=== PATIENT | male | born 1975 | race Caucasian/White ===

== ENCOUNTER 2016-04-21 18:33 | Inpatient (IN) | payer MEDICAID ==
[2016-03-23 15:30] VITALS: Ht 167.6 cm; Wt 83.9 kg
[~2016-04-21] VITALS: Ht 167.6 cm; Wt 83.9 kg
[~2016-04-21 18:33] MED LIST: AMIT10TA6 PO; AMLO5TAB4 PO; BACL10TA PO; CAT.1 PO; CIPR-211 PO; FLOR.1 PO; FLUD0.1T PO; GABA-529 PO; HYDR-3109 PO; IBUP-1480 PO; LEVO500T20 PO; LISI10TA5 PO; LOSA100T11 PO; LOSA25TA3 PO; OXYC-133 PO; SULF1TAB48 PO; TAMS-11 PO; TRAM50TA92 PO; VITD2000 PO
[2016-04-21 18:45] VITALS: BP 74/53; PULSE 69; RESP 15; TEMP 96.9; O2SAT 98
--- NOTE | 2016-04-21 18:57 | NUR ---
Placed in room 01. Placed on brush clearing laborer, blood pressure machine and pulse oximeter. To gown for exam. Side rails up.
--- NOTE | 2016-04-21 19:00 | NUR ---
Pt brought by partner,A&Ox4, pt c/o dizziness, lighheaded,pale , 5/10 lower back pain, pt recently discharge from [place],VSS, pt c/o memory problems, cap refill <3, denies chest pain, no respiratory distress.
--- NOTE | 2016-04-21 19:00 | NUR ---
Dr La at bedside examining patient
[2016-04-21] MEDS ORDERED: NS 1000 ML BAG IV ONE (19:15)
[2016-04-21] MEDS ORDERED: LEVE500T13 PO (19:21)
[2016-04-21 19:58] LABS: BASOPHILS % (AUTO) 0.3 % (0.0-2.0); EOSINOPHILS # (AUTO) 0.1 K/uL (0.0-0.4); EOSINOPHILS % (AUTO) 1.8 % (0.0-4.0); HEMATOCRIT 31.8 % (36-54); HEMOGLOBIN 10.7 g/dL (14.0-18.0); LYMPHOCYTES # (AUTO) 1.6 K/uL (1.0-5.5); LYMPHOCYTES % (AUTO) 22.7 % (20.5-51.5); MEAN CORPUSCULAR HEMOGLOBIN 27 pg (27-31); MEAN CORPUSCULAR HGB CONC 34 % (32-36); MEAN CORPUSCULAR VOLUME 79 fL (79.0-98.0); MONOCYTES # (AUTO) 0.5 K/uL (0.0-1.0); MONOCYTES % (AUTO) 7.6 % (1.7-9.3); NEUTROPHILS # (AUTO) 4.6 K/uL (1.8-7.7); NEUTROPHILS % (AUTO) 67.6 % (40.0-70.0); PLATELET COUNT (AUTO) 629 K/uL (130-430); RED BLOOD CELL COUNT(AUTO) 4.02 MIL/uL (4.2-6.2); RED CELL DISTRIBUTION WIDTH 15.3 % (9.0-15.0); WHITE BLOOD COUNT (AUTO) 6.8 K/uL (4.8-10.8)
[2016-04-21 20:05] LABS: CALCIUM 9.1 mg/dL (8.4-11.0); CREATININE 0.82 mg/dL (0.55-1.30); POTASSIUM 3.7 mmol/L (3.5-5.1)
[2016-04-21 20:10] LABS: ALBUMIN 3.6 g/dL (3.4-4.8); TOTAL BILIRUBIN 0.3 mg/dL (0.0-1.0); TOTAL PROTEIN, SERUM 8.3 g/dL (6.4-8.3)
[2016-04-21 20:12] LABS: PROTHROMBIN TIME 10.4 SECS (9.5-12.5)
--- NOTE | 2016-04-21 20:19 | NUR ---
Pt sleeping at this time, hard to arouse, skin pink and warm, respirations even and unlabored, radial pulses equal and strong.
--- NOTE | 2016-04-21 20:22 | NUR ---
Dr Ness at bedside examining patient
--- NOTE | 2016-04-21 20:30 | NUR ---
Dr Ness notified about pt's BP 152/96, only 1 liter of NS was administered IV.
--- NOTE | 2016-04-21 20:44 | NUR ---
Deepika moreau in ED - 04/21/16 at 2236 by SDEDAFJ Pt awake at this time, VSS, ski pink and warm, cap refill <3.
--- NOTE | 2016-04-21 20:44 | NUR ---
Pt awake at this time, VSS, skin pink and warm, cap refill <3.
[2016-04-21] MEDS ORDERED: CIPR500S3 PO (20:56)
[2016-04-21] MEDS ORDERED: AMLO5TAB4 PO (20:56)
[2016-04-21 21:20] LABS: SALICYLATE 1 mg/dL (3-30)
[2016-04-21 21:39] LABS: ACETAMINOPHEN < 1 ug/mL (1-30); ALCOHOL, BLOOD < 3 mg/dL (<10)
[2016-04-21 21:47] LABS: BILIRUBIN,URINE NEGATIVE (NEGATIVE); BLOOD, URINE NEGATIVE (NEGATIVE); CLARITY/URINE HAZY (CLEAR); COLOR,URINE YELLOW (YELLOW); GLUCOSE,URINE NEGATIVE (NEGATIVE); KETONES,URINE NEGATIVE (NEGATIVE); LEUKOCYTE ESTERASE ,URINE 2+ (NEGATIVE); NITRITE, URINE NEGATIVE (NEGATIVE); PROTEIN URINE NEGATIVE (NEGATIVE); UROBILINOGEN,URINE 0.2 (0.2-1.0)
[2016-04-21] MEDS ORDERED: levETIRAcetam 500 MG TABLET PO ONE (22:15)
[2016-04-21] MEDS ORDERED: HYDROCORTISONE 1%, 28.35 GM TOPICAL CREAM TP PRN (22:15)
[2016-04-21 22:28] LABS: BACTERIA,URINE MODERATE /HPF (None Seen); RBC,URINE NONE SEEN /HPF (0-3); WBC,URINE 20-50 /HPF (0-3)
[2016-04-21 22:29] LABS: MUCUS,URINE 1+ /LPF (None Seen)
[2016-04-21 22:31] LABS: URINE AMORPHOUS URATE 2+ /HPF (None Seen)
--- NOTE | 2016-04-21 22:35 | NUR ---
Pt awake at this time, pt took kepra 500 mg PO, well tolerated
[2016-04-21 22:37] LABS: BARBITURATE, URINE NEGATIVE (NEG <=200); URINE AMPHETAMINE NEGATIVE (NEG <=500)
[2016-04-21 22:38] LABS: BENZODIAZEPINE, URINE NEGATIVE (NEG <=150); CANNABINOID, URINE NEGATIVE (NEG <=50); COCAINE, URINE NEGATIVE (NEG <=150); METHAMPHETAMINES SCREEN,URINE NEGATIVE (NEG <=500); OPIATE, URINE NEGATIVE (NEG <=100); PHENCYCLIDINE SCREEN,URINE NEGATIVE (NEG <=25); UR TRICYCLIC ANTIDEPRESSANTS NEGATIVE (NEG <=300); URINE METHADONE NEGATIVE (NEG <=200); URINE OXYCODONE SCREEN NEGATIVE (NEG <=100); URINE PROPOXYPHENE SCREEN NEGATIVE (NEG <=300)
[2016-04-21] MEDS ORDERED: KETOROLAC TROMETHAMINE 30 MG VIAL IVP ONE (23:15)
--- NOTE | 2016-04-21 23:22 | NUR ---
Report given to Td DEJESUS
[2016-04-22] VITALS (8 sets, daily range): BP systolic 92–157; BP diastolic 59–100; PULSE 59–64; RESP 15–18; TEMP 97.2–98.4; O2SAT 97–100
--- NOTE | 2016-04-22 00:48 | NUR ---
ADMISSION NOTE Received patient from ER via gurney. Patient admitted with diagnosis of Syncope. Patient is awake, alert, oriented X 4. Patient oriented to hospital room, call light, toileting, pain management and safety-teach back done. Patient informed that Pam and yessica will be his nursed and that their room number is 114A. Personal belongings checked and Belongings List documented. Call light within reach.
--- NOTE | 2016-04-22 01:00 | NUR ---
Patient will be admitted to care of DR FAM. Admitted to TELEMETRY unit. Will go to room 114-A. Belongings list completed. Summary report printed. Report given to REGINA .
--- NOTE | 2016-04-22 01:15 | NUR ---
CONSULT: DR TATE (DR AYON O/C) Consult was called, RE syncope sw Jailene
--- NOTE | 2016-04-22 01:16 | NUR ---
CONSULT: DR Perla GRULLON Consult was called, RE syncope sw Jailene
--- NOTE | 2016-04-22 02:45 | NUR ---
Rounds Patient has refused PRN tylenol that MD ordered. Is awake, and oriented X4, currently in supine position, no signs of acute distress noted, call light in reach, bed in low position, padded rails used as seizure precaution. Zavala catheter is draining well to gravity, continue to monitor
--- NOTE | 2016-04-22 02:45 | NUR ---
paged for Dr Kidd, dialed . s/w Ludy.
--- NOTE | 2016-04-22 03:36 | NUR ---
DR. FAM/PAIN MEDICATION ORDER AWARE PT IS COMPLAINING OF LOWER BACK PAIN 12/25, ORDERED TYLENOL 650MG PO FOR SEVERE PAIN. REPEATED ORDER TO AND CONFIRMED SHE WANTED THIS PAIN MED FOR SEVERE PAIN. ORDER IN PLACE. Addendum: 04/22/16 at 0343 by Vaishali Truong RN NOTE PUT IN BY WRONG PROVIDER.
[2016-04-22] MEDS ORDERED: ACETAMINOPHEN 325 MG TABLET PO PRN ×2 (03:45)
--- NOTE | 2016-04-22 04:12 | NUR ---
paged for Dr Kidd, dialed . s/w Ana.
--- NOTE | 2016-04-22 04:58 | NUR ---
second page for Dr Kidd, dialed . s/w Lara.
--- NOTE | 2016-04-22 05:15 | NUR ---
New med order for Benadryl Patient has requested Benadryl because "he is afraid to fall asleep he might have another seizure". MD order for 50 mg benadryl one time PO has been noted, pharmacy notified, med to be given as soon as pharmacy acknowledges new order
--- NOTE | 2016-04-22 05:58 | NUR ---
2D ECHO: NOTIFIED VIA PAGE G[facility]
[2016-04-22] MEDS ORDERED: DIPHENHYDRAMINE HCL 50 MG CAPSULE PO ONE (06:00)
--- NOTE | 2016-04-22 06:54 | NUR ---
refused accucheck Patient claims that he is not diabetic and does not want an accucheck at this time. The family also confirms that he is not diabetic. Order to be endorsed to be clarified by day shift with
--- NOTE | 2016-04-22 07:19 | NUR ---
Zavala Catheter was indwelling in patient from home Patient states that the indwelling catheter he has was in use at home. He says that the urine collection bag was changed in the ER but that the actual catheter was in use at his home.
--- NOTE | 2016-04-22 07:20 | NUR ---
Closing note report given to oncoming day nurse, bed is in low position, patient shows no signs of acute distress, call light is in reach, bed is in low position, indwelling catheter is flowing well to gravity. Care endorsed
--- NOTE | 2016-04-22 07:33 | NUR ---
DIET ORDER/CALLED DIETARY WAITING FOR BREAKFAST TRAY TO BE DELIVERED.
--- NOTE | 2016-04-22 08:30 | NUR ---
Pt in room in bed resting @ this time pt c/o pain 12/25 @ this time RN notified V/S stable Bp 97/66 P62 temp 97.4 RR 18 02 97% nurse continue to monitor pt
[2016-04-22] MEDS ORDERED: levETIRAcetam 500 MG TABLET PO SCH (09:00)
--- NOTE | 2016-04-22 09:21 | NUR ---
CALLED CARDIOLOGY CONSULT TO DR TATE, DR AYON INSTRUCTIONAL COORDINATOR, RE: SYNCOPE. SPOKE TO EMERITA
--- NOTE | 2016-04-22 09:24 | NUR ---
CALLED NEURO CONSULT TO Barbara ANDINO RE: SEIZURE. SPOKE TO EMERITA
--- NOTE | 2016-04-22 09:25 | NUR ---
CALLED ENDOCRINE CONSULT TO DR PATEL, RE: R/O ADRENAL INSUFFICIENCY. SPOKE TO VICENTA
--- NOTE | 2016-04-22 10:04 | NUR ---
Pt in room in bed awake @ this time pt c/o pain 12/25 pt requesting pain medication WORD PROCESSING SUPERVISOR notified
[2016-04-22] MEDS ORDERED: IOHEXOL 100 ML IV ONE (11:38)
[2016-04-22 11:49] LABS: THYROID STIMULATING HORMONE 0.54 uIu/mL (0.34-4.82)
--- NOTE | 2016-04-22 12:10 | NUR ---
Pt off the unit @ this time for CT of the head
--- NOTE | 2016-04-22 14:15 | NUR ---
Pt in room in bed interacting with visitor @ this time pt continue to c/o pain Pt seen by Doctor awaiting for orders for pt pain @ this time
--- NOTE | 2016-04-22 16:09 | NUR ---
Pt continue to c/o pain 12/25 pt seen by Doctor no new orders @ this time
--- NOTE | 2016-04-22 16:39 | NUR ---
At about 1639 pt pushed call light stating he fell out of bed & got back in bed pt stated he hit his head on the floor when nurse got to pt room pt was sitting on bed with call light at his side pt V/S was taken Bp 98/67 p 72 temp 98.0 02 98% Charge Nurse notified Doctor called as well no skin break no injuries notice @ the time pt moved closer to nurse station for safety
--- NOTE | 2016-04-22 18:07 | NUR ---
Pt in room in bed resting @ this time with family @ his bedside call light in reach bed in low position wheels locked bed alarm on @ this time pt encourage to use call light for help nurse continue to monitor pt for safety
--- NOTE | 2016-04-22 18:26 | NUR ---
PAGED DR FAM, MAY ANDINO.
[2016-04-22] MEDS ORDERED: traMADol HCL HCL 50 MG TABLET (ULTRAM) PO PRN (19:15)
--- NOTE | 2016-04-22 19:30 | NUR ---
RECEIVED THE PT FROM THE DAY NURSE PT A/A/OX4 VS TAKEN PT STATES HE FELL AND WAS MOVED TO ROOM 105,C/O SEVERE BACK PAIN .ICE PACKS GIVEN REQUESTED.PAIN MEDICATION GIVEN BY THE DAY NURSE ,PT STATES ULTRAM DOES NOT WORK.IV INTACT TO RT FOREARM..CALL LIGHT WITHIN REACH .SEIZURE PADS IN PLACE.CONTINUE TO MONITOR.
--- NOTE | 2016-04-22 20:12 | NUR ---
NOTES PT C/O SEVERE BACK PAIN CHARGE NURSE AND MYSELF AT THE BEDSIDE AND FELT THE PTS FOREHEAD ,PER REQUEST OF THE PT.NO REDNESS OR SWELLING NOTED.PT STATES DR BOOTHE WAS GOING TO ORDER PAIN MEDICATION THEN WALKED OUT.CALL PLACED TO DR FAM.
--- NOTE | 2016-04-22 20:13 | NUR ---
Paged Dr Kidd, ana paula Crowe.
--- NOTE | 2016-04-22 20:15 | NUR ---
Patient stated he has a bump on his forehead: When doing rounds charge nurse and Kendrick ECKERT entered the room at the same time; Patient stated he has a bump on his left forehead (where he is pointing at) next to his hairline related to his fall from the previous shift. Assessment done by the Charge Nurse Ragini and Primary Nurse Kendrick but no noted bump or redness over the left forehead. When we said that there is no bump noted he got upset, and said we don't believe on him with very loud voice. Also upset about no pain medication was ordered but Ultram.
--- NOTE | 2016-04-22 20:16 | NUR ---
NOTES PT REFUSING LAB DRAW AND STATES HE MIGHT SIGN OUT AMA.WAITING FOR DR FAM TO CALL.
--- NOTE | 2016-04-22 20:18 | NUR ---
NOTES SPOKE WITH DR FAM WHO GAVE A ONE TIME ORDER FOR PAIN MEDICATION.PT WAS TOLD OF THE NEW ORDER.AND STATED THAT IS NOT ENOUGH.WIFEAND OTHER FAMILY MEMBERS ARE NIW HERE TREATING THE CHARGE NURSE AND MYSELF.SECURITY NOW HERE.ALONG WITH NURSING SENIOR TEST ENGINEER. Addendum: 04/22/16 at 2112 by Kendrick Tan LVN NOT TREATING BUT THREATENING
--- NOTE | 2016-04-22 20:55 | NUR ---
Family at bedside: Family at bedside and talking and yelling at the same time; not happy because they said patient is not getting appropriate pain medication that he is suppose to have. Tried to explained the reason why MD doesn't want to give strong pain medication but doesn't want to listen; keeps on talking, yelling at the same time, security present and steffen house supervisor. Stated wants to leave the hospital, offer to sign AMA form but refused to sign.
--- NOTE | 2016-04-22 21:02 | NUR ---
NOTES PT REFUSED TO SIGN OUT AMA ,ALSO REFUSED TO GIVE ME HIS ARM BAND.MONITOR AND SALINE LOCK WERE REMOVED.PT TAKEN TO THE CAR BY FAMILY MEMBERS.
--- NOTE | 2016-04-22 21:05 | NUR ---
Paged Dr Kidd, ana paula Dyson.
--- NOTE | 2016-04-22 21:12 | NUR ---
CALL PLACED TO DR FAM AND DR AYON .DR FAM CALLED BACK AND WAS INFORMED OF THE AMA.
[2016-04-22] MEDS ORDERED: HYDROmorphone 1 MG INJ. 1 MG/ML AMPUL IVP ONE (21:15)
== END 2016-04-22 21:02 | disposition left against medical advice (07) | DRG 204 ==
LOC: SED 18:33 → STU 04-22 00:25
DX: R55 Syncope and collapse (principal); N39.0 Urinary tract infection, site not specified; I10 Essential (primary) hypertension; Z53.21 Procedure and treatment not carried out due to patient leaving prior to being seen by health care provider; G89.4 Chronic pain syndrome; H54.0 Blindness, both eyes; Z95.0 Presence of cardiac pacemaker; N40.1 Benign prostatic hyperplasia with lower urinary tract symptoms; W19.XXXA Unspecified fall, initial encounter; M45.9 Ankylosing spondylitis of unspecified sites in spine; E11.9 Type 2 diabetes mellitus without complications
CPT/HCPCS: 36415; 70470-TC; 71010; 72125-TC; 80053; 80307; 81000-TC; 82550-TC; 82607; 83605; 84443-TC; 84484; 85025; 85610-TC; 85730-TC; 87040-TC; 87081; 87086; 93005; 93306; 96360; 99285; G0480; G0481; G0482; J1885; J7030; Q0163; Q9967

== ENCOUNTER 2016-07-23 18:19 | Emergency (ER) | payer MEDICAID ==
[~2016-07-23] VITALS: Ht 167.6 cm; Wt 90.7 kg
[~2016-07-23 18:19] MED LIST changes: -AMIT10TA6 PO; -BACL10TA PO; -CIPR-211 PO; +CIPR500S3 PO; -FLOR.1 PO; -FLUD0.1T PO; -HYDR-3109 PO; -IBUP-1480 PO; +LEVE500T13 PO; -LEVO500T20 PO; -LISI10TA5 PO; -LOSA100T11 PO; -LOSA25TA3 PO; -OXYC-133 PO; -SULF1TAB48 PO; -TAMS-11 PO; -TRAM50TA92 PO
[2016-07-23 18:27] VITALS: BP_SYST 117
[2016-07-23 19:52] LABS: BILIRUBIN,URINE NEGATIVE (NEGATIVE); CLARITY/URINE CLEAR (CLEAR); COLOR,URINE YELLOW (YELLOW); GLUCOSE,URINE NEGATIVE (NEGATIVE); KETONES,URINE NEGATIVE (NEGATIVE); LEUKOCYTE ESTERASE ,URINE NEGATIVE (NEGATIVE); NITRITE, URINE NEGATIVE (NEGATIVE); PROTEIN URINE 1+ (NEGATIVE); UROBILINOGEN,URINE 0.2 (0.2-1.0)
[2016-07-23 19:53] LABS: BLOOD, URINE TRACE (NEGATIVE)
[2016-07-23 20:06] LABS: BACTERIA,URINE FEW /HPF (None Seen)
[2016-07-23 20:07] LABS: MUCUS,URINE 1+ /LPF (None Seen); OTHER CASTS, URINE WBC CASTS 1+ /LPF (None Seen)
[2016-07-23 21:30] VITALS: BP_SYST 120
== END 2016-07-23 21:30 | disposition home or self-care (01) ==
LOC: SED 18:19
DX: R33.9 Retention of urine, unspecified (principal); N39.0 Urinary tract infection, site not specified; I10 Essential (primary) hypertension; E11.29 Type 2 diabetes mellitus with other diabetic kidney complication; N28.9 Disorder of kidney and ureter, unspecified; H54.41 Blindness, right eye, normal vision left eye
CPT/HCPCS: 81000-TC; 99284

== ENCOUNTER 2016-08-24 19:45 | Inpatient (IN) | payer MEDICAID ==
[~2016-08-24] VITALS: Ht 167.6 cm; Wt 86.6 kg
[2016-08-24 19:50] VITALS: BP_SYST 161
[2016-08-24] MEDS ORDERED: NACL 0.9% 1,000 ML IV ONE (20:45)
[2016-08-24 21:15] LABS: BASOPHILS # (AUTO) 0.1 K/uL (0.0-0.2); BASOPHILS % (AUTO) 1.4 % (0.0-2.0); CALCIUM 9.5 mg/dL (8.4-11.0); CREATININE 1.07 mg/dL (0.55-1.30); EOSINOPHILS # (AUTO) 0.2 K/uL (0.0-0.4); EOSINOPHILS % (AUTO) 1.6 % (0.0-4.0); HEMATOCRIT 42.9 % (36-54); HEMOGLOBIN 14.1 g/dL (14.0-18.0); LYMPHOCYTES # (AUTO) 2.3 K/uL (1.0-5.5); MEAN CORPUSCULAR HEMOGLOBIN 27 pg (27-31); MEAN CORPUSCULAR HGB CONC 33 % (32-36); MEAN CORPUSCULAR VOLUME 83 fL (79.0-98.0); MONOCYTES # (AUTO) 0.8 K/uL (0.0-1.0); MONOCYTES % (AUTO) 8.5 % (1.7-9.3); NEUTROPHILS # (AUTO) 6.6 K/uL (1.8-7.7); NEUTROPHILS % (AUTO) 65.5 % (40.0-70.0); PLATELET COUNT (AUTO) 261 K/uL (130-430); POTASSIUM 3.8 mmol/L (3.5-5.1); RED BLOOD CELL COUNT(AUTO) 5.16 MIL/uL (4.2-6.2); RED CELL DISTRIBUTION WIDTH 19.8 % (9.0-15.0)
[2016-08-24 21:20] LABS: TOTAL BILIRUBIN 0.4 mg/dL (0.0-1.0); TOTAL PROTEIN, SERUM 9.2 g/dL (6.4-8.3)
[2016-08-24 21:33] LABS: BILIRUBIN,URINE NEGATIVE (NEGATIVE); BLOOD, URINE 3+ (NEGATIVE); KETONES,URINE NEGATIVE (NEGATIVE); LEUKOCYTE ESTERASE ,URINE 3+ (NEGATIVE); PROTEIN URINE 2+ (NEGATIVE)
[2016-08-24 21:41] LABS: CLARITY/URINE HAZY (CLEAR); COLOR,URINE ORANGE (YELLOW); GLUCOSE,URINE NEGATIVE (NEGATIVE); NITRITE, URINE NEGATIVE (NEGATIVE)
[2016-08-24 21:42] LABS: WBC,URINE 50-80 /HPF (0-3)
[2016-08-24 21:43] LABS: BACTERIA,URINE FEW /HPF (None Seen); MUCUS,URINE None Seen /LPF (None Seen)
[2016-08-24] MEDS ORDERED: cefTRIAXone 2 GM VIAL ONE (22:43)
[2016-08-24 23:15] VITALS: BP_SYST 145
[2016-08-24] MEDS ORDERED: LEVOFLOXACIN 500 MG/D5W 100 ML IV SCH (23:30)
[2016-08-25] MEDS ORDERED: ONDANSETRON HCL 4 MG/2 ML VIAL IVP PRN (01:00)
[2016-08-25] MEDS: MORPHINE 4 MG/ML INJ. SYRINGE IVP PRN ×6 (01:19→21:42)
[2016-08-25] MEDS: DIPHENHYDRAMINE INJ 50 MG/ML VIAL IVP PRN ×4 (01:36→18:18)
[2016-08-25] MEDS ORDERED: LEVOFLOXACIN 500 MG/D5W 100 ML IV ONE (02:32)
[2016-08-25] MEDS: NACL 0.9% 1,000 ML IV SCH ×3 (03:23→21:27)
[2016-08-25 04:38] VITALS: BP_SYST 129
[2016-08-25 08:00] VITALS: BP_SYST 117
[2016-08-25] MEDS ORDERED: DEXTROSE 50% JECT 50 ML DISP.SYRIN IVP PRN (08:00)
[2016-08-25] MEDS: GABAPENTIN 100 MG CAPSULE PO SCH ×3 (09:00→21:16)
[2016-08-25] MEDS: cefTRIAXone 1 GM in D5W 50 ML IV SCH (09:26)
[2016-08-25] MEDS: BACLOFEN 10 MG TABLET PO SCH ×4 (09:26→21:16)
[2016-08-25] MEDS: levETIRAcetam 500 MG TABLET PO SCH ×2 (09:27→21:16)
[2016-08-25] MEDS: amLODIPine BESYLATE 5 MG TABLET PO SCH (09:27)
[2016-08-25] MEDS: CIPROFLOXACIN HCL 500 MG TABLET PO SCH ×2 (09:27→21:17)
[2016-08-25] MEDS: cloNIDine HCL 0.1 MG TABLET PO SCH ×2 (09:27→21:16)
[2016-08-25] MEDS: HYDROcodone/ACETAMIN 5-325 MG TAB (NORCO/ VICODIN) PO PRN (09:28)
[2016-08-25 12:00] VITALS: BP_SYST 120
[2016-08-25 16:00] VITALS: BP_SYST 110
[2016-08-25 20:18] VITALS: BP_SYST 131
[2016-08-25] MEDS: INSULIN REGULAR, HUMAN 100 UNITS/ML, 10 ML VIAL (novoLIN R) SUBCUT PRN (21:27)
[2016-08-26] MEDS: DIPHENHYDRAMINE INJ 50 MG/ML VIAL IVP PRN ×4 (00:30→19:38)
[2016-08-26] MEDS ORDERED: MORPHINE 4 MG/ML INJ. SYRINGE IVP ONE ×2 (01:00→22:45)
[2016-08-26] MEDS ORDERED: HYDROcodone/ACETAMIN 5-325 MG TAB (NORCO/ VICODIN) PO ONE ×2 (01:00→22:45)
[2016-08-26 01:01] VITALS: BP_SYST 102
[2016-08-26] MEDS: MORPHINE 4 MG/ML INJ. SYRINGE IVP PRN ×5 (04:41→21:46)
[2016-08-26] MEDS: INSULIN REGULAR, HUMAN 100 UNITS/ML, 10 ML VIAL (novoLIN R) SUBCUT PRN (06:16)
[2016-08-26 06:31] VITALS: BP_SYST 126
[2016-08-26] MEDS: NACL 0.9% 1,000 ML IV SCH ×2 (06:33→14:45)
[2016-08-26 07:00] LABS: BASOPHILS % (AUTO) 0.4 % (0.0-2.0); EOSINOPHILS # (AUTO) 0.1 K/uL (0.0-0.4); EOSINOPHILS % (AUTO) 1.9 % (0.0-4.0); HEMATOCRIT 36.8 % (36-54); HEMOGLOBIN 12.2 g/dL (14.0-18.0); LYMPHOCYTES % (AUTO) 31.2 % (20.5-51.5); MEAN CORPUSCULAR HEMOGLOBIN 27 pg (27-31); MEAN CORPUSCULAR HGB CONC 33 % (32-36); MEAN CORPUSCULAR VOLUME 83 fL (79.0-98.0); MONOCYTES # (AUTO) 0.4 K/uL (0.0-1.0); MONOCYTES % (AUTO) 6.3 % (1.7-9.3); NEUTROPHILS % (AUTO) 60.2 % (40.0-70.0); PLATELET COUNT (AUTO) 297 K/uL (130-430); RED BLOOD CELL COUNT(AUTO) 4.45 MIL/uL (4.2-6.2); RED CELL DISTRIBUTION WIDTH 19.3 % (9.0-15.0); WHITE BLOOD COUNT (AUTO) 6.5 K/uL (4.8-10.8)
[2016-08-26 07:23] LABS: CALCIUM 8.8 mg/dL (8.4-11.0); CREATININE 0.98 mg/dL (0.55-1.30); POTASSIUM 4.1 mmol/L (3.5-5.1)
[2016-08-26 08:00] VITALS: BP_SYST 100
[2016-08-26] MEDS: amLODIPine BESYLATE 5 MG TABLET PO SCH (08:48)
[2016-08-26] MEDS: cloNIDine HCL 0.1 MG TABLET PO SCH ×2 (08:48→21:20)
[2016-08-26] MEDS: GABAPENTIN 100 MG CAPSULE PO SCH ×3 (08:48→21:21)
[2016-08-26] MEDS: CIPROFLOXACIN HCL 500 MG TABLET PO SCH (08:48)
[2016-08-26] MEDS: BACLOFEN 10 MG TABLET PO SCH ×3 (08:49→21:20)
[2016-08-26] MEDS: levETIRAcetam 500 MG TABLET PO SCH ×2 (08:49→21:20)
[2016-08-26] MEDS: cefTRIAXone 1 GM in D5W 50 ML IV SCH (08:51)
[2016-08-26] MEDS ORDERED: DIPHENHYDRAMINE INJ 50 MG/ML VIAL IVP ONE (10:30)
[2016-08-26] MEDS ORDERED: IOHEXOL 350 mgI/mL, 150 ML INFUS..BTL IV ONE (11:09)
[2016-08-26 12:00] VITALS: BP_SYST 107
[2016-08-26] MEDS: HYDROcodone/ACETAMIN 5-325 MG TAB (NORCO/ VICODIN) PO PRN (12:50)
[2016-08-26 16:00] VITALS: BP_SYST 110
[2016-08-26 19:40] VITALS: BP_SYST 124
[2016-08-27 00:17] VITALS: BP_SYST 137
[2016-08-27] MEDS: DIPHENHYDRAMINE INJ 50 MG/ML VIAL IVP PRN ×4 (01:42→22:58)
[2016-08-27] MEDS ORDERED: MORPHINE 4 MG/ML INJ. SYRINGE IVP PRN ×2 (02:45→05:30)
[2016-08-27] MEDS ORDERED: HYDROcodone/ACETAMIN 5-325 MG TAB (NORCO/ VICODIN) PO PRN ×2 (02:45→05:30)
[2016-08-27] MEDS: NACL 0.9% 1,000 ML IV SCH ×2 (03:44→10:45)
[2016-08-27 04:20] VITALS: BP_SYST 112
[2016-08-27] MEDS ORDERED: KETOROLAC TROMETHAMINE 30 MG VIAL IVP PRN (05:30)
[2016-08-27] MEDS: MORPHINE 4 MG/ML INJ. SYRINGE IVP PRN ×7 (06:02→21:34)
[2016-08-27] MEDS: HYDROcodone/ACETAMIN 10-325 MG TAB PO PRN ×5 (06:03→22:51)
[2016-08-27] MEDS: cefTRIAXone 1 GM in D5W 50 ML IV SCH (08:37)
[2016-08-27] MEDS: GABAPENTIN 100 MG CAPSULE PO SCH ×3 (08:37→21:30)
[2016-08-27] MEDS: BACLOFEN 10 MG TABLET PO SCH ×3 (08:37→21:31)
[2016-08-27] MEDS: CARISOPRODOL 350 MG TABLET PO SCH ×4 (08:37→21:00)
[2016-08-27] MEDS: levETIRAcetam 500 MG TABLET PO SCH ×2 (08:37→21:30)
[2016-08-27] MEDS: KETOROLAC TROMETHAMINE 30 MG VIAL IVP PRN ×2 (08:39→15:01)
[2016-08-27 08:40] VITALS: BP_SYST 137
[2016-08-27] MEDS: cloNIDine HCL 0.1 MG TABLET PO SCH ×2 (08:40→21:36)
[2016-08-27] MEDS ORDERED: levETIRAcetam 500 MG TABLET PO ONE (10:00)
[2016-08-27 12:12] VITALS: BP_SYST 111
[2016-08-27 16:24] VITALS: BP_SYST 116
[2016-08-27] MEDS ORDERED: DIPHENHYDRAMINE HCL 50 MG CAPSULE PO ONE (18:15)
[2016-08-27 19:20] VITALS: BP_SYST 104
[2016-08-27] MEDS: DIPHENHYDRAMINE HCL 50 MG CAPSULE PO SCH (21:31)
[2016-08-28 00:32] VITALS: BP_SYST 135
[2016-08-28] MEDS: MORPHINE 4 MG/ML INJ. SYRINGE IVP PRN ×11 (00:46→22:59)
[2016-08-28] MEDS: HYDROcodone/ACETAMIN 10-325 MG TAB PO PRN ×5 (02:49→22:59)
[2016-08-28 04:00] VITALS: BP_SYST 135
[2016-08-28] MEDS: CARISOPRODOL 350 MG TABLET PO SCH ×4 (08:09→20:40)
[2016-08-28] MEDS: levETIRAcetam 500 MG TABLET PO SCH ×2 (08:09→20:40)
[2016-08-28] MEDS: BACLOFEN 10 MG TABLET PO SCH ×3 (08:09→20:40)
[2016-08-28] MEDS: DIPHENHYDRAMINE HCL 50 MG CAPSULE PO SCH ×3 (08:09→20:40)
[2016-08-28] MEDS: cefTRIAXone 1 GM in D5W 50 ML IV SCH (08:09)
[2016-08-28] MEDS: GABAPENTIN 100 MG CAPSULE PO SCH ×3 (08:09→20:40)
[2016-08-28] MEDS: cloNIDine HCL 0.1 MG TABLET PO SCH ×2 (08:13→20:40)
[2016-08-28 08:28] VITALS: BP_SYST 118
[2016-08-28 11:26] VITALS: BP_SYST 123
[2016-08-28] MEDS: DIPHENHYDRAMINE INJ 50 MG/ML VIAL IVP PRN (12:03)
[2016-08-28] MEDS ORDERED: levETIRAcetam 500 MG in NS 100 ML IV STA (15:21)
[2016-08-28 15:23] VITALS: BP_SYST 131
[2016-08-28] MEDS ORDERED: LORazepam 2 MG/ML VIAL IM PRN (19:00)
[2016-08-28 19:15] VITALS: BP_SYST 142
[2016-08-28] MEDS: ACETAMINOPHEN 325 MG TABLET PO PRN (20:41)
[2016-08-28] MEDS ORDERED: VANCOMYCIN HCL 1 GM/NS PREMIX 250 ML IV ONE (22:45)
[2016-08-28] MEDS ORDERED: VANCOMYCIN HCL 1000 MG/VIAL IV ONE (23:00)
[2016-08-29] VITALS: BP_SYST 128
[2016-08-29] MEDS: DIPHENHYDRAMINE INJ 50 MG/ML VIAL IVP PRN ×2 (01:16→21:18)
[2016-08-29] MEDS: MORPHINE 4 MG/ML INJ. SYRINGE IVP PRN ×11 (01:17→21:18)
[2016-08-29] MEDS: HYDROcodone/ACETAMIN 10-325 MG TAB PO PRN ×4 (03:25→18:28)
[2016-08-29 04:00] VITALS: BP_SYST 129
[2016-08-29] MEDS: ACETAMINOPHEN 325 MG TABLET PO PRN (04:52)
[2016-08-29 07:30] VITALS: BP_SYST 121
[2016-08-29 07:38] LABS: CALCIUM 8.7 mg/dL (8.4-11.0); CREATININE 0.96 mg/dL (0.55-1.30); POTASSIUM 3.7 mmol/L (3.5-5.1)
[2016-08-29 07:40] LABS: BASOPHILS % (AUTO) 0.4 % (0.0-2.0); EOSINOPHILS # (AUTO) 0.1 K/uL (0.0-0.4); EOSINOPHILS % (AUTO) 2.3 % (0.0-4.0); HEMATOCRIT 36.1 % (36-54); LYMPHOCYTES # (AUTO) 0.9 K/uL (1.0-5.5); LYMPHOCYTES % (AUTO) 16.4 % (20.5-51.5); MEAN CORPUSCULAR HEMOGLOBIN 27 pg (27-31); MEAN CORPUSCULAR HGB CONC 33 % (32-36); MEAN CORPUSCULAR VOLUME 82 fL (79.0-98.0); MONOCYTES # (AUTO) 0.4 K/uL (0.0-1.0); MONOCYTES % (AUTO) 7.6 % (1.7-9.3); NEUTROPHILS # (AUTO) 4.4 K/uL (1.8-7.7); NEUTROPHILS % (AUTO) 73.3 % (40.0-70.0); PLATELET COUNT (AUTO) 240 K/uL (130-430); RED BLOOD CELL COUNT(AUTO) 4.39 MIL/uL (4.2-6.2); RED CELL DISTRIBUTION WIDTH 19.3 % (9.0-15.0); WHITE BLOOD COUNT (AUTO) 5.8 K/uL (4.8-10.8)
[2016-08-29] MEDS: CARISOPRODOL 350 MG TABLET PO SCH ×4 (08:50→21:16)
[2016-08-29] MEDS: BACLOFEN 10 MG TABLET PO SCH ×3 (08:51→21:16)
[2016-08-29] MEDS: GABAPENTIN 100 MG CAPSULE PO SCH ×3 (08:51→21:16)
[2016-08-29] MEDS: levETIRAcetam 500 MG TABLET PO SCH ×2 (08:51→21:17)
[2016-08-29] MEDS: DIPHENHYDRAMINE HCL 50 MG CAPSULE PO SCH ×3 (08:51→21:00)
[2016-08-29] MEDS: cloNIDine HCL 0.1 MG TABLET PO SCH ×2 (08:52→21:17)
[2016-08-29] MEDS: cefTRIAXone 1 GM in D5W 50 ML IV SCH (08:53)
[2016-08-29 11:27] VITALS: BP_SYST 121
[2016-08-29] MEDS: VANCOMYCIN HCL 1,250 MG in NS 250 ML IV SCH ×2 (13:44→23:29)
[2016-08-29 15:52] VITALS: BP_SYST 122
[2016-08-30] VITALS (7 sets, daily range): BP systolic 98–122
[2016-08-30] MEDS: MORPHINE 4 MG/ML INJ. SYRINGE IVP PRN ×8 (00:20→21:54)
[2016-08-30] MEDS: ACETAMINOPHEN 325 MG TABLET PO PRN ×2 (01:58→18:06)
[2016-08-30] MEDS: HYDROcodone/ACETAMIN 10-325 MG TAB PO PRN ×2 (04:24→10:04)
[2016-08-30] MEDS: KETOROLAC TROMETHAMINE 30 MG VIAL IVP PRN (08:54)
[2016-08-30] MEDS: CHOLECALCIFEROL (VITAMIN D3) 2,000 UNIT TABLET PO SCH (08:56)
[2016-08-30] MEDS: GABAPENTIN 100 MG CAPSULE PO SCH ×3 (08:57→21:55)
[2016-08-30] MEDS: levETIRAcetam 500 MG TABLET PO SCH ×2 (08:57→21:56)
[2016-08-30] MEDS: BACLOFEN 10 MG TABLET PO SCH ×3 (08:57→21:56)
[2016-08-30] MEDS: DIPHENHYDRAMINE HCL 50 MG CAPSULE PO SCH ×3 (08:58→21:56)
[2016-08-30] MEDS: CARISOPRODOL 350 MG TABLET PO SCH ×4 (08:58→21:58)
[2016-08-30] MEDS: cloNIDine HCL 0.1 MG TABLET PO SCH ×2 (08:59→21:55)
[2016-08-30] MEDS: cefTRIAXone 1 GM in D5W 50 ML IV SCH (09:11)
[2016-08-30] MEDS: DIPHENHYDRAMINE INJ 50 MG/ML VIAL IVP PRN (09:18)
[2016-08-30] MEDS: VANCOMYCIN HCL 1,250 MG in NS 250 ML IV SCH (12:27)
[2016-08-30 13:18] LABS: BASOPHILS % (AUTO) 0.5 % (0.0-2.0); EOSINOPHILS # (AUTO) 0.3 K/uL (0.0-0.4); EOSINOPHILS % (AUTO) 3.9 % (0.0-4.0); HEMATOCRIT 36.2 % (36-54); LYMPHOCYTES # (AUTO) 1.3 K/uL (1.0-5.5); LYMPHOCYTES % (AUTO) 16.2 % (20.5-51.5); MEAN CORPUSCULAR HEMOGLOBIN 27 pg (27-31); MEAN CORPUSCULAR HGB CONC 33 % (32-36); MEAN CORPUSCULAR VOLUME 82 fL (79.0-98.0); MONOCYTES # (AUTO) 0.7 K/uL (0.0-1.0); MONOCYTES % (AUTO) 8.8 % (1.7-9.3); NEUTROPHILS # (AUTO) 5.7 K/uL (1.8-7.7); NEUTROPHILS % (AUTO) 70.6 % (40.0-70.0); PLATELET COUNT (AUTO) 238 K/uL (130-430); RED BLOOD CELL COUNT(AUTO) 4.44 MIL/uL (4.2-6.2); RED CELL DISTRIBUTION WIDTH 19.3 % (9.0-15.0)
[2016-08-30 13:22] LABS: CALCIUM 8.6 mg/dL (8.4-11.0); CREATININE 1.07 mg/dL (0.55-1.30); POTASSIUM 3.3 mmol/L (3.5-5.1)
[2016-08-30] MEDS: LORazepam 2 MG/ML VIAL IVP PRN ×2 (16:35→23:49)
[2016-08-30] MEDS ORDERED: ENOXAPARIN SODIUM 100 MG/ML SYRINGE SUBCUT SCH (21:00)
[2016-08-30] MEDS ORDERED: IOHEXOL 350 mgI/mL, 150 ML INFUS..BTL IV ONE (21:09)
[2016-08-30] MEDS ORDERED: POTASSIUM CHLORIDE 20 MEQ TAB.PRT.SR PO ONE (23:00)
[2016-08-31] VITALS (8 sets, daily range): BP systolic 101–132
[2016-08-31 00:48] LABS: ABG TOTAL HEMOGLOBIN 12.8 G/dL (12.0-18.0); BLOOD GAS BASE EXCESS 1.5 mmol/L (-3.0-3.0); BLOOD GAS COHb% 0.5 % (0.5-1.5); BLOOD GAS PH 7.467 (7.350-7.450); BLOOD O2Hb% 92.1 % (94.0-97.0)
[2016-08-31] MEDS: VANCOMYCIN HCL 1,250 MG in NS 250 ML IV SCH ×2 (01:00→12:14)
[2016-08-31] MEDS: MORPHINE 4 MG/ML INJ. SYRINGE IVP PRN ×6 (02:45→23:45)
[2016-08-31] MEDS: ACETAMINOPHEN 325 MG TABLET PO PRN ×3 (02:56→20:40)
[2016-08-31] MEDS: DIPHENHYDRAMINE INJ 50 MG/ML VIAL IVP PRN ×2 (03:54→20:49)
[2016-08-31] MEDS: LevALBUTEROL HCL 1.25 MG/0.5 ML *CONC.* VIAL.NEB (XOPENEX CONC.) INH SCH ×3 (07:44→20:15)
[2016-08-31 09:07] LABS: CALCIUM 8.9 mg/dL (8.4-11.0); CREATININE 1.03 mg/dL (0.55-1.30); POTASSIUM 4.1 mmol/L (3.5-5.1)
[2016-08-31 09:11] LABS: ALBUMIN 3.4 g/dL (3.4-4.8); BASOPHILS % (AUTO) 0.4 % (0.0-2.0); EOSINOPHILS # (AUTO) 0.2 K/uL (0.0-0.4); EOSINOPHILS % (AUTO) 2.4 % (0.0-4.0); HEMATOCRIT 35.9 % (36-54); HEMOGLOBIN 11.9 g/dL (14.0-18.0); LYMPHOCYTES # (AUTO) 1.5 K/uL (1.0-5.5); LYMPHOCYTES % (AUTO) 15.5 % (20.5-51.5); MEAN CORPUSCULAR HEMOGLOBIN 27 pg (27-31); MEAN CORPUSCULAR HGB CONC 33 % (32-36); MEAN CORPUSCULAR VOLUME 81 fL (79.0-98.0); MONOCYTES # (AUTO) 1.1 K/uL (0.0-1.0); MONOCYTES % (AUTO) 11.4 % (1.7-9.3); NEUTROPHILS # (AUTO) 6.6 K/uL (1.8-7.7); NEUTROPHILS % (AUTO) 70.3 % (40.0-70.0); PLATELET COUNT (AUTO) 179 K/uL (130-430); RED BLOOD CELL COUNT(AUTO) 4.42 MIL/uL (4.2-6.2); TOTAL BILIRUBIN 0.8 mg/dL (0.0-1.0); TOTAL PROTEIN, SERUM 8.5 g/dL (6.4-8.3); WHITE BLOOD COUNT (AUTO) 9.4 K/uL (4.8-10.8)
[2016-08-31] MEDS: levETIRAcetam 500 MG TABLET PO SCH ×2 (09:18→21:11)
[2016-08-31] MEDS: GABAPENTIN 100 MG CAPSULE PO SCH ×3 (09:18→21:11)
[2016-08-31] MEDS: cloNIDine HCL 0.1 MG TABLET PO SCH ×2 (09:19→21:10)
[2016-08-31] MEDS: DIPHENHYDRAMINE HCL 50 MG CAPSULE PO SCH ×3 (09:19→21:00)
[2016-08-31] MEDS: CARISOPRODOL 350 MG TABLET PO SCH ×4 (09:20→21:12)
[2016-08-31] MEDS: BACLOFEN 10 MG TABLET PO SCH ×3 (09:20→21:09)
[2016-08-31] MEDS ORDERED: CEFEPIME 1 GM in D5W 50 ML IV ONE (09:30)
[2016-08-31] MEDS ORDERED: ENOXAPARIN SODIUM 40 MG/0.4 ML SYRINGE SUBCUT ONE (15:30)
[2016-08-31] MEDS: LORazepam 2 MG/ML VIAL IVP PRN ×2 (15:52→20:38)
[2016-08-31] MEDS: CEFEPIME 1 GM in D5W 50 ML IV SCH (21:07)
[2016-08-31] MEDS: VANCOMYCIN HCL 1,500 MG in NS 250 ML IV SCH (21:08)
[2016-09-01 00:25] VITALS: BP_SYST 104
[2016-09-01] MEDS: LevALBUTEROL HCL 1.25 MG/0.5 ML *CONC.* VIAL.NEB (XOPENEX CONC.) INH SCH ×4 (01:00→19:30)
[2016-09-01] MEDS: MORPHINE 4 MG/ML INJ. SYRINGE IVP PRN ×7 (02:28→22:29)
[2016-09-01] MEDS: DIPHENHYDRAMINE INJ 50 MG/ML VIAL IVP PRN (04:11)
[2016-09-01] MEDS: LORazepam 2 MG/ML VIAL IVP PRN ×3 (04:12→15:31)
[2016-09-01 04:21] VITALS: BP_SYST 101
[2016-09-01 06:31] LABS: BASOPHILS % (AUTO) 0.3 % (0.0-2.0); EOSINOPHILS # (AUTO) 0.3 K/uL (0.0-0.4); EOSINOPHILS % (AUTO) 5.3 % (0.0-4.0); HEMATOCRIT 31.3 % (36-54); HEMOGLOBIN 10.4 g/dL (14.0-18.0); LYMPHOCYTES # (AUTO) 1.3 K/uL (1.0-5.5); LYMPHOCYTES % (AUTO) 20.5 % (20.5-51.5); MEAN CORPUSCULAR HEMOGLOBIN 27 pg (27-31); MEAN CORPUSCULAR HGB CONC 33 % (32-36); MEAN CORPUSCULAR VOLUME 82 fL (79.0-98.0); MONOCYTES # (AUTO) 0.8 K/uL (0.0-1.0); NEUTROPHILS # (AUTO) 3.8 K/uL (1.8-7.7); NEUTROPHILS % (AUTO) 60.9 % (40.0-70.0); PLATELET COUNT (AUTO) 154 K/uL (130-430); RED BLOOD CELL COUNT(AUTO) 3.83 MIL/uL (4.2-6.2); RED CELL DISTRIBUTION WIDTH 18.8 % (9.0-15.0); WHITE BLOOD COUNT (AUTO) 6.2 K/uL (4.8-10.8)
[2016-09-01 06:42] LABS: ALBUMIN 2.9 g/dL (3.4-4.8); CALCIUM 8.5 mg/dL (8.4-11.0); CREATININE 0.81 mg/dL (0.55-1.30); POTASSIUM 3.4 mmol/L (3.5-5.1); TOTAL BILIRUBIN 0.6 mg/dL (0.0-1.0); TOTAL PROTEIN, SERUM 7.8 g/dL (6.4-8.3)
[2016-09-01 08:00] VITALS: BP_SYST 100
[2016-09-01] MEDS: BACLOFEN 10 MG TABLET PO SCH ×3 (10:29→20:39)
[2016-09-01] MEDS: levETIRAcetam 500 MG TABLET PO SCH ×2 (10:29→20:38)
[2016-09-01] MEDS: ENOXAPARIN SODIUM 40 MG/0.4 ML SYRINGE SUBCUT SCH (10:29)
[2016-09-01] MEDS: VANCOMYCIN HCL 1,500 MG in NS 250 ML IV SCH ×2 (10:29→21:47)
[2016-09-01] MEDS: cloNIDine HCL 0.1 MG TABLET PO SCH ×2 (10:30→20:39)
[2016-09-01] MEDS: GABAPENTIN 100 MG CAPSULE PO SCH ×3 (10:30→20:39)
[2016-09-01] MEDS: DIPHENHYDRAMINE HCL 50 MG CAPSULE PO SCH ×3 (10:30→20:38)
[2016-09-01] MEDS: CARISOPRODOL 350 MG TABLET PO SCH ×4 (10:31→20:40)
[2016-09-01] MEDS: CEFEPIME 1 GM in D5W 50 ML IV SCH ×2 (11:24→20:38)
[2016-09-01 12:36] VITALS: BP_SYST 111
[2016-09-01 16:05] VITALS: BP_SYST 115
[2016-09-01 19:50] VITALS: BP_SYST 117
[2016-09-01] MEDS: ACETAMINOPHEN 325 MG TABLET PO PRN (20:03)
[2016-09-01] MEDS: HYDROcodone/ACETAMIN 10-325 MG TAB PO PRN (20:39)
[2016-09-02] VITALS (7 sets, daily range): BP systolic 112–153
[2016-09-02] MEDS: MORPHINE 4 MG/ML INJ. SYRINGE IVP PRN ×9 (00:32→23:06)
[2016-09-02] MEDS: HYDROcodone/ACETAMIN 10-325 MG TAB PO PRN ×5 (00:33→21:03)
[2016-09-02] MEDS: LevALBUTEROL HCL 1.25 MG/0.5 ML *CONC.* VIAL.NEB (XOPENEX CONC.) INH SCH ×4 (01:12→19:36)
[2016-09-02] MEDS: DIPHENHYDRAMINE INJ 50 MG/ML VIAL IVP PRN ×2 (02:13→12:47)
[2016-09-02] MEDS: DIPHENHYDRAMINE HCL 50 MG CAPSULE PO SCH ×3 (09:25→20:48)
[2016-09-02] MEDS: ENOXAPARIN SODIUM 40 MG/0.4 ML SYRINGE SUBCUT SCH (09:25)
[2016-09-02] MEDS: CARISOPRODOL 350 MG TABLET PO SCH ×4 (09:25→20:48)
[2016-09-02] MEDS: GABAPENTIN 100 MG CAPSULE PO SCH ×3 (09:25→20:48)
[2016-09-02] MEDS: cloNIDine HCL 0.1 MG TABLET PO SCH ×2 (09:26→20:49)
[2016-09-02] MEDS: levETIRAcetam 500 MG TABLET PO SCH ×2 (09:27→20:48)
[2016-09-02] MEDS: BACLOFEN 10 MG TABLET PO SCH ×3 (09:27→20:48)
[2016-09-02] MEDS: CEFEPIME 1 GM in D5W 50 ML IV SCH ×2 (09:28→20:58)
[2016-09-02] MEDS: VANCOMYCIN HCL 1,500 MG in NS 250 ML IV SCH ×2 (11:02→22:08)
[2016-09-03] VITALS (7 sets, daily range): BP systolic 113–149
[2016-09-03] MEDS: LevALBUTEROL HCL 1.25 MG/0.5 ML *CONC.* VIAL.NEB (XOPENEX CONC.) INH SCH ×4 (01:00→19:36)
[2016-09-03] MEDS: MORPHINE 4 MG/ML INJ. SYRINGE IVP PRN ×10 (01:17→23:14)
[2016-09-03] MEDS: HYDROcodone/ACETAMIN 10-325 MG TAB PO PRN ×4 (03:16→17:40)
[2016-09-03 06:32] LABS: BASOPHILS % (AUTO) 0.6 % (0.0-2.0); EOSINOPHILS # (AUTO) 0.4 K/uL (0.0-0.4); EOSINOPHILS % (AUTO) 5.4 % (0.0-4.0); HEMATOCRIT 28.2 % (36-54); HEMOGLOBIN 9.3 g/dL (14.0-18.0); LYMPHOCYTES # (AUTO) 1.1 K/uL (1.0-5.5); LYMPHOCYTES % (AUTO) 14.9 % (20.5-51.5); MEAN CORPUSCULAR HEMOGLOBIN 27 pg (27-31); MEAN CORPUSCULAR HGB CONC 33 % (32-36); MEAN CORPUSCULAR VOLUME 82 fL (79.0-98.0); MONOCYTES # (AUTO) 0.6 K/uL (0.0-1.0); MONOCYTES % (AUTO) 8.3 % (1.7-9.3); NEUTROPHILS # (AUTO) 5.1 K/uL (1.8-7.7); NEUTROPHILS % (AUTO) 70.8 % (40.0-70.0); PLATELET COUNT (AUTO) 209 K/uL (130-430); RED BLOOD CELL COUNT(AUTO) 3.44 MIL/uL (4.2-6.2); RED CELL DISTRIBUTION WIDTH 19.1 % (9.0-15.0); WHITE BLOOD COUNT (AUTO) 7.2 K/uL (4.8-10.8)
[2016-09-03 06:38] LABS: CALCIUM 8.5 mg/dL (8.4-11.0); CREATININE 0.88 mg/dL (0.55-1.30); POTASSIUM 3.3 mmol/L (3.5-5.1)
[2016-09-03] MEDS: levETIRAcetam 500 MG TABLET PO SCH ×2 (09:32→21:45)
[2016-09-03] MEDS: cloNIDine HCL 0.1 MG TABLET PO SCH ×2 (09:32→21:45)
[2016-09-03] MEDS: CARISOPRODOL 350 MG TABLET PO SCH ×4 (09:32→21:44)
[2016-09-03] MEDS: BACLOFEN 10 MG TABLET PO SCH ×3 (09:33→21:45)
[2016-09-03] MEDS: ENOXAPARIN SODIUM 40 MG/0.4 ML SYRINGE SUBCUT SCH (09:33)
[2016-09-03] MEDS: GABAPENTIN 100 MG CAPSULE PO SCH ×3 (09:33→21:44)
[2016-09-03] MEDS: DIPHENHYDRAMINE HCL 50 MG CAPSULE PO SCH ×3 (10:01→21:00)
[2016-09-03] MEDS: CEFEPIME 1 GM in D5W 50 ML IV SCH ×2 (10:01→21:44)
[2016-09-03] MEDS: VANCOMYCIN HCL 1,500 MG in NS 250 ML IV SCH ×2 (10:30→23:15)
[2016-09-03] MEDS: POTASSIUM CHLORIDE 20 MEQ TAB.PRT.SR PO SCH (21:44)
[2016-09-04] MEDS: LevALBUTEROL HCL 1.25 MG/0.5 ML *CONC.* VIAL.NEB (XOPENEX CONC.) INH SCH ×4 (00:05→19:40)
[2016-09-04 00:58] VITALS: BP_SYST 119
[2016-09-04] MEDS: MORPHINE 4 MG/ML INJ. SYRINGE IVP PRN ×8 (01:53→20:42)
[2016-09-04] MEDS: DIPHENHYDRAMINE INJ 50 MG/ML VIAL IVP PRN (02:59)
[2016-09-04 03:15] VITALS: BP_SYST 140
[2016-09-04 08:00] VITALS: BP_SYST 140
[2016-09-04] MEDS: CEFEPIME 1 GM in D5W 50 ML IV SCH ×2 (08:13→21:00)
[2016-09-04] MEDS: levETIRAcetam 500 MG TABLET PO SCH ×2 (10:18→22:24)
[2016-09-04] MEDS: GABAPENTIN 100 MG CAPSULE PO SCH ×3 (10:18→22:24)
[2016-09-04] MEDS: ENOXAPARIN SODIUM 40 MG/0.4 ML SYRINGE SUBCUT SCH (10:19)
[2016-09-04] MEDS: BACLOFEN 10 MG TABLET PO SCH ×3 (10:19→22:24)
[2016-09-04] MEDS: DIPHENHYDRAMINE HCL 50 MG CAPSULE PO SCH ×3 (10:19→22:24)
[2016-09-04] MEDS: POTASSIUM CHLORIDE 20 MEQ TAB.PRT.SR PO SCH ×2 (10:19→22:24)
[2016-09-04] MEDS: cloNIDine HCL 0.1 MG TABLET PO SCH ×2 (10:20→22:24)
[2016-09-04] MEDS: CARISOPRODOL 350 MG TABLET PO SCH ×4 (10:20→22:24)
[2016-09-04] MEDS: VANCOMYCIN HCL 1,500 MG in NS 250 ML IV SCH ×3 (10:22→21:00)
[2016-09-04 12:27] VITALS: BP_SYST 116
[2016-09-04 13:05] LABS: BASOPHILS % (AUTO) 0.5 % (0.0-2.0); EOSINOPHILS # (AUTO) 0.7 K/uL (0.0-0.4); EOSINOPHILS % (AUTO) 7.1 % (0.0-4.0); HEMATOCRIT 34.5 % (36-54); HEMOGLOBIN 11.3 g/dL (14.0-18.0); LYMPHOCYTES # (AUTO) 1.5 K/uL (1.0-5.5); LYMPHOCYTES % (AUTO) 15.7 % (20.5-51.5); MEAN CORPUSCULAR HEMOGLOBIN 27 pg (27-31); MEAN CORPUSCULAR HGB CONC 33 % (32-36); MEAN CORPUSCULAR VOLUME 83 fL (79.0-98.0); MONOCYTES # (AUTO) 0.4 K/uL (0.0-1.0); MONOCYTES % (AUTO) 4.4 % (1.7-9.3); NEUTROPHILS # (AUTO) 6.9 K/uL (1.8-7.7); NEUTROPHILS % (AUTO) 72.3 % (40.0-70.0); PLATELET COUNT (AUTO) 329 K/uL (130-430); RED BLOOD CELL COUNT(AUTO) 4.17 MIL/uL (4.2-6.2); RED CELL DISTRIBUTION WIDTH 19.2 % (9.0-15.0)
[2016-09-04 13:07] LABS: WHITE BLOOD COUNT (AUTO) 9.5 K/uL (4.8-10.8)
[2016-09-04 13:16] LABS: CALCIUM 8.9 mg/dL (8.4-11.0); CREATININE 0.83 mg/dL (0.55-1.30); POTASSIUM 4.2 mmol/L (3.5-5.1)
[2016-09-04 13:35] LABS: BLOOD GAS PH 7.436 (7.350-7.450)
[2016-09-04 13:36] LABS: ABG TOTAL HEMOGLOBIN 10.8 G/dL (12.0-18.0); BLOOD GAS BASE EXCESS -0.4 mmol/L (-3.0-3.0); BLOOD GAS COHb% 0.5 % (0.5-1.5); BLOOD GAS HHB 15.7 % (0.0-6.0); BLOOD O2Hb% 83.7 % (94.0-97.0)
[2016-09-04 16:00] VITALS: BP_SYST 118
[2016-09-04 20:37] VITALS: BP_SYST 127
[2016-09-04] MEDS ORDERED: NITROFURANTOIN MONOHYD/M-CRYST 100 MG CAPSULE PO ONE (22:45)
[2016-09-05] MEDS: MORPHINE 4 MG/ML INJ. SYRINGE IVP PRN ×6 (00:09→16:07)
[2016-09-05 00:53] VITALS: BP_SYST 132
[2016-09-05] MEDS: LevALBUTEROL HCL 1.25 MG/0.5 ML *CONC.* VIAL.NEB (XOPENEX CONC.) INH SCH ×4 (01:00→19:40)
[2016-09-05 04:13] VITALS: BP_SYST 128
[2016-09-05 08:58] VITALS: BP_SYST 119
[2016-09-05] MEDS: CEFEPIME 1 GM in D5W 50 ML IV SCH (09:00)
[2016-09-05] MEDS: VANCOMYCIN HCL 1,500 MG in NS 250 ML IV SCH (09:00)
[2016-09-05] MEDS: BACLOFEN 10 MG TABLET PO SCH ×3 (09:52→20:24)
[2016-09-05] MEDS: HYDROcodone/ACETAMIN 10-325 MG TAB PO PRN (09:53)
[2016-09-05] MEDS: NITROFURANTOIN MONOHYD/M-CRYST 100 MG CAPSULE PO SCH ×2 (09:53→20:23)
[2016-09-05] MEDS: GABAPENTIN 100 MG CAPSULE PO SCH ×3 (09:53→20:24)
[2016-09-05] MEDS: levETIRAcetam 500 MG TABLET PO SCH ×2 (09:54→20:24)
[2016-09-05] MEDS: cloNIDine HCL 0.1 MG TABLET PO SCH (09:54)
[2016-09-05] MEDS: ENOXAPARIN SODIUM 40 MG/0.4 ML SYRINGE SUBCUT SCH (09:54)
[2016-09-05] MEDS: POTASSIUM CHLORIDE 20 MEQ TAB.PRT.SR PO SCH ×2 (09:54→20:24)
[2016-09-05] MEDS: CARISOPRODOL 350 MG TABLET PO SCH ×4 (09:54→20:24)
[2016-09-05] MEDS: DIPHENHYDRAMINE HCL 50 MG CAPSULE PO SCH ×2 (09:54→16:04)
[2016-09-05 12:42] VITALS: BP_SYST 120
[2016-09-05 16:34] VITALS: BP_SYST 94
[2016-09-05] MEDS ORDERED: PREDNISONE 20 MG TABLET PO ONE (19:00)
[2016-09-05] MEDS: OXYCODONE/ACETAMINOPHEN 5-325 TABLET PO PRN (19:03)
[2016-09-05 20:15] VITALS: BP_SYST 109
[2016-09-06] VITALS (7 sets, daily range): BP systolic 108–144
[2016-09-06] MEDS: LevALBUTEROL HCL 1.25 MG/0.5 ML *CONC.* VIAL.NEB (XOPENEX CONC.) INH SCH ×4 (01:00→20:12)
[2016-09-06] MEDS: OXYCODONE/ACETAMINOPHEN 5-325 TABLET PO PRN ×5 (02:48→22:49)
[2016-09-06] MEDS: NITROFURANTOIN MONOHYD/M-CRYST 100 MG CAPSULE PO SCH ×2 (08:14→21:23)
[2016-09-06] MEDS: BACLOFEN 10 MG TABLET PO SCH ×3 (08:14→21:23)
[2016-09-06] MEDS: GABAPENTIN 100 MG CAPSULE PO SCH ×3 (08:14→21:23)
[2016-09-06] MEDS: CARISOPRODOL 350 MG TABLET PO SCH ×4 (08:14→21:23)
[2016-09-06] MEDS: CHOLECALCIFEROL (VITAMIN D3) 2,000 UNIT TABLET PO SCH (08:14)
[2016-09-06] MEDS: levETIRAcetam 500 MG TABLET PO SCH ×2 (08:14→21:23)
[2016-09-06] MEDS: PREDNISONE 20 MG TABLET PO SCH ×2 (08:15→21:23)
[2016-09-06] MEDS: ENOXAPARIN SODIUM 40 MG/0.4 ML SYRINGE SUBCUT SCH (08:15)
[2016-09-06] MEDS: POTASSIUM CHLORIDE 20 MEQ TAB.PRT.SR PO SCH ×2 (08:15→21:23)
[2016-09-06] MEDS: MORPHINE 4 MG/ML INJ. SYRINGE IVP PRN ×3 (10:58→21:29)
[2016-09-06] MEDS: AMPICILLIN SODIUM/SULBACTAM NA 3 GM in NS 100 ML IV SCH ×3 (12:00→22:53)
[2016-09-06] MEDS: PIPERACILLIN/TAZO 3.375/DEX-IS 50 ML IV SCH ×3 (12:47→22:52)
[2016-09-06 20:08] LABS: INR 1.1 (0.80-1.20); PROTHROMBIN TIME 11.4 SECS (9.5-12.5)
[2016-09-06] MEDS ORDERED: LORazepam 1 MG TABLET PO PRN (22:30)
[2016-09-06 22:34] LABS: BLOOD GAS PH 7.419 (7.350-7.450)
[2016-09-06 22:35] LABS: ABG TOTAL HEMOGLOBIN 11.5 G/dL (12.0-18.0); BLOOD GAS COHb% 0.3 % (0.5-1.5); BLOOD GAS HHB 12.8 % (0.0-6.0); BLOOD O2Hb% 86.7 % (94.0-97.0)
[2016-09-07] VITALS (13 sets, daily range): BP systolic 2–132
[2016-09-07] MEDS: LevALBUTEROL HCL 1.25 MG/0.5 ML *CONC.* VIAL.NEB (XOPENEX CONC.) INH SCH ×4 (01:00→19:00)
[2016-09-07] MEDS: MORPHINE 4 MG/ML INJ. SYRINGE IVP PRN ×4 (01:17→13:20)
[2016-09-07] MEDS: OXYCODONE/ACETAMINOPHEN 5-325 TABLET PO PRN ×4 (03:25→20:33)
[2016-09-07] MEDS: AMPICILLIN SODIUM/SULBACTAM NA 3 GM in NS 100 ML IV SCH ×4 (05:12→23:57)
[2016-09-07] MEDS: PIPERACILLIN/TAZO 3.375/DEX-IS 50 ML IV SCH ×2 (05:12→11:37)
[2016-09-07] MEDS: ENOXAPARIN SODIUM 40 MG/0.4 ML SYRINGE SUBCUT SCH (09:04)
[2016-09-07] MEDS: levETIRAcetam 500 MG TABLET PO SCH ×2 (09:04→21:02)
[2016-09-07] MEDS: GABAPENTIN 100 MG CAPSULE PO SCH ×2 (09:04→14:05)
[2016-09-07] MEDS: POTASSIUM CHLORIDE 20 MEQ TAB.PRT.SR PO SCH ×2 (09:04→21:02)
[2016-09-07] MEDS: CARISOPRODOL 350 MG TABLET PO SCH ×4 (09:04→22:02)
[2016-09-07] MEDS: BACLOFEN 10 MG TABLET PO SCH ×3 (09:04→21:02)
[2016-09-07] MEDS: PREDNISONE 20 MG TABLET PO SCH ×2 (09:04→21:03)
[2016-09-07] MEDS: NITROFURANTOIN MONOHYD/M-CRYST 100 MG CAPSULE PO SCH ×2 (09:14→21:24)
[2016-09-07] MEDS: GABAPENTIN 400 MG CAPSULE PO SCH ×2 (15:00→21:04)
[2016-09-07 15:47] LABS: BLOOD GAS PH 7.394 (7.350-7.450)
[2016-09-07 15:48] LABS: ABG TOTAL HEMOGLOBIN 11.9 G/dL (12.0-18.0); BLOOD GAS BASE EXCESS -3.1 mmol/L (-3.0-3.0); BLOOD GAS COHb% 0.3 % (0.5-1.5); BLOOD GAS HHB 6.6 % (0.0-6.0)
[2016-09-07 17:14] LABS: BILIRUBIN,URINE NEGATIVE (NEGATIVE); BLOOD, URINE NEGATIVE (NEGATIVE); CLARITY/URINE CLEAR (CLEAR); COLOR,URINE YELLOW (YELLOW); GLUCOSE,URINE NEGATIVE (NEGATIVE); KETONES,URINE NEGATIVE (NEGATIVE); LEUKOCYTE ESTERASE ,URINE NEGATIVE (NEGATIVE); NITRITE, URINE NEGATIVE (NEGATIVE); PROTEIN URINE NEGATIVE (NEGATIVE); UROBILINOGEN,URINE 0.2 (0.2-1.0)
[2016-09-07 17:25] LABS: BARBITURATE, URINE NEGATIVE (NEG <=200); BENZODIAZEPINE, URINE POSITIVE (NEG <=150); CANNABINOID, URINE NEGATIVE (NEG <=50); COCAINE, URINE NEGATIVE (NEG <=150); METHAMPHETAMINES SCREEN,URINE NEGATIVE (NEG <=500); OPIATE, URINE POSITIVE (NEG <=100); PHENCYCLIDINE SCREEN,URINE NEGATIVE (NEG <=25); UR TRICYCLIC ANTIDEPRESSANTS NEGATIVE (NEG <=300); URINE AMPHETAMINE NEGATIVE (NEG <=500); URINE METHADONE NEGATIVE (NEG <=200); URINE OXYCODONE SCREEN POSITIVE (NEG <=100); URINE PROPOXYPHENE SCREEN NEGATIVE (NEG <=300)
[2016-09-07] MEDS ORDERED: NITROFURANTOIN MONOHYD/M-CRYST 100 MG CAPSULE PO ONE (21:27)
[2016-09-07] MEDS: LORazepam 2 MG/ML VIAL IVP PRN (22:34)
[2016-09-08] VITALS (14 sets, daily range): BP systolic 111–138
[2016-09-08] MEDS: LevALBUTEROL HCL 1.25 MG/0.5 ML *CONC.* VIAL.NEB (XOPENEX CONC.) INH SCH ×3 (01:00→13:14)
[2016-09-08] MEDS: OXYCODONE/ACETAMINOPHEN 5-325 TABLET PO PRN ×2 (04:50→09:46)
[2016-09-08] MEDS: AMPICILLIN SODIUM/SULBACTAM NA 3 GM in NS 100 ML IV SCH ×2 (05:46→12:15)
[2016-09-08] MEDS: LORazepam 2 MG/ML VIAL IVP PRN (06:34)
[2016-09-08] MEDS: PREDNISONE 20 MG TABLET PO SCH (09:45)
[2016-09-08] MEDS: NITROFURANTOIN MONOHYD/M-CRYST 100 MG CAPSULE PO SCH (09:45)
[2016-09-08] MEDS: BACLOFEN 10 MG TABLET PO SCH (09:45)
[2016-09-08] MEDS: levETIRAcetam 500 MG TABLET PO SCH (09:45)
[2016-09-08] MEDS: CARISOPRODOL 350 MG TABLET PO SCH ×2 (09:46→13:15)
[2016-09-08] MEDS: POTASSIUM CHLORIDE 20 MEQ TAB.PRT.SR PO SCH (09:46)
[2016-09-08] MEDS: GABAPENTIN 400 MG CAPSULE PO SCH (09:46)
[2016-09-08] MEDS: ENOXAPARIN SODIUM 40 MG/0.4 ML SYRINGE SUBCUT SCH (09:47)
== END 2016-09-08 16:00 | disposition home or self-care (01) | DRG 466 ==
LOC: SED 19:45 → SMU 22:49 → STU 08-28 16:00 → SMU 08-29 15:35 → SIC 09-07 18:24
PROVIDERS: ADMIT Internal Medicine; ATTEND Internal Medicine
DX: T83.091A Other mechanical complication of indwelling urethral catheter, initial encounter (principal); J96.21 Acute and chronic respiratory failure with hypoxia; A41.9 Sepsis, unspecified organism; J18.9 Pneumonia, unspecified organism; I80.8 Phlebitis and thrombophlebitis of other sites; E87.1 Hypo-osmolality and hyponatremia; F11.20 Opioid dependence, uncomplicated; T85.193A Other mechanical complication of implanted electronic neurostimulator, generator, initial encounter; N39.0 Urinary tract infection, site not specified; L03.113 Cellulitis of right upper limb; Y83.8 Other surgical procedures as the cause of abnormal reaction of the patient, or of later complication, without mention of misadventure at the time of the procedure; Y84.6 Urinary catheterization as the cause of abnormal reaction of the patient, or of later complication, without mention of misadventure at the time of the procedure; I10 Essential (primary) hypertension; N31.9 Neuromuscular dysfunction of bladder, unspecified; N40.1 Benign prostatic hyperplasia with lower urinary tract symptoms; K44.9 Diaphragmatic hernia without obstruction or gangrene; G47.33 Obstructive sleep apnea (adult) (pediatric); R33.8 Other retention of urine; B96.20 Unspecified Escherichia coli [E. coli] as the cause of diseases classified elsewhere; H53.2 Diplopia; I51.7 Cardiomegaly; N13.9 Obstructive and reflux uropathy, unspecified; E11.9 Type 2 diabetes mellitus without complications; R00.1 Bradycardia, unspecified; H35.30 Unspecified macular degeneration; G40.909 Epilepsy, unspecified, not intractable, without status epilepticus; I25.10 Atherosclerotic heart disease of native coronary artery without angina pectoris; G89.4 Chronic pain syndrome; H54.41 Blindness, right eye, normal vision left eye; M45.9 Ankylosing spondylitis of unspecified sites in spine; E66.9 Obesity, unspecified; Z68.30 Body mass index [BMI] 30.0-30.9, adult; Y92.89 Other specified places as the place of occurrence of the external cause; Y93.89 Activity, other specified; Y99.8 Other external cause status; Z79.899 Other long term (current) drug therapy; Z87.442 Personal history of urinary calculi; Z87.11 Personal history of peptic ulcer disease; Z95.0 Presence of cardiac pacemaker; Z88.1 Allergy status to other antibiotic agents
CPT/HCPCS: 36415; 36600; 70450-TC; 70496; 70498; 71010; 71275; 80048; 80053; 80202-TC; 80307; 81000-TC; 81003; 82803-TC; 82962; 83735-TC; 85025; 85610-TC; 85730-TC; 87040-TC; 87081; 87086; 87186-TC; 93005; 93971; 94640; 94760; 96365; 96368; 97110-GP; 97116-GP; 97530-GP; 99285; C1751; C1769; J0295; J0692; J0696; J1200; J1650; J1815; J1885; J1953; J1956; J2060; J2270; J2543; J3370; J7030; J7050; J7060; J7512; Q0163; Q9967

== ENCOUNTER 2016-10-08 21:54 | Inpatient (IN) | payer MEDICAID ==
[~2016-10-08] VITALS: Ht 167.6 cm; Wt 85.9 kg
[2016-10-08 21:54] VITALS: BP_SYST 175
[~2016-10-08 21:54] MED LIST changes: -CIPR500S3 PO
[2016-10-08 22:52] LABS: BASOPHILS # (AUTO) 0.3 K/uL (0.0-0.2); BASOPHILS % (AUTO) 3.3 % (0.0-2.0); EOSINOPHILS # (AUTO) 0.2 K/uL (0.0-0.4); EOSINOPHILS % (AUTO) 2.8 % (0.0-4.0); HEMATOCRIT 34.4 % (36-54); HEMOGLOBIN 11.5 g/dL (14.0-18.0); LYMPHOCYTES # (AUTO) 1.4 K/uL (1.0-5.5); LYMPHOCYTES % (AUTO) 17.1 % (20.5-51.5); MEAN CORPUSCULAR HEMOGLOBIN 28 pg (27-31); MEAN CORPUSCULAR HGB CONC 33 % (32-36); MEAN CORPUSCULAR VOLUME 83 fL (79.0-98.0); MONOCYTES # (AUTO) 0.5 K/uL (0.0-1.0); MONOCYTES % (AUTO) 6.1 % (1.7-9.3); NEUTROPHILS # (AUTO) 5.8 K/uL (1.8-7.7); NEUTROPHILS % (AUTO) 70.7 % (40.0-70.0); PLATELET COUNT (AUTO) 268 K/uL (130-430); RED BLOOD CELL COUNT(AUTO) 4.13 MIL/uL (4.2-6.2); RED CELL DISTRIBUTION WIDTH 15.4 % (9.0-15.0); WHITE BLOOD COUNT (AUTO) 8.2 K/uL (4.8-10.8)
[2016-10-08 22:57] LABS: CALCIUM 9.1 mg/dL (8.4-11.0); CREATININE 0.95 mg/dL (0.55-1.30); POTASSIUM 3.2 mmol/L (3.5-5.1)
[2016-10-08 23:02] LABS: ALBUMIN 3.7 g/dL (3.4-4.8); TOTAL BILIRUBIN 0.6 mg/dL (0.0-1.0); TOTAL PROTEIN, SERUM 8.3 g/dL (6.4-8.3)
[2016-10-09] MEDS ORDERED: HYDROmorphone 1 MG INJ. 1 MG/ML AMPUL IVP ONE (00:45)
[2016-10-09] MEDS ORDERED: HYDROmorphone 2 MG/ML VIAL IM ONE (00:45)
[2016-10-09 00:59] LABS: INR 1.1 (0.80-1.20); PROTHROMBIN TIME 11.4 SECS (9.5-12.5)
[2016-10-09 01:07] LABS: BILIRUBIN,URINE NEGATIVE (NEGATIVE); CLARITY/URINE CLEAR (CLEAR); COLOR,URINE YELLOW (YELLOW); GLUCOSE,URINE NEGATIVE (NEGATIVE); KETONES,URINE TRACE (NEGATIVE); LEUKOCYTE ESTERASE ,URINE NEGATIVE (NEGATIVE); NITRITE, URINE NEGATIVE (NEGATIVE); PROTEIN URINE NEGATIVE (NEGATIVE); UROBILINOGEN,URINE 0.2 (0.2-1.0)
[2016-10-09 01:13] LABS: BLOOD, URINE TRACE (NEGATIVE)
[2016-10-09] MEDS ORDERED: cloNIDine HCL 0.1 MG TABLET PO ONE (01:15)
[2016-10-09 01:22] LABS: RBC,URINE 0-3 /HPF (0-3); WBC,URINE 0-3 /HPF (0-3)
[2016-10-09 01:23] LABS: BACTERIA,URINE FEW /HPF (None Seen)
[2016-10-09] MEDS ORDERED: NITROGLYCERIN 1 INCH (GM) OINT. TP ONE (02:00)
[2016-10-09] MEDS ORDERED: FUROSEMIDE 40 MG/4 ML VIAL IVP ONE ×2 (02:00→21:15)
[2016-10-09] MEDS ORDERED: POTASSIUM CHLORIDE 10 MEQ TAB.PRT.SR PO ONE (02:00)
[2016-10-09] MEDS ORDERED: traMADol HCL HCL 50 MG TABLET (ULTRAM) PO PRN (02:45)
[2016-10-09 03:41] VITALS: BP_SYST 142
[2016-10-09 08:00] VITALS: BP_SYST 134
[2016-10-09 12:10] VITALS: BP_SYST 149
[2016-10-09] MEDS ORDERED: POTASSIUM CHLORIDE 20 MEQ TAB.PRT.SR PO ONE ×2 (16:15)
[2016-10-09] MEDS ORDERED: ENOXAPARIN SODIUM 80 MG/0.8 ML SYRINGE SUBCUT ONE (16:15)
[2016-10-09 16:40] VITALS: BP_SYST 142
[2016-10-09 16:55] LABS: ABG TOTAL HEMOGLOBIN 12.1 G/dL (12.0-18.0); BLOOD GAS BASE EXCESS 3.1 mmol/L (-3.0-3.0); BLOOD GAS COHb% 0.7 % (0.5-1.5); BLOOD GAS PH 7.483 (7.350-7.450); BLOOD O2Hb% 93.3 % (94.0-97.0)
[2016-10-09] MEDS ORDERED: ONDANSETRON HCL 4 MG/2 ML VIAL IVP PRN (17:30)
[2016-10-09 18:05] LABS: BARBITURATE, URINE NEGATIVE (NEG <=200); METHAMPHETAMINES SCREEN,URINE NEGATIVE (NEG <=500); URINE AMPHETAMINE NEGATIVE (NEG <=500); URINE METHADONE NEGATIVE (NEG <=200)
[2016-10-09 18:06] LABS: BENZODIAZEPINE, URINE POSITIVE (NEG <=150); CANNABINOID, URINE NEGATIVE (NEG <=50); COCAINE, URINE NEGATIVE (NEG <=150); OPIATE, URINE POSITIVE (NEG <=100); PHENCYCLIDINE SCREEN,URINE NEGATIVE (NEG <=25)
[2016-10-09 18:07] LABS: UR TRICYCLIC ANTIDEPRESSANTS NEGATIVE (NEG <=300); URINE OXYCODONE SCREEN POSITIVE (NEG <=100); URINE PROPOXYPHENE SCREEN NEGATIVE (NEG <=300)
[2016-10-09] MEDS: levETIRAcetam 500 MG TABLET PO SCH (18:09)
[2016-10-09] MEDS: OXYCODONE/ACETAMINOPHEN 5-325 TABLET PO PRN (18:09)
[2016-10-09] MEDS ORDERED: LEVO500T20 PO (18:27)
[2016-10-09] MEDS ORDERED: DIVA500T7 PO (18:27)
[2016-10-09] MEDS ORDERED: LISI-209 PO (19:55)
[2016-10-09] MEDS ORDERED: ARTT OP (19:55)
[2016-10-09 20:00] VITALS: BP_SYST 137
[2016-10-09] MEDS ORDERED: ENOXAPARIN SODIUM 80 MG/0.8 ML SYRINGE SUBCUT SCH (21:00)
[2016-10-09] MEDS ORDERED: POTASSIUM CHLORIDE 20 MEQ/PKT PACKET PO ONE (21:15)
[2016-10-09] MEDS: GABAPENTIN 100 MG CAPSULE PO SCH (22:02)
[2016-10-09] MEDS: DIVALPROEX SODIUM 500 MG TABLET( DEPAKOTE) PO SCH (22:02)
[2016-10-09] MEDS: cloNIDine HCL 0.1 MG TABLET PO SCH (22:03)
[2016-10-09 23:57] VITALS: BP_SYST 137
[2016-10-10 01:13] VITALS: BP_SYST 111
[2016-10-10] MEDS ORDERED: ENOXAPARIN SODIUM 80 MG/0.8 ML SYRINGE SUBCUT SCH (04:00)
[2016-10-10] MEDS: OXYCODONE/ACETAMINOPHEN 5-325 TABLET PO PRN ×2 (04:39→10:13)
[2016-10-10 05:54] VITALS: BP_SYST 121
[2016-10-10] MEDS: levETIRAcetam 500 MG TABLET PO SCH ×2 (06:33→17:37)
[2016-10-10 06:51] LABS: BASOPHILS % (AUTO) 0.3 % (0.0-2.0); EOSINOPHILS # (AUTO) 0.1 K/uL (0.0-0.4); EOSINOPHILS % (AUTO) 2.3 % (0.0-4.0); HEMATOCRIT 38.8 % (36-54); HEMOGLOBIN 12.8 g/dL (14.0-18.0); LYMPHOCYTES # (AUTO) 1.8 K/uL (1.0-5.5); LYMPHOCYTES % (AUTO) 29.1 % (20.5-51.5); MEAN CORPUSCULAR HEMOGLOBIN 28 pg (27-31); MEAN CORPUSCULAR HGB CONC 33 % (32-36); MEAN CORPUSCULAR VOLUME 84 fL (79.0-98.0); MONOCYTES # (AUTO) 0.5 K/uL (0.0-1.0); MONOCYTES % (AUTO) 8.6 % (1.7-9.3); NEUTROPHILS # (AUTO) 3.6 K/uL (1.8-7.7); NEUTROPHILS % (AUTO) 59.7 % (40.0-70.0); PLATELET COUNT (AUTO) 447 K/uL (130-430); RED BLOOD CELL COUNT(AUTO) 4.64 MIL/uL (4.2-6.2); RED CELL DISTRIBUTION WIDTH 15.2 % (9.0-15.0)
[2016-10-10 07:15] LABS: ALBUMIN 3.6 g/dL (3.4-4.8); CALCIUM 8.8 mg/dL (8.4-11.0); CREATININE 0.88 mg/dL (0.55-1.30); TOTAL BILIRUBIN 0.8 mg/dL (0.0-1.0); TOTAL PROTEIN, SERUM 8.3 g/dL (6.4-8.3)
[2016-10-10 08:00] VITALS: BP_SYST 127
[2016-10-10] MEDS ORDERED: POTASSIUM CHLORIDE 20 MEQ TAB.PRT.SR PO SCH (09:00)
[2016-10-10] MEDS ORDERED: POTASSIUM CHLORIDE 20 MEQ/PKT PACKET PO SCH (09:00)
[2016-10-10] MEDS: GABAPENTIN 100 MG CAPSULE PO SCH ×4 (09:00→21:08)
[2016-10-10] MEDS ORDERED: FUROSEMIDE 40 MG/4 ML VIAL IVP SCH (09:00)
[2016-10-10] MEDS: amLODIPine BESYLATE 5 MG TABLET PO SCH (09:56)
[2016-10-10] MEDS: cloNIDine HCL 0.1 MG TABLET PO SCH ×2 (10:04→21:09)
[2016-10-10] MEDS: DIVALPROEX SODIUM 500 MG TABLET( DEPAKOTE) PO SCH ×2 (10:05→21:09)
[2016-10-10] MEDS: POTASSIUM CHLORIDE 20 MEQ TAB.PRT.SR PO ONE ×2 (10:15→13:02)
[2016-10-10 12:00] VITALS: BP_SYST 111
[2016-10-10] MEDS ORDERED: OXYCODONE/ACETAMINOPHEN *10*mg/325 mg TABLET PO PRN (12:30)
[2016-10-10 18:27] VITALS: BP_SYST 113
[2016-10-10] MEDS: OXYCODONE/ACETAMINOPHEN *10*mg/325 mg TABLET PO PRN ×2 (18:55→22:58)
[2016-10-10 20:00] VITALS: BP_SYST 108
[2016-10-10] MEDS ORDERED: IOHEXOL 350 mgI/mL, 150 ML INFUS..BTL IV ONE (20:18)
[2016-10-10] MEDS: ENOXAPARIN SODIUM 80 MG/0.8 ML SYRINGE SUBCUT SCH (21:09)
[2016-10-10] MEDS: POTASSIUM CHLORIDE 20 MEQ TAB.PRT.SR PO SCH (21:09)
[2016-10-10] MEDS: FUROSEMIDE 20 MG TABLET PO SCH (22:58)
[2016-10-11 00:57] VITALS: BP_SYST 100
[2016-10-11] MEDS: OXYCODONE/ACETAMINOPHEN *10*mg/325 mg TABLET PO PRN ×3 (02:59→14:13)
[2016-10-11 03:15] VITALS: BP_SYST 98
[2016-10-11] MEDS: levETIRAcetam 500 MG TABLET PO SCH (06:33)
[2016-10-11 07:39] LABS: BASOPHILS % (AUTO) 0.6 % (0.0-2.0); EOSINOPHILS # (AUTO) 0.1 K/uL (0.0-0.4); EOSINOPHILS % (AUTO) 1.6 % (0.0-4.0); LYMPHOCYTES # (AUTO) 2.7 K/uL (1.0-5.5); MEAN CORPUSCULAR HEMOGLOBIN 28 pg (27-31); MEAN CORPUSCULAR HGB CONC 33 % (32-36); MEAN CORPUSCULAR VOLUME 85 fL (79.0-98.0); MONOCYTES # (AUTO) 0.6 K/uL (0.0-1.0); MONOCYTES % (AUTO) 8.6 % (1.7-9.3); NEUTROPHILS # (AUTO) 3.1 K/uL (1.8-7.7); NEUTROPHILS % (AUTO) 47.2 % (40.0-70.0); PLATELET COUNT (AUTO) 474 K/uL (130-430); RED BLOOD CELL COUNT(AUTO) 4.26 MIL/uL (4.2-6.2); RED CELL DISTRIBUTION WIDTH 15.1 % (9.0-15.0); WHITE BLOOD COUNT (AUTO) 6.5 K/uL (4.8-10.8)
[2016-10-11 08:00] VITALS: BP_SYST 113
[2016-10-11 08:17] LABS: ALBUMIN 3.4 g/dL (3.4-4.8); CALCIUM 8.7 mg/dL (8.4-11.0); CREATININE 1.05 mg/dL (0.55-1.30); POTASSIUM 3.7 mmol/L (3.5-5.1); THYROID STIMULATING HORMONE 2.88 uIu/mL (0.34-4.82); TOTAL BILIRUBIN 0.4 mg/dL (0.0-1.0); TOTAL PROTEIN, SERUM 7.8 g/dL (6.4-8.3)
[2016-10-11] MEDS: cloNIDine HCL 0.1 MG TABLET PO SCH (08:20)
[2016-10-11] MEDS: POTASSIUM CHLORIDE 20 MEQ TAB.PRT.SR PO SCH (08:21)
[2016-10-11] MEDS: amLODIPine BESYLATE 5 MG TABLET PO SCH (08:21)
[2016-10-11] MEDS: CARISOPRODOL 350 MG TABLET PO SCH ×2 (08:22→15:45)
[2016-10-11] MEDS: GABAPENTIN 100 MG CAPSULE PO SCH ×2 (08:23→15:45)
[2016-10-11] MEDS: ENOXAPARIN SODIUM 80 MG/0.8 ML SYRINGE SUBCUT SCH (08:24)
[2016-10-11] MEDS: FUROSEMIDE 20 MG TABLET PO SCH (08:39)
[2016-10-11] MEDS ORDERED: CHOLECALCIFEROL (VITAMIN D3) 2,000 UNIT TABLET PO SCH (09:00)
[2016-10-11] MEDS: DIVALPROEX SODIUM 500 MG TABLET( DEPAKOTE) PO SCH (09:34)
[2016-10-11 12:00] VITALS: BP_SYST 90
[2016-10-11 16:42] VITALS: BP_SYST 130
[2016-10-11 17:18] VITALS: BP_SYST 104
[2016-10-12] MEDS ORDERED: FUROSEMIDE 20 MG TABLET PO SCH (09:00)
== END 2016-10-11 17:20 | disposition home health service (06) | DRG 190 ==
LOC: SED 21:54 → STU 10-09 02:42
PROVIDERS: ADMIT Internal Medicine; ATTEND Internal Medicine
DX: I21.3 ST elevation (STEMI) myocardial infarction of unspecified site (principal); J96.01 Acute respiratory failure with hypoxia; I11.0 Hypertensive heart disease with heart failure; I50.9 Heart failure, unspecified; H35.30 Unspecified macular degeneration; H54.0 Blindness, both eyes; R33.9 Retention of urine, unspecified; G40.909 Epilepsy, unspecified, not intractable, without status epilepticus; I10 Essential (primary) hypertension; N40.0 Benign prostatic hyperplasia without lower urinary tract symptoms; E11.9 Type 2 diabetes mellitus without complications; M45.9 Ankylosing spondylitis of unspecified sites in spine; G89.4 Chronic pain syndrome; E66.9 Obesity, unspecified; Z68.30 Body mass index [BMI] 30.0-30.9, adult; Z95.0 Presence of cardiac pacemaker; Z83.6 Family history of other diseases of the respiratory system; Z87.442 Personal history of urinary calculi; Z79.899 Other long term (current) drug therapy; Z88.1 Allergy status to other antibiotic agents; Z87.11 Personal history of peptic ulcer disease; Z87.01 Personal history of pneumonia (recurrent)
CPT/HCPCS: 36415; 36600; 71010; 71275; 80048; 80053; 80307; 81000-TC; 82550-TC; 82803-TC; 83605; 83735-TC; 83880; 84443-TC; 84484; 85025; 85610-TC; 87040-TC; 87081; 93005; 93306; 94010; 94760; 96372; 96374; 99285; J1170; J1650; J1940; Q9967

== ENCOUNTER 2016-11-11 15:57 | Emergency (ER) | payer MEDICAID ==
[~2016-11-11] VITALS: Ht 167.6 cm; Wt 83.9 kg
[2016-11-11 15:57] VITALS: BP_SYST 106
[~2016-11-11 15:57] MED LIST changes: +ARTT OP; +DIVA500T7 PO; -LEVE500T13 PO; +LISI-209 PO
--- NOTE | 2016-11-11 16:00 | NUR ---
Pt report received from ANJELICA Bailon. Pt c/o swelling, discoloration, and pain to LHA x 5 days. LHA and fingers swollen, mottled with purple discoloration, unable to move hand or fingers. Hand and fingers are blanchable, cap refil < 4 sec.
--- NOTE | 2016-11-11 16:00 | NUR ---
BROUGHT IMMEDIATELY BACK TO BED #3 VIA WHEELCHAIR AND PLACED IN BED. REPORT GIVEN TO JUAN RAMON. DR COOPER CALLED TO BEDSIDE FOR EVALUATION
--- NOTE | 2016-11-11 16:05 | NUR ---
Dr. Griffin at bedside for evaluation.
[2016-11-11 16:41] LABS: CALCIUM 9.6 mg/dL (8.4-11.0); CREATININE 1.01 mg/dL (0.55-1.30); POTASSIUM 3.4 mmol/L (3.5-5.1)
[2016-11-11 16:42] LABS: BASOPHILS % (AUTO) 0.2 % (0.0-2.0); EOSINOPHILS # (AUTO) 0.2 K/uL (0.0-0.4); EOSINOPHILS % (AUTO) 1.4 % (0.0-4.0); HEMATOCRIT 35.5 % (36-54); HEMOGLOBIN 11.8 g/dL (14.0-18.0); LYMPHOCYTES % (AUTO) 18.3 % (20.5-51.5); MEAN CORPUSCULAR HEMOGLOBIN 29 pg (27-31); MEAN CORPUSCULAR HGB CONC 33 % (32-36); MEAN CORPUSCULAR VOLUME 86 fL (79.0-98.0); MONOCYTES # (AUTO) 1.2 K/uL (0.0-1.0); MONOCYTES % (AUTO) 10.9 % (1.7-9.3); NEUTROPHILS # (AUTO) 7.4 K/uL (1.8-7.7); NEUTROPHILS % (AUTO) 69.2 % (40.0-70.0); PLATELET COUNT (AUTO) 490 K/uL (130-430); RED BLOOD CELL COUNT(AUTO) 4.14 MIL/uL (4.2-6.2); RED CELL DISTRIBUTION WIDTH 14.9 % (9.0-15.0); WHITE BLOOD COUNT (AUTO) 10.8 K/uL (4.8-10.8)
[2016-11-11 16:45] LABS: PROTHROMBIN TIME 11.1 SECS (9.5-12.5)
[2016-11-11 17:08] LABS: ALBUMIN 3.9 g/dL (3.4-4.8); TOTAL BILIRUBIN 1.3 mg/dL (0.0-1.0)
[2016-11-11 17:12] LABS: CKMB RELATIVE INDEX 0.7 (0.0-2.9); CREATINE KINASE MB 9.1 ng/mL (0-3.6)
[2016-11-11 17:20] LABS: ERYTHROCYTE SEDIMENTATION RATE 45 MM/HR (0-15)
--- NOTE | 2016-11-11 17:55 | NUR ---
Pt to U/S via stretcher.
[2016-11-11] MEDS ORDERED: NACL 0.9% 1,000 ML IV ONE (18:36)
[2016-11-11] MEDS ORDERED: ONDANSETRON HCL 4 MG/2 ML VIAL IVP ONE (18:45)
[2016-11-11] MEDS ORDERED: MORPHINE 4 MG/ML INJ. SYRINGE IVP ONE (18:45)
[2016-11-11 18:49] LABS: AMYLASE 40 U/L (0-100); LIPASE 79 U/L (73-393)
--- NOTE | 2016-11-11 19:14 | NUR ---
Pt returns from U/S. Report given to ANJELICA Justice.
--- NOTE | 2016-11-11 19:20 | NUR ---
Patient resting in bed, at bedside.
--- NOTE | 2016-11-11 20:00 | NUR ---
No adverse reactions noted after medication administration. Will continue to monitor.
--- NOTE | 2016-11-11 21:15 | NUR ---
Patient in no acute distress at this time. W
[2016-11-11] MEDS ORDERED: HYDROmorphone 1 MG INJ. 1 MG/ML AMPUL IVP ONE (22:00)
--- NOTE | 2016-11-11 22:36 | NUR ---
Patient to be transferred to [facility]. Is being transferred due to higher level of care. Receiving facility has accepting physician and available space. ER physician has signed transfer form. Patient or responsible libertarian has agreed to transfer and signed form. Patient belongings inventoried and will be sent with patient. Copy of nursing notes, lab reports, EKG, Physicians Orders and X-rays to be sent with patient. Report called to Nik at receiving facility. Receiving physician is Dr. Moss. [facility] ambulance service has been called for transfer. ETA is 25 minutes.
[2016-11-11 22:39] VITALS: BP_SYST 123
== END 2016-11-11 22:36 | disposition short-term general hospital (02) ==
LOC: SED 15:57
DX: M79.672 Pain in left foot (principal); M79.89 Other specified soft tissue disorders; R79.1 Abnormal coagulation profile; E11.9 Type 2 diabetes mellitus without complications; I10 Essential (primary) hypertension; Z95.0 Presence of cardiac pacemaker; Z88.1 Allergy status to other antibiotic agents; Z79.899 Other long term (current) drug therapy
CPT/HCPCS: 36415; 71010; 73120; 80053; 82150; 82550; 82553; 83690; 84484; 85025; 85610; 85651; 85730; 93005; 93922; 93971; 96361; 96374; 96375; 99285; J1170; J2270; J2405; J7030

== ENCOUNTER 2017-01-10 08:56 | Emergency (ER) | payer MEDICAID ==
[~2017-01-10] VITALS: Ht 167.6 cm; Wt 90.7 kg
[2017-01-10 08:57] VITALS: BP_SYST 148
[2017-01-10] MEDS ORDERED: LACO10SO PO (09:43)
[2017-01-10] MEDS ORDERED: OXYCODONE/ACETAMINOPHEN *10*mg/325 mg TABLET PO ONE (09:45)
[2017-01-10 10:28] LABS: BASOPHILS % (AUTO) 0.4 % (0.0-2.0); EOSINOPHILS % (AUTO) 0.5 % (0.0-4.0); HEMATOCRIT 35.7 % (36-54); HEMOGLOBIN 11.7 g/dL (14.0-18.0); LYMPHOCYTES % (AUTO) 36.4 % (20.5-51.5); MEAN CORPUSCULAR HEMOGLOBIN 26 pg (27-31); MEAN CORPUSCULAR HGB CONC 33 % (32-36); MEAN CORPUSCULAR VOLUME 78 fL (79.0-98.0); MONOCYTES # (AUTO) 0.5 K/uL (0.0-1.0); MONOCYTES % (AUTO) 9.6 % (1.7-9.3); NEUTROPHILS % (AUTO) 53.1 % (40.0-70.0); PLATELET COUNT (AUTO) 422 K/uL (130-430); RED BLOOD CELL COUNT(AUTO) 4.55 MIL/uL (4.2-6.2); RED CELL DISTRIBUTION WIDTH 16.5 % (9.0-15.0); WHITE BLOOD COUNT (AUTO) 5.5 K/uL (4.8-10.8)
[2017-01-10 10:40] LABS: CALCIUM 9.1 mg/dL (8.4-11.0); CREATININE 0.77 mg/dL (0.55-1.30); POTASSIUM 3.7 mmol/L (3.5-5.1)
[2017-01-10 10:46] LABS: ALBUMIN 3.7 g/dL (3.4-4.8); TOTAL BILIRUBIN 0.4 mg/dL (0.0-1.0)
[2017-01-10] MEDS ORDERED: HYDROmorphone 1 MG INJ. 1 MG/ML AMPUL IVP ONE (11:15)
[2017-01-10 12:19] VITALS: BP_SYST 154
== END 2017-01-10 12:19 | disposition home or self-care (01) ==
LOC: SED 08:56
DX: Z89.022 Acquired absence of left finger(s) (principal); I10 Essential (primary) hypertension; E11.29 Type 2 diabetes mellitus with other diabetic kidney complication; N28.9 Disorder of kidney and ureter, unspecified; Z79.899 Other long term (current) drug therapy; Z88.1 Allergy status to other antibiotic agents
CPT/HCPCS: 36415; 80053; 85025; 93005; 96374; 99285; J1170

== ENCOUNTER 2017-02-01 14:00 | Emergency (ER) | payer MEDICAID ==
[~2017-02-01] VITALS: Ht 167.6 cm; Wt 90.7 kg
[2017-02-01 14:00] VITALS: BP_SYST 136
[~2017-02-01 14:00] MED LIST changes: +LACO10SO PO
[2017-02-01] MEDS ORDERED: NACL 0.9% 1,000 ML IV ONE (14:45)
[2017-02-01 15:57] LABS: BASOPHILS # (AUTO) 0.1 K/uL (0.0-0.2); BASOPHILS % (AUTO) 0.9 % (0.0-2.0); EOSINOPHILS % (AUTO) 0.6 % (0.0-4.0); LYMPHOCYTES % (AUTO) 12.3 % (20.5-51.5); MEAN CORPUSCULAR HEMOGLOBIN 24 pg (27-31); MEAN CORPUSCULAR HGB CONC 32 % (32-36); MEAN CORPUSCULAR VOLUME 76 fL (79.0-98.0); MONOCYTES # (AUTO) 0.5 K/uL (0.0-1.0); MONOCYTES % (AUTO) 6.3 % (1.7-9.3); NEUTROPHILS # (AUTO) 6.6 K/uL (1.8-7.7); NEUTROPHILS % (AUTO) 79.9 % (40.0-70.0); PLATELET COUNT (AUTO) 430 K/uL (130-430); RED BLOOD CELL COUNT(AUTO) 4.97 MIL/uL (4.2-6.2); RED CELL DISTRIBUTION WIDTH 16.6 % (9.0-15.0); WHITE BLOOD COUNT (AUTO) 8.2 K/uL (4.8-10.8)
[2017-02-01 16:03] LABS: ANION GAP 9 (5-15); CALCIUM 8.8 mg/dL (8.4-11.0); CHLORIDE 106 mmol/L (98-107); CREATININE 0.78 mg/dL (0.55-1.30); GLUCOSE 82 mg/dL (70-99); POTASSIUM 3.1 mmol/L (3.5-5.1); SODIUM SERUM 137 mmol/L (136-145); UREA NITROGEN, BLOOD 5 mg/dL (8-21)
[2017-02-01 16:04] LABS: INR 1.1 (0.80-1.20); PROTHROMBIN TIME 10.9 SECS (9.5-12.5)
[2017-02-01 16:05] LABS: GFR AFRICAN AMERICAN 140 mL/min (>90)
[2017-02-01 16:19] LABS: ALANINE AMINOTRANSFERASE 23 U/L (12-78); ALBUMIN 4.6 g/dL (3.4-4.8); ASPARTATE AMINOTRANSFERASE 33 U/L (10-37); FREE T4 (FREE THYROXINE) 0.8 ng/dL (0.6-1.6); TOTAL BILIRUBIN 0.5 mg/dL (0.0-1.0)
[2017-02-01 16:21] LABS: ALCOHOL, BLOOD < 3 mg/dL (<10); VALPROIC ACID < 3 ug/mL (50-100)
[2017-02-01 16:50] LABS: BILIRUBIN,URINE NEGATIVE (NEGATIVE); BLOOD, URINE NEGATIVE (NEGATIVE); CLARITY/URINE CLEAR (CLEAR); COLOR,URINE YELLOW (YELLOW); GLUCOSE,URINE NEGATIVE (NEGATIVE); KETONES,URINE NEGATIVE (NEGATIVE); LEUKOCYTE ESTERASE ,URINE NEGATIVE (NEGATIVE); NITRITE, URINE NEGATIVE (NEGATIVE); PROTEIN URINE NEGATIVE (NEGATIVE); UROBILINOGEN,URINE 0.2 (0.2-1.0)
[2017-02-01 17:07] LABS: BARBITURATE, URINE NEGATIVE (NEG <=200); BENZODIAZEPINE, URINE NEGATIVE (NEG <=150); CANNABINOID, URINE NEGATIVE (NEG <=50); COCAINE, URINE NEGATIVE (NEG <=150); METHAMPHETAMINES SCREEN,URINE NEGATIVE (NEG <=500); OPIATE, URINE NEGATIVE (NEG <=100); PHENCYCLIDINE SCREEN,URINE NEGATIVE (NEG <=25); UR TRICYCLIC ANTIDEPRESSANTS NEGATIVE (NEG <=300); URINE AMPHETAMINE NEGATIVE (NEG <=500); URINE METHADONE NEGATIVE (NEG <=200); URINE OXYCODONE SCREEN NEGATIVE (NEG <=100); URINE PROPOXYPHENE SCREEN NEGATIVE (NEG <=300)
[2017-02-01] MEDS ORDERED: POTASSIUM CHLORIDE 20 MEQ TAB.PRT.SR PO ONE (17:15)
[2017-02-01] MEDS ORDERED: MORPHINE 4 MG/ML INJ. SYRINGE IVP ONE (17:15)
[2017-02-01] MEDS ORDERED: DIPHENHYDRAMINE INJ 50 MG/ML VIAL IVP ONE (17:15)
[2017-02-01] MEDS ORDERED: METOPROLOL TARTRATE 5 MG/5 ML VIAL IVP ONE (18:15)
[2017-02-01 19:15] VITALS: BP_SYST 139
== END 2017-02-01 19:15 | disposition home or self-care (01) ==
LOC: SED 14:00
DX: E87.6 Hypokalemia (principal); I10 Essential (primary) hypertension; E11.29 Type 2 diabetes mellitus with other diabetic kidney complication; N28.9 Disorder of kidney and ureter, unspecified; Z96.89 Presence of other specified functional implants; Z79.899 Other long term (current) drug therapy
CPT/HCPCS: 36415; 70450; 71010; 74000; 80053; 80164; 80307; 81003; 82140; 83605; 83880; 84439; 84484; 85025; 85610; 87040; 93005; 96361; 96374; 96375; 99285; G0482; J1200; J2270; J3490; J7030

== ENCOUNTER 2017-02-16 13:47 | Emergency (ER) | payer MEDICAID ==
[~2017-02-16] VITALS: Ht 167.6 cm; Wt 93.0 kg
[~2017-02-16 13:47] MED LIST changes: -GABA-529 PO; +LEVE1000 PO; +NEU100 PO; +OXYC-133 PO; +TAMS-11 PO; +TRAM50TA92 PO
[2017-02-16 13:50] VITALS: BP_SYST 88
[2017-02-16] MEDS ORDERED: ASPIRIN 325 MG TABLET PO ONE (14:15)
[2017-02-16] MEDS ORDERED: CLOPIDOGREL BISULFATE 75 MG TABLET PO ONE (14:15)
[2017-02-16] MEDS ORDERED: NITROGLYCERIN 0.4 MG TAB.SUBL SL ONE (14:15)
[2017-02-16 14:32] LABS: BASOPHILS % (AUTO) 0.8 % (0.0-2.0); EOSINOPHILS # (AUTO) 0.1 K/uL (0.0-0.4); EOSINOPHILS % (AUTO) 1.6 % (0.0-4.0); HEMATOCRIT 32.5 % (36-54); HEMOGLOBIN 10.5 g/dL (14.0-18.0); LYMPHOCYTES # (AUTO) 1.7 K/uL (1.0-5.5); LYMPHOCYTES % (AUTO) 27.7 % (20.5-51.5); MEAN CORPUSCULAR HEMOGLOBIN 24 pg (27-31); MEAN CORPUSCULAR HGB CONC 32 % (32-36); MEAN CORPUSCULAR VOLUME 75 fL (79.0-98.0); MONOCYTES # (AUTO) 0.4 K/uL (0.0-1.0); MONOCYTES % (AUTO) 7.1 % (1.7-9.3); NEUTROPHILS % (AUTO) 62.8 % (40.0-70.0); PLATELET COUNT (AUTO) 379 K/uL (130-430); RED BLOOD CELL COUNT(AUTO) 4.32 MIL/uL (4.2-6.2); RED CELL DISTRIBUTION WIDTH 16.4 % (9.0-15.0); WHITE BLOOD COUNT (AUTO) 6.2 K/uL (4.8-10.8)
[2017-02-16 14:43] LABS: PROTHROMBIN TIME 10.2 SECS (9.5-12.5)
[2017-02-16 14:53] LABS: CHOLESTEROL 253 mg/dL (<200); HDL CHOLESTEROL 43 mg/dL (>45); LDL CHOLESTEROL 152 mg/dL (<100); TRIGLYCERIDES 407 mg/dL (30-150)
[2017-02-16] MEDS ORDERED: MORPHINE 4 MG/ML INJ. SYRINGE IVP ONE ×2 (15:15→16:15)
[2017-02-16 16:05] LABS: CALCIUM 8.7 mg/dL (8.4-11.0); CREATININE 1.02 mg/dL (0.55-1.30); POTASSIUM 4.1 mmol/L (3.5-5.1)
[2017-02-16 16:10] LABS: ALBUMIN 3.8 g/dL (3.4-4.8); TOTAL BILIRUBIN 0.5 mg/dL (0.0-1.0)
[2017-02-16 18:04] VITALS: BP_SYST 110
== END 2017-02-16 18:04 | disposition home or self-care (01) ==
LOC: SED 13:47
DX: T82.847A Pain due to cardiac prosthetic devices, implants and grafts, initial encounter (principal); R07.89 Other chest pain; E11.9 Type 2 diabetes mellitus without complications; I10 Essential (primary) hypertension; M45.9 Ankylosing spondylitis of unspecified sites in spine; Z95.0 Presence of cardiac pacemaker; Z88.1 Allergy status to other antibiotic agents; Z79.899 Other long term (current) drug therapy
CPT/HCPCS: 36415; 71010; 80053; 80061; 82550; 83880; 84484; 85025; 85379; 85610; 85730; 93005; 96374; 96376; 99285; J2270

== ENCOUNTER 2017-02-26 13:55 | Emergency (ER) | payer MEDICAID ==
[~2017-02-26] VITALS: Ht 167.6 cm; Wt 90.7 kg
[2017-02-26 13:59] VITALS: BP_SYST 159
--- NOTE | 2017-02-26 14:03 | NUR ---
Placed in room 6. Placed on fagoting machine operator, blood pressure machine and pulse oximeter. To gown for exam. Side rails up. Report given to Marquis DEJESUS.
--- NOTE | 2017-02-26 14:05 | NUR ---
ER at bedside examining patient.
--- NOTE | 2017-02-26 14:07 | NUR ---
Pt presents to ER c/o L chest pain that resolved prior to arrival. Pt also c/o sob, "seizure-like" symptoms, vomiting, and headache. Pt reports medical history of HTN, spinal arthiritis, seizures, and an enlarged heart. Pt reports surgical history on 2,3,4 digits on L hand. Pt is AOX4. No acute resp distress noted. Pt denies drug use or alcohol consumption.
--- NOTE | 2017-02-26 14:30 | NUR ---
Laboratory at bedside drawing blood specimens.
[2017-02-26] MEDS ORDERED: NACL 0.9% 1,000 ML IV ONE ×3 (14:45→16:15)
[2017-02-26] MEDS ORDERED: METOCLOPRAMIDE HCL 10 MG/2 ML VIAL IVP ONE ×2 (14:45→17:00)
[2017-02-26 15:05] LABS: BASOPHILS % (AUTO) 0.5 % (0.0-2.0); EOSINOPHILS % (AUTO) 0.5 % (0.0-4.0); HEMATOCRIT 40.8 % (36-54); HEMOGLOBIN 12.5 g/dL (14.0-18.0); LYMPHOCYTES # (AUTO) 1.3 K/uL (1.0-5.5); LYMPHOCYTES % (AUTO) 27.4 % (20.5-51.5); MEAN CORPUSCULAR HEMOGLOBIN 23 pg (27-31); MEAN CORPUSCULAR HGB CONC 31 % (32-36); MEAN CORPUSCULAR VOLUME 76 fL (79.0-98.0); MONOCYTES # (AUTO) 0.3 K/uL (0.0-1.0); MONOCYTES % (AUTO) 6.1 % (1.7-9.3); NEUTROPHILS # (AUTO) 3.2 K/uL (1.8-7.7); NEUTROPHILS % (AUTO) 65.5 % (40.0-70.0); PLATELET COUNT (AUTO) 423 K/uL (130-430); RED BLOOD CELL COUNT(AUTO) 5.37 MIL/uL (4.2-6.2); RED CELL DISTRIBUTION WIDTH 16.7 % (9.0-15.0); WHITE BLOOD COUNT (AUTO) 4.8 K/uL (4.8-10.8)
[2017-02-26 15:12] LABS: CALCIUM 9.6 mg/dL (8.4-11.0); CREATININE 0.82 mg/dL (0.55-1.30); POTASSIUM 3.4 mmol/L (3.5-5.1)
[2017-02-26 15:16] LABS: ALBUMIN 4.6 g/dL (3.4-4.8); TOTAL BILIRUBIN 0.6 mg/dL (0.0-1.0)
[2017-02-26 15:17] LABS: PROTHROMBIN TIME 10.1 SECS (9.5-12.5)
--- NOTE | 2017-02-26 15:30 | NUR ---
Patient transported to radiology via gurney, accompanied by rad staff.
--- NOTE | 2017-02-26 15:55 | NUR ---
Returned from radiology, back to [facility].
[2017-02-26] MEDS ORDERED: cefTRIAXone 1 GM in D5W 50 ML IV ONE (16:15)
[2017-02-26] MEDS ORDERED: POTASSIUM CHLORIDE 20 MEQ TAB.PRT.SR PO ONE (16:15)
[2017-02-26] MEDS ORDERED: KETOROLAC TROMETHAMINE 30 MG VIAL IVP ONE (16:15)
[2017-02-26] MEDS ORDERED: cefTRIAXone 1 GM VIAL ONE (16:36)
--- NOTE | 2017-02-26 16:40 | NUR ---
Urine collected and sent to lab
--- NOTE | 2017-02-26 16:50 | NUR ---
Antibiotics administering to pt. Pt tolerating well. Will continue to monitor.
--- NOTE | 2017-02-26 16:53 | NUR ---
Dr. Farmer at bedside updating pt on lab and diagnostic results.
[2017-02-26] MEDS ORDERED: MORPHINE 4 MG/ML INJ. SYRINGE IVP ONE ×2 (17:00→18:00)
--- NOTE | 2017-02-26 17:10 | NUR ---
Pt medicated for headache, pain level 10/10. Pt tolerated well. Will reassess pain level.
--- NOTE | 2017-02-26 17:16 | NUR ---
Pt states that Morphine decreased pain level. Pt states pain is at tolerable level of 3/10. Will continue to monitor.
[2017-02-26 18:02] LABS: BILIRUBIN,URINE NEGATIVE (NEGATIVE); BLOOD, URINE NEGATIVE (NEGATIVE); CLARITY/URINE CLEAR (CLEAR); COLOR,URINE YELLOW (YELLOW); GLUCOSE,URINE NEGATIVE (NEGATIVE); KETONES,URINE NEGATIVE (NEGATIVE); LEUKOCYTE ESTERASE ,URINE NEGATIVE (NEGATIVE); NITRITE, URINE NEGATIVE (NEGATIVE); PH,URINE 7.5 (5.0-8.0); PROTEIN URINE NEGATIVE (NEGATIVE); UROBILINOGEN,URINE 0.2 (0.2-1.0)
--- NOTE | 2017-02-26 18:17 | NUR ---
Pt medicated for headache pain level 10/10 as stated by pt. Pt states that previous morphine dose provided temporary pain relief. Will continue to monitor. Pt tolerated well.
--- NOTE | 2017-02-26 18:30 | NUR ---
Pt verbalizes that he is no longer in pain after 2nd administration of morphine.
[2017-02-26 18:40] VITALS: BP_SYST 159
--- NOTE | 2017-02-26 18:40 | NUR ---
Patient given written and verbal discharge instructions and verbalizes understanding. ER MD discussed with patient the results and treatment provided. Patient in stable condition. ID arm band removed. IV catheter removed intact and dressing applied, no active bleeding. Rx of Reglan given. Patient educated on pain management and to follow up with PMD. Pain Scale 0/10. Opportunity for questions provided and answered.
== END 2017-02-26 18:40 | disposition home or self-care (01) ==
LOC: SED 13:55
DX: G43.909 Migraine, unspecified, not intractable, without status migrainosus (principal); R07.89 Other chest pain; I10 Essential (primary) hypertension; E11.29 Type 2 diabetes mellitus with other diabetic kidney complication; N28.9 Disorder of kidney and ureter, unspecified; M45.9 Ankylosing spondylitis of unspecified sites in spine; H54.40 Blindness, one eye, unspecified eye; Z95.0 Presence of cardiac pacemaker; Z88.1 Allergy status to other antibiotic agents
CPT/HCPCS: 36415; 70450; 71010; 80053; 81003; 82150; 82550; 83605; 83690; 83880; 84484; 85025; 85379; 85610; 87040; 93005; 96365; 96375; 96376; 99285; J0696; J1885; J2270; J2765; J7030; J7060

== ENCOUNTER 2017-06-08 16:37 | Inpatient (IN) | payer MEDICAID ==
[~2017-06-08] VITALS: Ht 167.6 cm; Wt 86.6 kg
--- NOTE | 2017-06-08 16:39 | NUR ---
Placed in room 05 . Placed on dielectric tester, blood pressure machine and pulse oximeter. To gown for exam. Side rails up.
--- NOTE | 2017-06-08 16:41 | NUR ---
Pt was brought in by via wheelchair, complaining of altered mental status. Per , pt has hx of seizures and had one earlier today around 4pm. states she received a phone call from daughter stating pt was "mumbling and acting different." Per , pt "has mild seizures every few months, but today it was severe because he was vomiting and mumbling words." Pt is AAO x 3, symmetrical facial features, no arm drift noted, able to follow commands, and slurred speech. Difficult to elicit history of present illness. No other injuries/complaints per patient or noted. at bedside. Addendum: 06/08/17 at 1902 by [email or web address] Per , pt had about three seizures this week and went to [facility]
[2017-06-08] MEDS ORDERED: ASPIRIN 81 MG TAB.CHEW PO ONE (16:45)
[2017-06-08] MEDS ORDERED: NACL 0.9% 1,000 ML IV ONE (16:45)
--- NOTE | 2017-06-08 16:45 | NUR ---
ER Dr. Griffin at bedside examining patient.
[2017-06-08 16:47] VITALS: BP_SYST 160
--- NOTE | 2017-06-08 17:40 | NUR ---
Medications were given, pt tolerated well. No adverse reaction, will continue to monitor.
[2017-06-08 18:23] LABS: BASOPHILS % (AUTO) 0.3 % (0.0-2.0); EOSINOPHILS % (AUTO) 0.6 % (0.0-4.0); HEMATOCRIT 32.8 % (36-54); HEMOGLOBIN 10.6 g/dL (14.0-18.0); LYMPHOCYTES # (AUTO) 1.4 K/uL (1.0-5.5); LYMPHOCYTES % (AUTO) 22.5 % (20.5-51.5); MEAN CORPUSCULAR HEMOGLOBIN 26 pg (27-31); MEAN CORPUSCULAR HGB CONC 32 % (32-36); MEAN CORPUSCULAR VOLUME 79 fL (79.0-98.0); MONOCYTES # (AUTO) 0.5 K/uL (0.0-1.0); MONOCYTES % (AUTO) 8.7 % (1.7-9.3); NEUTROPHILS # (AUTO) 4.3 K/uL (1.8-7.7); NEUTROPHILS % (AUTO) 67.9 % (40.0-70.0); PLATELET COUNT (AUTO) 345 K/uL (130-430); RED BLOOD CELL COUNT(AUTO) 4.15 MIL/uL (4.2-6.2); RED CELL DISTRIBUTION WIDTH 18.3 % (9.0-15.0); WHITE BLOOD COUNT (AUTO) 6.2 K/uL (4.8-10.8)
[2017-06-08 18:26] LABS: ANION GAP 7 (5-15); CALCIUM 8.6 mg/dL (8.4-11.0); CHLORIDE 102 mmol/L (98-107); GLUCOSE 93 mg/dL (70-99); POTASSIUM 3.4 mmol/L (3.5-5.1); SODIUM SERUM 137 mmol/L (136-145); UREA NITROGEN, BLOOD 9 mg/dL (8-21)
[2017-06-08 18:27] LABS: GFR AFRICAN AMERICAN 159 mL/min (>90)
[2017-06-08 18:30] LABS: PROTHROMBIN TIME 9.9 SECS (9.5-12.5)
[2017-06-08 18:42] LABS: ALANINE AMINOTRANSFERASE 15 U/L (12-78); ALBUMIN 3.7 g/dL (3.4-4.8); AMYLASE 56 U/L (0-100); ASPARTATE AMINOTRANSFERASE 19 U/L (10-37); LIPASE 91 U/L (73-393); TOTAL BILIRUBIN 0.4 mg/dL (0.0-1.0)
[2017-06-08] MEDS ORDERED: ALBMDI INH (18:58)
--- NOTE | 2017-06-08 18:58 | NUR ---
Medication reconciliation completed with information provided by patient. Any prior medication reconciliation on file was reviewed and corrected.
--- NOTE | 2017-06-08 19:13 | NUR ---
Report given to ANJELICA Serrano. All care endorsed.
[2017-06-08] MEDS ORDERED: levETIRAcetam 500 MG TABLET PO ONE (19:15)
--- NOTE | 2017-06-08 19:15 | NUR ---
Recieved report from Mary Kay DEJESUS. Will assume care at this time. Patient resting quietly. C/O 06/25 pain to back. Presents with mild slurred speech and increased confusion. Respirations even. at bedside.
[2017-06-08 19:17] LABS: ALCOHOL, BLOOD < 3 mg/dL (<10)
--- NOTE | 2017-06-08 19:33 | NUR ---
#22 gauge angiocath placed to right hand. Use of asceptic technique. Opsite placed over site. Blood return noted. Flushed with 10 cc of normal saline. No evidence of infiltration noted. Patient tolerated well.
--- NOTE | 2017-06-08 20:01 | NUR ---
#14 FR In and Out catheter with use of sterile technique. Immediate return of 500 ml kamille urine noted. Urine sample collected and sent to lab. Pt tolerated procedure well. Patient unable to toilet self.
[2017-06-08 20:21] LABS: BILIRUBIN,URINE NEGATIVE (NEGATIVE); BLOOD, URINE NEGATIVE (NEGATIVE); CLARITY/URINE CLEAR (CLEAR); COLOR,URINE YELLOW (YELLOW); GLUCOSE,URINE NEGATIVE (NEGATIVE); KETONES,URINE NEGATIVE (NEGATIVE); LEUKOCYTE ESTERASE ,URINE NEGATIVE (NEGATIVE); NITRITE, URINE NEGATIVE (NEGATIVE); PH,URINE 7.5 (5.0-8.0); PROTEIN URINE NEGATIVE (NEGATIVE); UROBILINOGEN,URINE 0.2 (0.2-1.0)
[2017-06-08 20:33] LABS: BARBITURATE, URINE NEGATIVE (NEG <=200); BENZODIAZEPINE, URINE NEGATIVE (NEG <=150); CANNABINOID, URINE NEGATIVE (NEG <=50); COCAINE, URINE NEGATIVE (NEG <=150); METHAMPHETAMINES SCREEN,URINE NEGATIVE (NEG <=500); OPIATE, URINE NEGATIVE (NEG <=100); PHENCYCLIDINE SCREEN,URINE NEGATIVE (NEG <=25); UR TRICYCLIC ANTIDEPRESSANTS NEGATIVE (NEG <=300); URINE AMPHETAMINE NEGATIVE (NEG <=500); URINE METHADONE NEGATIVE (NEG <=200); URINE OXYCODONE SCREEN NEGATIVE (NEG <=100); URINE PROPOXYPHENE SCREEN NEGATIVE (NEG <=300)
[2017-06-08] MEDS ORDERED: VALPROIC ACID 250 MG CAPSULE (DEPAKENE) ONE (20:40)
[2017-06-08] MEDS: VALPROIC ACID 250 MG CAPSULE (DEPAKENE) PO SCH ×2 (20:41→21:00)
--- NOTE | 2017-06-08 20:49 | NUR ---
ADMIT NOTE Received pt from ER to the floor with a diagnosis of seizure. Admission process initiated. patient oriented to pain management, safety and call light-teach back done.
--- NOTE | 2017-06-08 20:57 | NUR ---
Patient will be admitted to care of Dr. Phillips. Admitted to Telmetry unit. Will go to room 104B. Belongings list completed. Summary report printed. Report will be given at bedside. Transfer to telemetry via ACLS protocol. Licensed nurse present. IV present no signs or symptoms of infiltration.
--- NOTE | 2017-06-08 21:15 | NUR ---
PHONED PAGED DR GILLETTE FOR CLARIFICATION OF MEDICATION ORDERS .
[2017-06-08 21:20] VITALS: BP_SYST 161
--- NOTE | 2017-06-08 21:24 | NUR ---
ADMIT NOTE Received pt from ER to the floor with a diagnosis of SEIZRE. Admission process initiated. patient oriented to pain management, safety and call light-teach back done, PATIENT VERBALIZE UNDERSTANDING .
--- NOTE | 2017-06-08 21:25 | NUR ---
URMILA GILLETTE, MAY DURANT
--- NOTE | 2017-06-08 21:37 | NUR ---
PHONED SPOKE WITH DR GILLETTE NEW ORDERS , OBTAINED .
[2017-06-08] MEDS ORDERED: LISINOPRIL 20 MG TABLET PO ONE (22:15)
[2017-06-08] MEDS ORDERED: ALBUTEROL SULFATE 0.083% 2.5 MG/3 ML VIAL.NEB INH PRN (22:45)
[2017-06-08] MEDS ORDERED: cloNIDine HCL 0.1 MG TABLET PO PRN (22:45)
[2017-06-08] MEDS ORDERED: POTASSIUM CHLORIDE 20 MEQ TAB.PRT.SR PO ONE (22:45)
[2017-06-08] MEDS ORDERED: ONDANSETRON HCL 4 MG/2 ML VIAL IVP PRN (22:45)
[2017-06-08] MEDS ORDERED: traMADol HCL HCL 50 MG TABLET (ULTRAM) PO PRN (22:45)
[2017-06-08] MEDS ORDERED: ACETAMINOPHEN 325 MG TABLET PO PRN (22:45)
--- NOTE | 2017-06-08 22:55 | NUR ---
Consult Called Reason for Consultation: Seizures Was the consult called: Y Person who was notified: Jess Consulting Physician: Darius Pereira Blueprint Tracer Ordering Physician: Dr. Phillips
[2017-06-08] MEDS: LORazepam 1 MG TABLET PO PRN (23:09)
[2017-06-08] MEDS: MORPHINE 2 MG/ML INJ. SYRINGE IVP PRN (23:11)
--- NOTE | 2017-06-08 23:35 | NUR ---
MORGAN CATHETER INSERTED FOR URINE , TOLERATED FREE FLOW YELLOW CLEAR URINE 350 ML TO BSDB .
--- NOTE | 2017-06-08 23:36 | NUR ---
PATIENT REFUSE , STAT LOCK FOR MORGAN CATHETER .
--- NOTE | 2017-06-08 23:37 | NUR ---
LORAZEPAM 0.5 MG PO ADMINISTER FOR AGITATION & HELPFUL .
--- NOTE | 2017-06-08 23:39 | NUR ---
MORPHINE SULFATE 2 MG IVP FOR BACK PAIN 09/24 & HELPFUL .
[2017-06-09 00:06] VITALS: BP_SYST 134
--- NOTE | 2017-06-09 00:30 | NUR ---
LISINOPRIL 20 MG PO ADMINISTER FOR HTN PER DR LETA SR , NEW ORDERS .
[2017-06-09 01:25] VITALS: BP_SYST 134
--- NOTE | 2017-06-09 03:03 | NUR ---
TYLENOL 650 MG PO GIVEN FOR GENERAL pain 05/25 & helpful .
--- NOTE | 2017-06-09 05:20 | NUR ---
Patient resting , is verbally responsive encourage position change , MORGAN catheter for urine patent yellow clear urine noted .
[2017-06-09] MEDS: MORPHINE 2 MG/ML INJ. SYRINGE IVP PRN ×3 (06:30→16:55)
[2017-06-09 07:21] LABS: CALCIUM 8.7 mg/dL (8.4-11.0); CREATININE 0.61 mg/dL (0.55-1.30); POTASSIUM 3.7 mmol/L (3.5-5.1)
--- NOTE | 2017-06-09 07:30 | NUR ---
Opening Note Patient resting in bed, awake, alert and oriented x4, no complaints of pain at this time, breathing unlabored on room air, IV site patent and in tact, saline locked, no signs of redness or swelling, SCDs are on for DVT prophylaxis, Zavala catheter draining via gravity, patient educated on use of call light for assistance, he verbalized understanding, call light left within reach, bedside table within reach, seizure precautions in place with padded rails, will be back to check on patient
[2017-06-09 07:50] LABS: BASOPHILS % (AUTO) 0.2 % (0.0-2.0); EOSINOPHILS % (AUTO) 0.9 % (0.0-4.0); HEMATOCRIT 33.8 % (36-54); HEMOGLOBIN 10.8 g/dL (14.0-18.0); LYMPHOCYTES # (AUTO) 1.3 K/uL (1.0-5.5); MEAN CORPUSCULAR HEMOGLOBIN 25 pg (27-31); MEAN CORPUSCULAR HGB CONC 32 % (32-36); MEAN CORPUSCULAR VOLUME 79 fL (79.0-98.0); MONOCYTES # (AUTO) 0.4 K/uL (0.0-1.0); MONOCYTES % (AUTO) 10.6 % (1.7-9.3); NEUTROPHILS # (AUTO) 2.5 K/uL (1.8-7.7); NEUTROPHILS % (AUTO) 56.3 % (40.0-70.0); PLATELET COUNT (AUTO) 333 K/uL (130-430); RED BLOOD CELL COUNT(AUTO) 4.28 MIL/uL (4.2-6.2); RED CELL DISTRIBUTION WIDTH 18.5 % (9.0-15.0)
[2017-06-09 07:52] LABS: WHITE BLOOD COUNT (AUTO) 4.2 K/uL (4.8-10.8)
[2017-06-09 08:00] VITALS: BP_SYST 123
[2017-06-09] MEDS: levETIRAcetam 500 MG TABLET PO SCH ×2 (08:27→20:53)
[2017-06-09] MEDS: LORazepam 2 MG/ML VIAL IVP PRN ×2 (08:27→18:23)
[2017-06-09] MEDS: VALPROIC ACID 250 MG CAPSULE (DEPAKENE) PO SCH ×3 (08:28→20:53)
[2017-06-09] MEDS: FAMOTIDINE 20 MG TABLET PO SCH (08:28)
--- NOTE | 2017-06-09 08:33 | NUR ---
Medication Administration Patient resting in bed awake with head of bed elevated, breathing unlabored on room air, morning medications were administered and PRN Ativan was administered for anxiety, IV site patent and in tact, no signs of redness or swelling, patient has no other needs at this time, he was instructed to use call light for assistance, verbalized understanding, safety and seizure precautions in place, bed in lowest position with 3 side rails up and padded, bedside table and call light within reach, will continue to monitor patient
[2017-06-09] MEDS ORDERED: LACOSAMIDE 10 MG PO SCH (09:00)
--- NOTE | 2017-06-09 09:59 | NUR ---
RN Rounds Patient resting in bed with eyes closed, head of bed elevated, breathing unlabored on room air with symmetrical chest expansion, call light resting in patient's belly, bedside table within reach, SCDs on, gonzalez catheter draining via gravity, bed in lowest position with 2 side rails up, seizure precautions remain in place, will continue to monitor patient
[2017-06-09 12:05] VITALS: BP_SYST 106
--- NOTE | 2017-06-09 12:58 | NUR ---
RN Rounds Patient resting in bed with head of bed elevated, new IV started on left forearm 22 Gauge by Marva DEJESUS, IV site patent and in tact, no signs of redness or swelling, Morphine was administered via IV push for pain 10/10 on lower back, patient educated on pain management, he verbalized understanding, safety and seizure precautions in place, bed in lowest position with 3 side rails up and padded, call light and bedside table within reach, will continue to monitor and reassess pain
--- NOTE | 2017-06-09 14:06 | NUR ---
Dr. Phillips at Bedside at this time, will follow up with MD orders
[2017-06-09] MEDS: HYDROcodone/ACETAMIN 7.5-325 MG TAB PO PRN (15:13)
--- NOTE | 2017-06-09 15:16 | NUR ---
RN Rounds Patient resting in bed, head of bed elevated, [employer] was given for pain 6/10 on lower back per pain scale protocol, patient educated regarding pain management and potential side effects of medication, verbalized understanding, breathing unlabored on room air, IV site saline locked, safety and seizure precautions in place, bed in lowest position with 3 side rails up and padded, bedside table and call light within reach, will continue to monitor patient and reassess pain scale
[2017-06-09 16:05] VITALS: BP_SYST 132
--- NOTE | 2017-06-09 16:58 | NUR ---
Morphine was administered via IV push for pain 10/10 on lower back, IV site patent and in tact, no signs of redness or swelling, patient has visitors at bedside, states he has no other needs at this time, breathing unlabored on room air, patient instructed to use the call light for assistance, he verbalized understanding, safety and seizure precautions in place, bed in lowest position with 3 side rails up and padded, bedside table and call light within reach, will continue to monitor patient
--- NOTE | 2017-06-09 17:53 | NUR ---
RN Rounds patient sitting up in bed eating dinner, asked about how his pain was and he said it was better at the moment, patient stated he has no other needs at this time, breathing unlabored on room air, seizure and fall precautions remain in place, bed in lowest position with 3 side rails up and padded, call light within reach, will continue to monitor patient
--- NOTE | 2017-06-09 18:40 | NUR ---
Closing Note Patient resting in bed with eyes closed, head of bed elevated, breathing unlabored on room air, symmetrical chest expansion, side rails padded for seizure precautions, IV site patent and saline locked, gonzalez bag draining via gravity, all needs were met during shift, seizure and fall precautions remain in place, bed in lowest position with 3 side rails up and padded, call light and bedside table are close to patient, will endorse to shift superintendent nurse
[2017-06-09 20:32] VITALS: BP_SYST 137
[2017-06-09] MEDS: MORPHINE 4 MG/ML INJ. SYRINGE IVP PRN (20:54)
--- NOTE | 2017-06-09 21:05 | NUR ---
PATIENT AWAKE ALERT sitting up in bed , verbally indicative on room air 02 SAT 96 % chest movement symmetrical / .
--- NOTE | 2017-06-09 21:06 | NUR ---
MORPHINE SULFATE 2 MG IVP administer for pain 09/24 generalized position change encouraged & helpful .
[2017-06-09] MEDS: LORazepam 1 MG TABLET PO PRN (23:10)
[2017-06-10] VITALS: BP_SYST 132
[2017-06-10] MEDS: MORPHINE 4 MG/ML INJ. SYRINGE IVP PRN ×5 (02:32→21:10)
[2017-06-10] MEDS: HYDROcodone/ACETAMIN 7.5-325 MG TAB PO PRN (04:42)
--- NOTE | 2017-06-10 04:52 | NUR ---
SEIZURE PRECAUTION IMPLEMENTED & EFFECTIVE .
--- NOTE | 2017-06-10 04:52 | NUR ---
LORAZEPAM 0.5 MG PO GIVEN FOR AGITATION & HELPFUL .
--- NOTE | 2017-06-10 04:53 | NUR ---
NORCO TABLET ES GIVEN PO FOR GENERAL PAIN / , patient exhibits drug seeking behavior / .
--- NOTE | 2017-06-10 07:30 | NUR ---
Initial notes: Patient on bed sleeping. Stable. I,.V. access patent. Safety measures in placed. Call light within reach. Report received at bedside.
[2017-06-10 08:00] VITALS: BP_SYST 106
[2017-06-10] MEDS: VALPROIC ACID 250 MG CAPSULE (DEPAKENE) PO SCH ×3 (09:33→21:10)
[2017-06-10] MEDS: FAMOTIDINE 20 MG TABLET PO SCH (09:34)
[2017-06-10] MEDS: levETIRAcetam 500 MG TABLET PO SCH ×2 (09:34→21:10)
--- NOTE | 2017-06-10 09:35 | NUR ---
rounds: patient on bed having breakfast. at bedside. no distress noted. Addendum: 06/10/17 at 0937 by Johnna Chavez RN requested for bed to placed high. He wants to see the t.v. and difficult for him if not on eye level.
--- NOTE | 2017-06-10 11:04 | NUR ---
rounds: patient resting on bed. complained of low back pain. 12/25. Due pain meds given.
[2017-06-10 12:00] VITALS: BP_SYST 114
[2017-06-10 12:08] VITALS: BP_SYST 119
[2017-06-10] MEDS: LORazepam 2 MG/ML VIAL IVP PRN ×2 (12:08→18:47)
--- NOTE | 2017-06-10 14:00 | NUR ---
rounds: patient watching tv. no distress noted.
--- NOTE | 2017-06-10 15:36 | NUR ---
PAGE CALLED FOR DR. GRULLON. SPOKE TO [place], DIALED [phone].
[2017-06-10 17:08] VITALS: BP_SYST 119
--- NOTE | 2017-06-10 18:07 | NUR ---
Rolando jade: Seen by Kristi with new order for EEG tomorrow.
--- NOTE | 2017-06-10 19:00 | NUR ---
Closing notes: Patient resting on the bed. Stable. Needs attended. Safety measures and seizure precaution in placed. Call light within reach. Report given to ANJELICA Wong.
--- NOTE | 2017-06-10 19:15 | NUR ---
RN OPENING NOTE Received report from Johnna Veliz RN. Patient resting and sitting in bed. No C/O at this time. Patient on RA, A&O x 4, Italian-speaking, and cooperative. Bed locked at lowest position, rails up, seizure pads in place, and call hurtado within reach. Standard, seizure, and fall precautions implemented. Peripheral IV noted, Left forearm 22 G, patent, benign, and saline locked. FC noted and draining. Plan of care discussed w/ patient.
[2017-06-10 20:04] VITALS: BP_SYST 108
[2017-06-10] MEDS: LACOSAMIDE 100 MG TABLET PO SCH (21:11)
--- NOTE | 2017-06-10 21:40 | NUR ---
RN ROUNDING Patient's pain reassessed. Patient stated pain is around a 5 and is slowly decreasing. Pain management effective. No other stated C/O at this time. Seizure pads in place as precautionary measures. Will continue to monitor patient.
[2017-06-11 00:04] VITALS: BP_SYST 106
--- NOTE | 2017-06-11 00:05 | NUR ---
RN ROUNDING Patient resting in bed. Patient C/O lower back pain slowly coming back. Informed patient regarding time frame for next PRN pain management dose. Patient verbalized understanding.
[2017-06-11] MEDS: MORPHINE 4 MG/ML INJ. SYRINGE IVP PRN ×3 (02:13→13:20)
[2017-06-11] MEDS: LORazepam 2 MG/ML VIAL IVP PRN ×4 (03:08→17:43)
--- NOTE | 2017-06-11 04:10 | NUR ---
RN ROUNDING Patient resting in bed. No C/O at this time. Will continue to monitor.
--- NOTE | 2017-06-11 06:42 | NUR ---
RN CLOSING NOTE Patient resting in bed. No C/O at this time. Patient on RA, A&O x 4, Sudanese-speaking, and cooperative. Bed locked at lowest position, rails up, seizure pads in place, and call hurtado within reach. Standard, seizure, and fall precautions implemented. Peripheral IV noted, Left forearm 22 G, patent, benign, and saline locked. FC noted and draining. Addendum: 06/11/17 at 0731 by Marvin Ramirez RN Report given to ANJELICA Woodward.
--- NOTE | 2017-06-11 07:25 | NUR ---
Initial Note Received report from the night nurse Marvin. Pt AOX4. No signs of distress noted at this time. Bed is at lowest position with bed alarm on. Call light within reach.
[2017-06-11 07:35] VITALS: BP_SYST 120
[2017-06-11] MEDS: FAMOTIDINE 20 MG TABLET PO SCH (08:49)
[2017-06-11] MEDS: VALPROIC ACID 250 MG CAPSULE (DEPAKENE) PO SCH ×2 (08:49→15:08)
[2017-06-11] MEDS: levETIRAcetam 500 MG TABLET PO SCH (08:50)
[2017-06-11] MEDS: LACOSAMIDE 100 MG TABLET PO SCH (08:52)
--- NOTE | 2017-06-11 11:35 | NUR ---
RN Round Pt resting and no signs of distress noted at this time. Bed is at lowest position with bed alarm on. Call light within reach.
[2017-06-11 12:00] VITALS: BP_SYST 116
[2017-06-11] MEDS ORDERED: MORPHINE 4 MG/ML INJ. SYRINGE IVP PRN (15:00)
--- NOTE | 2017-06-11 15:25 | NUR ---
PHYSICAL THERAPY CO-SIGN The Physical Therapy Progress Notes documented by Substance Addiction Coordinator have been reviewed. I CONCUR W/WARD SUPERVISOR NOTE; CONT PER TX PLAN Reviewed/Co-Signed by: Kiesha Palomino PT Documentation Done by: ILA MANZO PTA Addendum: 06/11/17 at 1526 by Kiesha Palomino PT Amended: Links added.
--- NOTE | 2017-06-11 15:35 | NUR ---
RN Round Pt awake and does not shows any signs of distress at this time. Bed is at lowest position with bed alarm on. Call light within reach.
[2017-06-11 16:18] VITALS: BP_SYST 132
[2017-06-11 17:09] VITALS: BP_SYST 132
[2017-06-11] MEDS ORDERED: DIVA250T34 PO (18:17)
--- NOTE | 2017-06-11 18:35 | NUR ---
Discharge Note Pt has been discharged as ordered by DR. Phillips. EEG done. Pt is in stable condition at the time of discharge. Transitional care documents, written prescription, and instruction given to pt. IV line removed gauze and pressure applied. No signs of bleeding noted. ID band removed.
== END 2017-06-11 18:30 | disposition home or self-care (01) | DRG 53 ==
LOC: SED 16:37 → STU 20:31 → SMU 06-10 22:45
PROVIDERS: ADMIT Internal Medicine; ATTEND Internal Medicine
DX: G40.919 Epilepsy, unspecified, intractable, without status epilepticus (principal); N31.9 Neuromuscular dysfunction of bladder, unspecified; I10 Essential (primary) hypertension; E87.6 Hypokalemia; B19.20 Unspecified viral hepatitis C without hepatic coma; G89.4 Chronic pain syndrome; M45.9 Ankylosing spondylitis of unspecified sites in spine; H54.8 Legal blindness, as defined in USA; E11.9 Type 2 diabetes mellitus without complications; N40.0 Benign prostatic hyperplasia without lower urinary tract symptoms; Z95.0 Presence of cardiac pacemaker; Z88.1 Allergy status to other antibiotic agents; Z89.022 Acquired absence of left finger(s)
CPT/HCPCS: 36415; 70450-TC; 71045; 72110; 80048; 80053; 80164-TC; 80307; 81003; 82150-TC; 82542; 83690-TC; 83735-TC; 84484; 85025; 85610-TC; 85730-TC; 87081; 93005; 94640; 94760; 95816; 96360; 97116-GP; 97530-GP; 99285; G0482; J2060; J2270

== ENCOUNTER 2017-06-17 12:06 | Emergency (ER) | payer MEDICAID ==
[~2017-06-17] VITALS: Ht 170.2 cm; Wt 74.8 kg
[~2017-06-17 12:06] MED LIST changes: +ALBMDI INH; -AMLO5TAB4 PO; -ARTT OP; -CAT.1 PO; +DIVA250T34 PO; -DIVA500T7 PO; -LISI-209 PO; -NEU100 PO; -OXYC-133 PO; -TAMS-11 PO; -TRAM50TA92 PO; -VITD2000 PO
[2017-06-17 12:07] VITALS: BP_SYST 148
[2017-06-17] MEDS ORDERED: LORazepam 1 MG TABLET PO ONE (12:30)
[2017-06-17 13:02] LABS: BASOPHILS % (AUTO) 0.7 % (0.0-2.0); EOSINOPHILS # (AUTO) 0.1 K/uL (0.0-0.4); EOSINOPHILS % (AUTO) 1.3 % (0.0-4.0); HEMATOCRIT 33.3 % (36-54); HEMOGLOBIN 10.9 g/dL (14.0-18.0); LYMPHOCYTES # (AUTO) 1.5 K/uL (1.0-5.5); LYMPHOCYTES % (AUTO) 24.8 % (20.5-51.5); MEAN CORPUSCULAR HEMOGLOBIN 25 pg (27-31); MEAN CORPUSCULAR HGB CONC 33 % (32-36); MEAN CORPUSCULAR VOLUME 78 fL (79.0-98.0); MONOCYTES # (AUTO) 0.4 K/uL (0.0-1.0); MONOCYTES % (AUTO) 6.9 % (1.7-9.3); NEUTROPHILS # (AUTO) 4.1 K/uL (1.8-7.7); NEUTROPHILS % (AUTO) 66.3 % (40.0-70.0); PLATELET COUNT (AUTO) 401 K/uL (130-430); RED CELL DISTRIBUTION WIDTH 17.4 % (9.0-15.0); WHITE BLOOD COUNT (AUTO) 6.1 K/uL (4.8-10.8)
[2017-06-17 13:15] LABS: CALCIUM 8.8 mg/dL (8.4-11.0); CREATININE 0.62 mg/dL (0.55-1.30); POTASSIUM 4.3 mmol/L (3.5-5.1)
[2017-06-17 13:26] LABS: ALBUMIN 3.7 g/dL (3.4-4.8); TOTAL BILIRUBIN 0.2 mg/dL (0.0-1.0)
[2017-06-17] MEDS ORDERED: ONDANSETRON 4 MG ODT TAB PO ONE (13:45)
[2017-06-17] MEDS ORDERED: LACOSAMIDE 100 MG TABLET PO SCH (13:45)
[2017-06-17] MEDS ORDERED: LACOSAMIDE 100 MG TABLET ONE (13:54)
[2017-06-17] MEDS ORDERED: KETAMINE HCL 500 MG/10 ML VIAL IM ONE (14:00)
[2017-06-17 15:21] VITALS: BP_SYST 130
== END 2017-06-17 15:21 | disposition home or self-care (01) ==
LOC: SED 12:06
DX: G40.409 Other generalized epilepsy and epileptic syndromes, not intractable, without status epilepticus (principal); I10 Essential (primary) hypertension; E11.29 Type 2 diabetes mellitus with other diabetic kidney complication; N28.9 Disorder of kidney and ureter, unspecified; N40.0 Benign prostatic hyperplasia without lower urinary tract symptoms; H54.61 Unqualified visual loss, right eye, normal vision left eye; Z96.89 Presence of other specified functional implants; Z95.0 Presence of cardiac pacemaker; Z88.1 Allergy status to other antibiotic agents
CPT/HCPCS: 36415; 80053; 85025; 99284; Q0162

== ENCOUNTER 2017-07-02 17:37 | Inpatient (IN) | payer MEDICAID ==
[~2017-07-02] VITALS: Ht 167.6 cm; Wt 87.5 kg
[2017-07-02 17:40] VITALS: BP_SYST 82
[2017-07-02] MEDS ORDERED: NACL 0.9% 1,000 ML IV ONE ×2 (18:15→19:00)
[2017-07-02] MEDS ORDERED: ASPIRIN 81 MG TAB.CHEW PO ONE (18:15)
[2017-07-02] MEDS ORDERED: NALOXONE HCL 0.4 MG/ML AMP (NARCAN) IVP ONE (18:15)
[2017-07-02] MEDS ORDERED: KETOROLAC TROMETHAMINE 30 MG VIAL IVP ONE (18:30)
[2017-07-02 18:31] LABS: BASOPHILS % (AUTO) 0.7 % (0.0-2.0); EOSINOPHILS # (AUTO) 0.1 K/uL (0.0-0.4); EOSINOPHILS % (AUTO) 1.8 % (0.0-4.0); LYMPHOCYTES % (AUTO) 21.7 % (20.5-51.5); MEAN CORPUSCULAR HEMOGLOBIN 27 pg (27-31); MEAN CORPUSCULAR HGB CONC 33 % (32-36); MEAN CORPUSCULAR VOLUME 79 fL (79.0-98.0); MONOCYTES # (AUTO) 0.3 K/uL (0.0-1.0); NEUTROPHILS # (AUTO) 3.4 K/uL (1.8-7.7); NEUTROPHILS % (AUTO) 68.8 % (40.0-70.0); PLATELET COUNT (AUTO) 382 K/uL (130-430); RED BLOOD CELL COUNT(AUTO) 4.54 MIL/uL (4.2-6.2); RED CELL DISTRIBUTION WIDTH 17.2 % (9.0-15.0); WHITE BLOOD COUNT (AUTO) 4.8 K/uL (4.8-10.8)
[2017-07-02 18:43] LABS: CALCIUM 9.6 mg/dL (8.4-11.0); CREATININE 0.99 mg/dL (0.55-1.30); POTASSIUM 3.9 mmol/L (3.5-5.1)
[2017-07-02 18:46] LABS: PROTHROMBIN TIME 10.3 SECS (9.5-12.5)
[2017-07-02 18:48] LABS: ALBUMIN 3.6 g/dL (3.4-4.8); TOTAL BILIRUBIN 0.3 mg/dL (0.0-1.0)
[2017-07-02] MEDS ORDERED: OXYC-130 PO (20:23)
[2017-07-02] MEDS ORDERED: ERGO400C2 PO (20:23)
[2017-07-02 21:05] VITALS: BP_SYST 117
[2017-07-02 22:28] LABS: BILIRUBIN,URINE NEGATIVE (NEGATIVE); BLOOD, URINE NEGATIVE (NEGATIVE); CLARITY/URINE CLEAR (CLEAR); COLOR,URINE YELLOW (YELLOW); GLUCOSE,URINE NEGATIVE (NEGATIVE); KETONES,URINE NEGATIVE (NEGATIVE); LEUKOCYTE ESTERASE ,URINE 1+ (NEGATIVE); NITRITE, URINE NEGATIVE (NEGATIVE); PROTEIN URINE NEGATIVE (NEGATIVE); UROBILINOGEN,URINE 0.2 (0.2-1.0)
[2017-07-02 22:37] LABS: OPIATE, URINE POSITIVE (NEG <=100)
[2017-07-02 22:38] LABS: BARBITURATE, URINE NEGATIVE (NEG <=200); BENZODIAZEPINE, URINE POSITIVE (NEG <=150); CANNABINOID, URINE NEGATIVE (NEG <=50); COCAINE, URINE NEGATIVE (NEG <=150); METHAMPHETAMINES SCREEN,URINE NEGATIVE (NEG <=500); PHENCYCLIDINE SCREEN,URINE NEGATIVE (NEG <=25); UR TRICYCLIC ANTIDEPRESSANTS NEGATIVE (NEG <=300); URINE AMPHETAMINE NEGATIVE (NEG <=500); URINE METHADONE NEGATIVE (NEG <=200); URINE OXYCODONE SCREEN NEGATIVE (NEG <=100); URINE PROPOXYPHENE SCREEN NEGATIVE (NEG <=300)
[2017-07-02 22:43] LABS: BACTERIA,URINE MODERATE /HPF (None Seen); RBC,URINE 0-3 /HPF (0-3)
[2017-07-02] MEDS ORDERED: NITROGLYCERIN 0.4 MG TAB.SUBL SL PRN (23:15)
[2017-07-02] MEDS ORDERED: MILK OF MAGNESIA 30 ML UDC PO PRN (23:15)
[2017-07-02] MEDS ORDERED: LevALBUTEROL HCL 1.25 MG/0.5 ML *CONC.* VIAL.NEB (XOPENEX CONC.) INH PRN (23:30)
[2017-07-02] MEDS ORDERED: LACOSAMIDE 100 MG TABLET PO SCH (23:45)
[2017-07-03] VITALS: BP_SYST 96
[2017-07-03] MEDS ORDERED: levETIRAcetam 500 MG TABLET PO ONE (01:15)
[2017-07-03] MEDS ORDERED: DIVALPROEX SODIUM 250 MG TABLET(DEPAKOTE) PO ONE (01:15)
[2017-07-03] MEDS ORDERED: OXYCODONE/ACETAMINOPHEN 5-325 TABLET PO ONE (01:30)
[2017-07-03 04:48] VITALS: BP_SYST 96
[2017-07-03 08:29] VITALS: BP_SYST 93
[2017-07-03] MEDS ORDERED: LACOSAMIDE 100 MG TABLET PO SCH (09:00)
[2017-07-03] MEDS ORDERED: DIVALPROEX SODIUM 250 MG TABLET(DEPAKOTE) PO SCH (09:00)
[2017-07-03] MEDS ORDERED: OXYCODONE/ACETAMINOPHEN 5-325 TABLET PO SCH (09:00)
[2017-07-03] MEDS: levETIRAcetam 500 MG TABLET PO SCH ×2 (09:30→20:38)
[2017-07-03] MEDS: OXYCODONE/ACETAMINOPHEN 5-325 TABLET PO PRN ×3 (11:51→22:46)
[2017-07-03] MEDS: KCL 20 mEq in D5NS 1000 mL 1,000 ML IV SCH ×2 (11:52→20:37)
[2017-07-03 12:11] VITALS: BP_SYST 126
[2017-07-03] MEDS: DIVALPROEX SODIUM 500 MG TABLET( DEPAKOTE) PO SCH ×2 (15:05→20:38)
[2017-07-03 16:32] VITALS: BP_SYST 95
[2017-07-03] MEDS: LACOSAMIDE 100 MG TABLET PO SCH (20:37)
[2017-07-04 00:03] VITALS: BP_SYST 124
[2017-07-04] MEDS ORDERED: KETOROLAC TROMETHAMINE 30 MG VIAL IVP PRN (00:45)
[2017-07-04] MEDS: KETOROLAC TROMETHAMINE 30 MG VIAL IVP PRN ×4 (01:25→21:51)
[2017-07-04] MEDS: OXYCODONE/ACETAMINOPHEN 5-325 TABLET PO PRN ×4 (04:39→23:25)
[2017-07-04] MEDS: KCL 20 mEq in D5NS 1000 mL 1,000 ML IV SCH (05:07)
[2017-07-04 07:29] LABS: ANION GAP 7 (5-15); CALCIUM 8.2 mg/dL (8.4-11.0); CHLORIDE 109 mmol/L (98-107); CREATININE 0.72 mg/dL (0.55-1.30); GLUCOSE 96 mg/dL (70-99); SODIUM SERUM 141 mmol/L (136-145); UREA NITROGEN, BLOOD 8 mg/dL (8-21)
[2017-07-04 07:31] LABS: GFR AFRICAN AMERICAN 154 mL/min (>90); PROTHROMBIN TIME 10.1 SECS (9.5-12.5)
[2017-07-04 07:38] LABS: PHOSPHORUS 3.6 mg/dL (2.7-4.5)
[2017-07-04 07:55] LABS: BASOPHILS % (AUTO) 0.7 % (0.0-2.0); EOSINOPHILS # (AUTO) 0.1 K/uL (0.0-0.4); EOSINOPHILS % (AUTO) 1.9 % (0.0-4.0); HEMATOCRIT 31.1 % (36-54); HEMOGLOBIN 10.2 g/dL (14.0-18.0); LYMPHOCYTES # (AUTO) 1.6 K/uL (1.0-5.5); LYMPHOCYTES % (AUTO) 42.5 % (20.5-51.5); MEAN CORPUSCULAR HEMOGLOBIN 26 pg (27-31); MEAN CORPUSCULAR HGB CONC 33 % (32-36); MEAN CORPUSCULAR VOLUME 80 fL (79.0-98.0); MONOCYTES # (AUTO) 0.4 K/uL (0.0-1.0); MONOCYTES % (AUTO) 9.3 % (1.7-9.3); NEUTROPHILS # (AUTO) 1.7 K/uL (1.8-7.7); NEUTROPHILS % (AUTO) 45.6 % (40.0-70.0); PLATELET COUNT (AUTO) 298 K/uL (130-430); RED BLOOD CELL COUNT(AUTO) 3.87 MIL/uL (4.2-6.2); RED CELL DISTRIBUTION WIDTH 17.9 % (9.0-15.0); WHITE BLOOD COUNT (AUTO) 3.8 K/uL (4.8-10.8)
[2017-07-04 07:59] LABS: CHOLESTEROL 192 mg/dL (<200); HDL CHOLESTEROL 46 mg/dL (>45); LDL CHOLESTEROL 105 mg/dL (<100); TRIGLYCERIDES 236 mg/dL (30-150)
[2017-07-04] MEDS ORDERED: MAGNESIUM CITRATE 300 ML ORAL SOLUTION PO ONE (08:00)
[2017-07-04] MEDS: levETIRAcetam 500 MG TABLET PO SCH ×2 (08:14→21:50)
[2017-07-04] MEDS: DIVALPROEX SODIUM 500 MG TABLET( DEPAKOTE) PO SCH ×3 (08:14→21:50)
[2017-07-04] MEDS: LACOSAMIDE 100 MG TABLET PO SCH ×2 (08:15→21:50)
[2017-07-04 08:44] VITALS: BP_SYST 127
[2017-07-04 12:42] VITALS: BP_SYST 128
[2017-07-04 16:45] VITALS: BP_SYST 159
[2017-07-04] MEDS ORDERED: BISACODYL 5 MG TABLET.DR (DULCOLAX) PO ONE (17:00)
[2017-07-04] MEDS ORDERED: GOLYTELY / COLYTE SOLUTION 4 LITERS PO ONE (18:00)
[2017-07-04 20:00] VITALS: BP_SYST 161
[2017-07-04 23:39] VITALS: BP_SYST 137
[2017-07-05] MEDS: KETOROLAC TROMETHAMINE 30 MG VIAL IVP PRN (04:12)
[2017-07-05] MEDS: OXYCODONE/ACETAMINOPHEN 5-325 TABLET PO PRN (05:37)
[2017-07-05] MEDS ORDERED: SIMETHICONE 40 MG/0.6 ML ML ONE (07:16)
[2017-07-05 08:07] VITALS: BP_SYST 134
[2017-07-05] MEDS: DIVALPROEX SODIUM 500 MG TABLET( DEPAKOTE) PO SCH ×3 (08:16→22:23)
[2017-07-05] MEDS: LACOSAMIDE 100 MG TABLET PO SCH ×2 (08:16→22:24)
[2017-07-05] MEDS: levETIRAcetam 500 MG TABLET PO SCH ×2 (08:16→22:24)
[2017-07-05] MEDS: MIDAZOLAM HCL 5 MG/5 ML VIAL ONE ×4 (10:44→10:50)
[2017-07-05] MEDS: MEPERIDINE HCL/PF 100 MG/ML AMP ONE ×3 (10:44→11:02)
[2017-07-05] MEDS ORDERED: PANTOPRAZOLE SODIUM 40 MG TAB PO ONE (11:15)
[2017-07-05] MEDS: OXYCODONE/ACETAMINOPHEN *10*mg/325 mg TABLET PO PRN ×2 (14:59→20:48)
[2017-07-05 16:34] VITALS: BP_SYST 136
[2017-07-05 20:11] VITALS: BP_SYST 132
[2017-07-06] MEDS: OXYCODONE/ACETAMINOPHEN *10*mg/325 mg TABLET PO PRN ×4 (02:52→21:01)
[2017-07-06 04:21] VITALS: BP_SYST 139
[2017-07-06 06:39] LABS: BASOPHILS % (AUTO) 0.5 % (0.0-2.0); EOSINOPHILS # (AUTO) 0.1 K/uL (0.0-0.4); EOSINOPHILS % (AUTO) 2.9 % (0.0-4.0); HEMATOCRIT 32.8 % (36-54); HEMOGLOBIN 10.5 g/dL (14.0-18.0); LYMPHOCYTES # (AUTO) 1.3 K/uL (1.0-5.5); LYMPHOCYTES % (AUTO) 35.1 % (20.5-51.5); MEAN CORPUSCULAR HEMOGLOBIN 26 pg (27-31); MEAN CORPUSCULAR HGB CONC 32 % (32-36); MEAN CORPUSCULAR VOLUME 80 fL (79.0-98.0); MONOCYTES # (AUTO) 0.3 K/uL (0.0-1.0); MONOCYTES % (AUTO) 8.2 % (1.7-9.3); NEUTROPHILS # (AUTO) 1.9 K/uL (1.8-7.7); NEUTROPHILS % (AUTO) 53.3 % (40.0-70.0); PLATELET COUNT (AUTO) 279 K/uL (130-430); RED BLOOD CELL COUNT(AUTO) 4.12 MIL/uL (4.2-6.2); RED CELL DISTRIBUTION WIDTH 17.2 % (9.0-15.0); WHITE BLOOD COUNT (AUTO) 3.6 K/uL (4.8-10.8)
[2017-07-06 06:46] LABS: ALBUMIN 3.3 g/dL (3.4-4.8); CALCIUM 8.5 mg/dL (8.4-11.0); CREATININE 0.91 mg/dL (0.55-1.30); POTASSIUM 3.7 mmol/L (3.5-5.1); TOTAL BILIRUBIN 0.4 mg/dL (0.0-1.0)
[2017-07-06 08:41] VITALS: BP_SYST 142
[2017-07-06] MEDS: PANTOPRAZOLE SODIUM 40 MG TAB PO SCH (08:56)
[2017-07-06 09:44] VITALS: BP_SYST 142
[2017-07-06] MEDS: DIVALPROEX SODIUM 500 MG TABLET( DEPAKOTE) PO SCH ×3 (10:08→21:48)
[2017-07-06] MEDS: levETIRAcetam 500 MG TABLET PO SCH ×2 (10:08→21:48)
[2017-07-06] MEDS: LACOSAMIDE 100 MG TABLET PO SCH ×2 (10:08→21:48)
[2017-07-06 11:45] VITALS: BP_SYST 145
[2017-07-06 15:36] VITALS: BP_SYST 134
[2017-07-06 20:00] VITALS: BP_SYST 143
[2017-07-07 01:06] VITALS: BP_SYST 140
[2017-07-07] MEDS: OXYCODONE/ACETAMINOPHEN *10*mg/325 mg TABLET PO PRN ×4 (03:06→21:41)
[2017-07-07 08:26] VITALS: BP_SYST 131
[2017-07-07] MEDS: PANTOPRAZOLE SODIUM 40 MG TAB PO SCH (09:14)
[2017-07-07] MEDS: LACOSAMIDE 100 MG TABLET PO SCH ×2 (10:05→20:51)
[2017-07-07] MEDS: DIVALPROEX SODIUM 500 MG TABLET( DEPAKOTE) PO SCH ×3 (10:05→20:51)
[2017-07-07] MEDS: levETIRAcetam 500 MG TABLET PO SCH ×2 (10:05→20:51)
[2017-07-07 12:33] VITALS: BP_SYST 132
[2017-07-07 16:33] VITALS: BP_SYST 132
[2017-07-07 19:50] VITALS: BP_SYST 142
[2017-07-07 23:52] VITALS: BP_SYST 145
[2017-07-08] MEDS: OXYCODONE/ACETAMINOPHEN *10*mg/325 mg TABLET PO PRN ×4 (03:38→21:30)
[2017-07-08 03:39] VITALS: BP_SYST 141
[2017-07-08 08:04] VITALS: BP_SYST 133
[2017-07-08] MEDS: DIVALPROEX SODIUM 500 MG TABLET( DEPAKOTE) PO SCH ×3 (08:25→22:00)
[2017-07-08] MEDS: PANTOPRAZOLE SODIUM 40 MG TAB PO SCH (08:26)
[2017-07-08] MEDS: levETIRAcetam 500 MG TABLET PO SCH ×2 (08:26→22:00)
[2017-07-08] MEDS: LACOSAMIDE 100 MG TABLET PO SCH ×2 (08:26→22:00)
[2017-07-08 12:18] VITALS: BP_SYST 129
[2017-07-08 16:07] VITALS: BP_SYST 133
[2017-07-08 21:40] VITALS: BP_SYST 139
[2017-07-09 00:35] VITALS: BP_SYST 126
[2017-07-09] MEDS: OXYCODONE/ACETAMINOPHEN *10*mg/325 mg TABLET PO PRN ×2 (04:07→09:53)
[2017-07-09] MEDS: DIVALPROEX SODIUM 500 MG TABLET( DEPAKOTE) PO SCH (08:09)
[2017-07-09] MEDS: levETIRAcetam 500 MG TABLET PO SCH (08:09)
[2017-07-09] MEDS: LACOSAMIDE 100 MG TABLET PO SCH (08:09)
[2017-07-09] MEDS: PANTOPRAZOLE SODIUM 40 MG TAB PO SCH (08:09)
[2017-07-09 08:25] VITALS: BP_SYST 132
[2017-07-09 09:56] VITALS: BP_SYST 132
[2017-07-09 12:21] VITALS: BP_SYST 121
[2017-07-09 13:18] VITALS: BP_SYST 121
== END 2017-07-09 14:30 | DRG 241 ==
LOC: SED 17:37 → STU 20:24 → SMU 07-05 15:17
PROVIDERS: ADMIT Family Medicine; ATTEND Family Medicine
PROC: 0DBN8ZZ Excision of Sigmoid Colon, Via Natural or Artificial Opening Endoscopic (ICD-10-PCS; 2017-07-05)
PROC: 0DB58ZX Excision of Esophagus, Via Natural or Artificial Opening Endoscopic, Diagnostic (ICD-10-PCS; principal; 2017-07-05 11:55)
PROC: 0DB68ZX Excision of Stomach, Via Natural or Artificial Opening Endoscopic, Diagnostic (ICD-10-PCS; 2017-07-05 11:55)
DX: K29.70 Gastritis, unspecified, without bleeding (principal); G40.919 Epilepsy, unspecified, intractable, without status epilepticus; I95.9 Hypotension, unspecified; I10 Essential (primary) hypertension; D64.9 Anemia, unspecified; E11.9 Type 2 diabetes mellitus without complications; K62.5 Hemorrhage of anus and rectum; R07.89 Other chest pain; D12.5 Benign neoplasm of sigmoid colon; N40.0 Benign prostatic hyperplasia without lower urinary tract symptoms; H54.61 Unqualified visual loss, right eye, normal vision left eye; G89.4 Chronic pain syndrome; J45.909 Unspecified asthma, uncomplicated; K21.0 Gastro-esophageal reflux disease with esophagitis; K44.9 Diaphragmatic hernia without obstruction or gangrene; M45.9 Ankylosing spondylitis of unspecified sites in spine; Z87.891 Personal history of nicotine dependence; Z95.0 Presence of cardiac pacemaker; Z88.1 Allergy status to other antibiotic agents; K64.9 Unspecified hemorrhoids
CPT/HCPCS: 36415; 43239; 45380; 71045; 72131; 80048; 80053; 80061; 80164-TC; 80307; 81000-TC; 82542; 82550-TC; 83735-TC; 83880; 84100-TC; 84484; 85025; 85379; 85610-TC; 85730-TC; 87081; 87086; 88305; 88312; 88313; 93005; 94640; 94760; 96361; 96374; 97110-GP; 97116-GP; 97530-GP; 99285; J1885; J2175; J2250; J2310; J7030

== ENCOUNTER 2017-09-16 20:15 | Inpatient (IN) | payer MEDICAID ==
[~2017-09-16] VITALS: Ht 167.6 cm; Wt 89.8 kg
[~2017-09-16 20:15] MED LIST changes: -DIVA250T34 PO; +LACO100T2 PO; -LACO10SO PO; -LEVE1000 PO; +LEVE250T2 PO; +ONDA4TAB22 SL; +OXCA150T5 PO; +OXYC-133 PO
[2017-09-16 20:51] VITALS: BP_SYST 157
[2017-09-16 22:58] LABS: BASOPHILS % (AUTO) 0.6 % (0.0-2.0); EOSINOPHILS % (AUTO) 0.6 % (0.0-4.0); HEMATOCRIT 34.5 % (36-54); HEMOGLOBIN 11.7 g/dL (14.0-18.0); LYMPHOCYTES % (AUTO) 14.2 % (20.5-51.5); MEAN CORPUSCULAR HEMOGLOBIN 27 pg (27-31); MEAN CORPUSCULAR HGB CONC 34 % (32-36); MEAN CORPUSCULAR VOLUME 81 fL (79.0-98.0); MONOCYTES # (AUTO) 0.5 K/uL (0.0-1.0); MONOCYTES % (AUTO) 6.9 % (1.7-9.3); NEUTROPHILS # (AUTO) 5.7 K/uL (1.8-7.7); NEUTROPHILS % (AUTO) 77.7 % (40.0-70.0); PLATELET COUNT (AUTO) 285 K/uL (130-430); RED BLOOD CELL COUNT(AUTO) 4.26 MIL/uL (4.2-6.2); RED CELL DISTRIBUTION WIDTH 16.6 % (9.0-15.0); WHITE BLOOD COUNT (AUTO) 7.2 K/uL (4.8-10.8)
[2017-09-16 23:03] LABS: CREATININE 0.9 mg/dL (0.55-1.30); POTASSIUM 3.4 mmol/L (3.5-5.1)
[2017-09-16 23:03] LABS: BILIRUBIN,URINE NEGATIVE (NEGATIVE); BLOOD, URINE 3+ (NEGATIVE); CLARITY/URINE SL HAZY (CLEAR); COLOR,URINE YELLOW (YELLOW); GLUCOSE,URINE NEGATIVE (NEGATIVE); KETONES,URINE NEGATIVE (NEGATIVE); LEUKOCYTE ESTERASE ,URINE 1+ (NEGATIVE); NITRITE, URINE NEGATIVE (NEGATIVE); PROTEIN URINE 2+ (NEGATIVE); UROBILINOGEN,URINE 0.2 (0.2-1.0)
[2017-09-16 23:09] LABS: ALBUMIN 4.2 g/dL (3.4-4.8); TOTAL BILIRUBIN 0.4 mg/dL (0.0-1.0)
[2017-09-16 23:25] LABS: BACTERIA,URINE MANY /HPF (None Seen); RBC,URINE 20-50 /HPF (0-3)
[2017-09-16] MEDS ORDERED: MORPHINE 4 MG/ML INJ. SYRINGE IVP ONE (23:30)
[2017-09-16] MEDS ORDERED: NACL 0.9% 1,000 ML IV ONE (23:30)
[2017-09-16] MEDS ORDERED: cefTRIAXone 1 GM IVPB PREMIX 50 ML IV ONE (23:30)
[2017-09-16] MEDS ORDERED: ONDANSETRON HCL 4 MG/2 ML VIAL IVP PRN (23:45)
[2017-09-17] VITALS (7 sets, daily range): BP systolic 114–158
[2017-09-17] MEDS: MORPHINE 2 MG/ML INJ. SYRINGE IVP PRN ×4 (00:33→17:04)
[2017-09-17] MEDS: D5NS 1,000 ML IV SCH ×3 (01:01→18:58)
[2017-09-17] MEDS: MORPHINE 4 MG/ML INJ. SYRINGE IVP PRN ×4 (01:34→21:13)
[2017-09-17] MEDS ORDERED: BISACODYL 10 MG/SUPPOSITORY RC PRN (08:30)
[2017-09-17] MEDS ORDERED: levETIRAcetam 500 MG in NS 100 ML IV ONE (09:30)
[2017-09-17] MEDS: LORazepam 2 MG/ML VIAL IVP PRN ×2 (10:44→21:20)
[2017-09-17 11:39] LABS: BASOPHILS % (AUTO) 0.3 % (0.0-2.0); EOSINOPHILS # (AUTO) 0.1 K/uL (0.0-0.4); EOSINOPHILS % (AUTO) 0.8 % (0.0-4.0); HEMATOCRIT 32.9 % (36-54); LYMPHOCYTES # (AUTO) 1.4 K/uL (1.0-5.5); LYMPHOCYTES % (AUTO) 20.5 % (20.5-51.5); MEAN CORPUSCULAR HEMOGLOBIN 27 pg (27-31); MEAN CORPUSCULAR HGB CONC 33 % (32-36); MEAN CORPUSCULAR VOLUME 80 fL (79.0-98.0); MONOCYTES # (AUTO) 0.5 K/uL (0.0-1.0); MONOCYTES % (AUTO) 7.4 % (1.7-9.3); NEUTROPHILS # (AUTO) 4.9 K/uL (1.8-7.7); PLATELET COUNT (AUTO) 293 K/uL (130-430); RED BLOOD CELL COUNT(AUTO) 4.11 MIL/uL (4.2-6.2); RED CELL DISTRIBUTION WIDTH 16.6 % (9.0-15.0); WHITE BLOOD COUNT (AUTO) 6.9 K/uL (4.8-10.8)
[2017-09-17 11:49] LABS: CALCIUM 8.5 mg/dL (8.4-11.0); CREATININE 0.75 mg/dL (0.55-1.30); POTASSIUM 3.5 mmol/L (3.5-5.1)
[2017-09-17 11:55] LABS: ALBUMIN 3.3 g/dL (3.4-4.8); TOTAL BILIRUBIN 0.5 mg/dL (0.0-1.0)
[2017-09-17 19:15] LABS: BARBITURATE, URINE NEGATIVE (NEG <=200)
[2017-09-17 19:16] LABS: BENZODIAZEPINE, URINE POSITIVE (NEG <=150); CANNABINOID, URINE NEGATIVE (NEG <=50); COCAINE, URINE NEGATIVE (NEG <=150); METHAMPHETAMINES SCREEN,URINE POSITIVE (NEG <=500); OPIATE, URINE POSITIVE (NEG <=100); PHENCYCLIDINE SCREEN,URINE NEGATIVE (NEG <=25); UR TRICYCLIC ANTIDEPRESSANTS NEGATIVE (NEG <=300); URINE AMPHETAMINE NEGATIVE (NEG <=500); URINE METHADONE NEGATIVE (NEG <=200); URINE OXYCODONE SCREEN POSITIVE (NEG <=100); URINE PROPOXYPHENE SCREEN NEGATIVE (NEG <=300)
[2017-09-17] MEDS: LUBIPROSTONE 24 MCG CAPSULE PO SCH (21:17)
[2017-09-17] MEDS: levETIRAcetam 500 MG in NS 100 ML IV SCH (21:23)
[2017-09-18 00:40] VITALS: BP_SYST 123
[2017-09-18] MEDS: MORPHINE 4 MG/ML INJ. SYRINGE IVP PRN ×5 (04:13→20:16)
[2017-09-18] MEDS: D5NS 1,000 ML IV SCH ×2 (05:53→16:20)
[2017-09-18] MEDS: LORazepam 2 MG/ML VIAL IVP PRN ×3 (05:57→21:30)
[2017-09-18 08:00] VITALS: BP_SYST 119
[2017-09-18] MEDS: levETIRAcetam 500 MG in NS 100 ML IV SCH ×2 (08:21→21:32)
[2017-09-18] MEDS: LUBIPROSTONE 24 MCG CAPSULE PO SCH ×2 (08:21→21:30)
[2017-09-18 11:57] LABS: CALCIUM 8.5 mg/dL (8.4-11.0); CREATININE 0.64 mg/dL (0.55-1.30); POTASSIUM 3.6 mmol/L (3.5-5.1)
[2017-09-18 11:58] LABS: BASOPHILS % (AUTO) 0.7 % (0.0-2.0); EOSINOPHILS # (AUTO) 0.1 K/uL (0.0-0.4); EOSINOPHILS % (AUTO) 2.7 % (0.0-4.0); HEMATOCRIT 32.2 % (36-54); HEMOGLOBIN 10.7 g/dL (14.0-18.0); LYMPHOCYTES # (AUTO) 1.4 K/uL (1.0-5.5); LYMPHOCYTES % (AUTO) 26.5 % (20.5-51.5); MEAN CORPUSCULAR HEMOGLOBIN 27 pg (27-31); MEAN CORPUSCULAR HGB CONC 33 % (32-36); MEAN CORPUSCULAR VOLUME 80 fL (79.0-98.0); MONOCYTES # (AUTO) 0.4 K/uL (0.0-1.0); MONOCYTES % (AUTO) 6.9 % (1.7-9.3); NEUTROPHILS # (AUTO) 3.2 K/uL (1.8-7.7); NEUTROPHILS % (AUTO) 63.2 % (40.0-70.0); PLATELET COUNT (AUTO) 289 K/uL (130-430); RED CELL DISTRIBUTION WIDTH 16.3 % (9.0-15.0); WHITE BLOOD COUNT (AUTO) 5.1 K/uL (4.8-10.8)
[2017-09-18 12:02] LABS: ALBUMIN 3.1 g/dL (3.4-4.8); TOTAL BILIRUBIN 0.6 mg/dL (0.0-1.0)
[2017-09-18 12:25] VITALS: BP_SYST 125
[2017-09-18 16:25] VITALS: BP_SYST 128
[2017-09-18 19:00] VITALS: BP_SYST 118
[2017-09-18 20:00] VITALS: BP_SYST 118
[2017-09-18] MEDS ORDERED: BENZOCAINE/MENTHOL 1 EACH LOZENGE MM PRN (23:00)
[2017-09-19 00:17] VITALS: BP_SYST 146
[2017-09-19] MEDS: MORPHINE 4 MG/ML INJ. SYRINGE IVP PRN ×6 (00:35→20:50)
[2017-09-19] MEDS: D5NS 1,000 ML IV SCH ×2 (01:45→11:41)
[2017-09-19] MEDS: LORazepam 2 MG/ML VIAL IVP PRN ×5 (04:27→20:49)
[2017-09-19 08:25] VITALS: BP_SYST 135
[2017-09-19] MEDS: LUBIPROSTONE 24 MCG CAPSULE PO SCH ×3 (08:34→21:00)
[2017-09-19] MEDS: levETIRAcetam 500 MG in NS 100 ML IV SCH ×2 (09:22→20:49)
[2017-09-19 12:11] VITALS: BP_SYST 109
[2017-09-19 12:38] VITALS: BP_SYST 123
[2017-09-19 14:42] VITALS: BP_SYST 137
[2017-09-19] MEDS ORDERED: GASTROGRAFIN 120 ML ONE (15:22)
[2017-09-19 15:24] LABS: CALCIUM 8.6 mg/dL (8.4-11.0); CREATININE 0.64 mg/dL (0.55-1.30); POTASSIUM 3.8 mmol/L (3.5-5.1)
[2017-09-19 15:29] LABS: ALBUMIN 3.2 g/dL (3.4-4.8); TOTAL BILIRUBIN 0.6 mg/dL (0.0-1.0)
[2017-09-19 17:38] VITALS: BP_SYST 112
[2017-09-20 00:06] VITALS: BP_SYST 109
[2017-09-20] MEDS: MORPHINE 4 MG/ML INJ. SYRINGE IVP PRN ×3 (01:13→10:16)
[2017-09-20] MEDS: LORazepam 2 MG/ML VIAL IVP PRN ×3 (01:14→10:17)
[2017-09-20] MEDS: D5NS 1,000 ML IV SCH (01:15)
[2017-09-20 07:50] VITALS: BP_SYST 116
[2017-09-20] MEDS: LUBIPROSTONE 24 MCG CAPSULE PO SCH (08:41)
[2017-09-20] MEDS: levETIRAcetam 500 MG in NS 100 ML IV SCH (08:42)
[2017-09-20 10:17] VITALS: BP_SYST 134
[2017-09-20 12:30] VITALS: BP_SYST 134
[2017-09-20 12:51] VITALS: BP_SYST 134
== END 2017-09-20 13:29 | disposition home or self-care (01) | DRG 254 ==
LOC: SED 20:15 → SMU 23:37
PROVIDERS: ADMIT Internal Medicine Hospice and Palliative Medicine; ATTEND Internal Medicine Hospice and Palliative Medicine
DX: K59.03 Drug induced constipation (principal); L97.519 Non-pressure chronic ulcer of other part of right foot with unspecified severity; N20.0 Calculus of kidney; G89.29 Other chronic pain; G40.909 Epilepsy, unspecified, not intractable, without status epilepticus; T40.2X5A Adverse effect of other opioids, initial encounter; H35.30 Unspecified macular degeneration; Z87.440 Personal history of urinary (tract) infections; Y92.89 Other specified places as the place of occurrence of the external cause; Z95.0 Presence of cardiac pacemaker
CPT/HCPCS: 36415; 71045; 74250-TC; 80053; 80307; 81000-TC; 83605; 83690-TC; 85025; 87040-TC; 87081; 87086; 87186-TC; 96361; 96365; 96375; 99285; J0696; J1953; J2060; J2270; J2405; J7030; J7042; Q9963

== ENCOUNTER 2017-10-04 11:47 | Emergency (ER) | payer MEDICAID ==
[~2017-10-04] VITALS: Ht 167.6 cm; Wt 90.7 kg
[2017-10-04 12:11] VITALS: BP_SYST 133
[2017-10-04 13:44] LABS: BASOPHILS % (AUTO) 0.6 % (0.0-2.0); EOSINOPHILS % (AUTO) 0.4 % (0.0-4.0); HEMATOCRIT 34.3 % (36-54); HEMOGLOBIN 11.5 g/dL (14.0-18.0); LYMPHOCYTES # (AUTO) 1.2 K/uL (1.0-5.5); LYMPHOCYTES % (AUTO) 26.1 % (20.5-51.5); MEAN CORPUSCULAR HEMOGLOBIN 27 pg (27-31); MEAN CORPUSCULAR HGB CONC 34 % (32-36); MEAN CORPUSCULAR VOLUME 80 fL (79.0-98.0); MONOCYTES # (AUTO) 0.3 K/uL (0.0-1.0); MONOCYTES % (AUTO) 5.7 % (1.7-9.3); NEUTROPHILS # (AUTO) 3.1 K/uL (1.8-7.7); NEUTROPHILS % (AUTO) 67.2 % (40.0-70.0); PLATELET COUNT (AUTO) 341 K/uL (130-430); RED BLOOD CELL COUNT(AUTO) 4.27 MIL/uL (4.2-6.2); RED CELL DISTRIBUTION WIDTH 15.7 % (9.0-15.0); WHITE BLOOD COUNT (AUTO) 4.6 K/uL (4.8-10.8)
[2017-10-04 13:49] LABS: CALCIUM 9.1 mg/dL (8.4-11.0); CREATININE 0.91 mg/dL (0.55-1.30); POTASSIUM 3.5 mmol/L (3.5-5.1)
[2017-10-04] MEDS ORDERED: MORPHINE 4 MG/ML INJ. SYRINGE IM ONE (14:30)
[2017-10-04 14:51] LABS: BILIRUBIN,URINE NEGATIVE (NEGATIVE); BLOOD, URINE 1+ (NEGATIVE); CLARITY/URINE HAZY (CLEAR); COLOR,URINE YELLOW (YELLOW); GLUCOSE,URINE NEGATIVE (NEGATIVE); KETONES,URINE NEGATIVE (NEGATIVE); LEUKOCYTE ESTERASE ,URINE 1+ (NEGATIVE); NITRITE, URINE POSITIVE (NEGATIVE); PROTEIN URINE 3+ (NEGATIVE); UROBILINOGEN,URINE 0.2 (0.2-1.0)
[2017-10-04 14:57] LABS: BACTERIA,URINE MANY /HPF (None Seen); MUCUS,URINE 1+ /LPF (None Seen); YEAST,URINE Moderate /HPF (None Seen)
[2017-10-04 17:01] VITALS: BP_SYST 140
== END 2017-10-04 15:41 | disposition home or self-care (01) ==
LOC: SED 11:47
DX: N39.0 Urinary tract infection, site not specified (principal); I10 Essential (primary) hypertension; E11.29 Type 2 diabetes mellitus with other diabetic kidney complication; N28.9 Disorder of kidney and ureter, unspecified; N40.0 Benign prostatic hyperplasia without lower urinary tract symptoms; Z96.89 Presence of other specified functional implants; Z88.1 Allergy status to other antibiotic agents; Z79.899 Other long term (current) drug therapy
CPT/HCPCS: 36415; 80048; 81000-TC; 85025; 87086; 87186-TC; 99284; J2270

== ENCOUNTER 2017-10-20 13:29 | Emergency (ER) | payer MEDICAID ==
[~2017-10-20] VITALS: Ht 167.6 cm; Wt 90.7 kg
[2017-10-20 13:34] VITALS: BP_SYST 164
--- NOTE | 2017-10-20 13:38 | NUR ---
Patient to ER bed 6 to gown for evaluation. Side rails up. Report given to Marquis DEJESUS.
[2017-10-20] MEDS ORDERED: NACL 0.9% 1,000 ML IV ONE (13:42)
[2017-10-20] MEDS ORDERED: MORPHINE 4 MG/ML INJ. SYRINGE IVP ONE ×3 (13:45→17:00)
--- NOTE | 2017-10-20 13:45 | NUR ---
Pt presents to ER for multiple complaints, pt reportedly had to remove his gonzalez catheter at home because it was "leaking". Pt also c/o headache and low back pain 12/25. Pt in no acute distress, speaking full sentences, AOX4, ambulatory.
[2017-10-20] MEDS ORDERED: DIPHENHYDRAMINE INJ 50 MG/ML VIAL IVP ONE (14:00)
[2017-10-20] MEDS ORDERED: ONDANSETRON HCL 4 MG/2 ML VIAL IVP ONE (14:00)
--- NOTE | 2017-10-20 14:01 | NUR ---
Radiology at bedside for xray.
--- NOTE | 2017-10-20 14:12 | NUR ---
# 22 gauge angiocath placed to r hand. Use of asceptic technique. Opsite placed over site. Blood return noted. Flushed with 10 cc of normal saline. No evidence of infiltration noted. Patient tolerated well.
--- NOTE | 2017-10-20 14:16 | NUR ---
Laboratory at bedside.
--- NOTE | 2017-10-20 14:50 | NUR ---
Patient transported to radiology via gurney, accompanied by rad staff.
--- NOTE | 2017-10-20 15:00 | NUR ---
# 16 FR Zavala catheter with use of sterile technique. Immediate return of 100 cc yellow urine noted. Bedside drainage bag placed below level of bladder. Urine sample collected and sent to lab. Pt tolerated procedure well.
--- NOTE | 2017-10-20 15:00 | NUR ---
Returned from radiology, back to [facility].
[2017-10-20 15:02] LABS: BASOPHILS % (AUTO) 1.2 % (0.0-2.0); EOSINOPHILS % (AUTO) 0.8 % (0.0-4.0); LYMPHOCYTES # (AUTO) 0.6 K/uL (1.0-5.5); MEAN CORPUSCULAR HEMOGLOBIN 27 pg (27-31); MEAN CORPUSCULAR HGB CONC 33 % (32-36); MEAN CORPUSCULAR VOLUME 81 fL (79.0-98.0); MONOCYTES # (AUTO) 0.2 K/uL (0.0-1.0); MONOCYTES % (AUTO) 8.4 % (1.7-9.3); NEUTROPHILS # (AUTO) 1.6 K/uL (1.8-7.7); NEUTROPHILS % (AUTO) 62.6 % (40.0-70.0); PLATELET COUNT (AUTO) 134 K/uL (130-430); RED BLOOD CELL COUNT(AUTO) 2.24 MIL/uL (4.2-6.2); RED CELL DISTRIBUTION WIDTH 15.5 % (9.0-15.0); WHITE BLOOD COUNT (AUTO) 2.4 K/uL (4.8-10.8)
[2017-10-20 15:11] LABS: INR 1.3 (0.80-1.20); PROTHROMBIN TIME 13.7 SECS (9.5-12.5)
[2017-10-20 15:12] LABS: ALANINE AMINOTRANSFERASE 9 U/L (12-78); ALBUMIN 1.6 g/dL (3.4-4.8); AMYLASE 28 U/L (0-100); ANION GAP 10 (5-15); ASPARTATE AMINOTRANSFERASE 13 U/L (10-37); LIPASE 58 U/L (73-393); SODIUM SERUM 147 mmol/L (136-145); TOTAL BILIRUBIN 0.2 mg/dL (0.0-1.0); UREA NITROGEN, BLOOD 4 mg/dL (8-21)
[2017-10-20 15:13] LABS: HEMATOCRIT 18.1 % (36-54)
--- NOTE | 2017-10-20 15:33 | NUR ---
Per Anastasia, laboratory, redraw on blood must be reordered. Dr. Griffin notified.
[2017-10-20 15:36] LABS: POTASSIUM 1.7 mmol/L (3.5-5.1)
[2017-10-20 15:37] LABS: CHLORIDE 123 mmol/L (98-107)
[2017-10-20 15:38] LABS: ALCOHOL, BLOOD < 3 mg/dL (<10); CALCIUM < 5.0 mg/dL (8.4-11.0); CREATININE < 0.20 mg/dL (0.55-1.30); GFR AFRICAN AMERICAN 675 mL/min (>90)
[2017-10-20 15:39] LABS: ACETAMINOPHEN 10 ug/mL (1-30)
[2017-10-20 15:40] LABS: VALPROIC ACID < 3 ug/mL (50-100)
[2017-10-20 15:45] LABS: GLUCOSE 46 mg/dL (70-99)
[2017-10-20 15:59] LABS: BASOPHILS % (AUTO) 0.5 % (0.0-2.0); EOSINOPHILS # (AUTO) 0.1 K/uL (0.0-0.4); EOSINOPHILS % (AUTO) 0.8 % (0.0-4.0); HEMATOCRIT 35.2 % (36-54); HEMOGLOBIN 11.7 g/dL (14.0-18.0); LYMPHOCYTES # (AUTO) 1.1 K/uL (1.0-5.5); LYMPHOCYTES % (AUTO) 16.6 % (20.5-51.5); MEAN CORPUSCULAR HEMOGLOBIN 27 pg (27-31); MEAN CORPUSCULAR HGB CONC 33 % (32-36); MEAN CORPUSCULAR VOLUME 81 fL (79.0-98.0); MONOCYTES # (AUTO) 0.4 K/uL (0.0-1.0); MONOCYTES % (AUTO) 5.4 % (1.7-9.3); NEUTROPHILS % (AUTO) 76.7 % (40.0-70.0); PLATELET COUNT (AUTO) 252 K/uL (130-430); RED BLOOD CELL COUNT(AUTO) 4.33 MIL/uL (4.2-6.2); RED CELL DISTRIBUTION WIDTH 15.1 % (9.0-15.0); WHITE BLOOD COUNT (AUTO) 6.6 K/uL (4.8-10.8)
[2017-10-20 16:01] LABS: BILIRUBIN,URINE NEGATIVE (NEGATIVE); BLOOD, URINE NEGATIVE (NEGATIVE); CLARITY/URINE SL HAZY (CLEAR); COLOR,URINE YELLOW (YELLOW); GLUCOSE,URINE NEGATIVE (NEGATIVE); KETONES,URINE NEGATIVE (NEGATIVE); LEUKOCYTE ESTERASE ,URINE 1+ (NEGATIVE); NITRITE, URINE NEGATIVE (NEGATIVE); PROTEIN URINE TRACE (NEGATIVE); UROBILINOGEN,URINE 0.2 (0.2-1.0)
[2017-10-20] MEDS ORDERED: POTASSIUM CHLORIDE 20 MEQ/PKT PACKET PO ONE (16:15)
[2017-10-20 16:18] LABS: CREATININE 0.82 mg/dL (0.55-1.30); POTASSIUM 3.9 mmol/L (3.5-5.1)
--- NOTE | 2017-10-20 16:22 | NUR ---
Medication administered. Pt tolerated well. No adverse reactions noted. Pt requested to have informed of pt status. [facility], pt's , was called and would like to be contacted for any change in pt's condition.
[2017-10-20 16:23] LABS: ALBUMIN 3.9 g/dL (3.4-4.8); TOTAL BILIRUBIN 0.4 mg/dL (0.0-1.0)
[2017-10-20 16:27] LABS: BARBITURATE, URINE NEGATIVE (NEG <=200); URINE AMPHETAMINE NEGATIVE (NEG <=500)
[2017-10-20 16:28] LABS: BENZODIAZEPINE, URINE NEGATIVE (NEG <=150); CANNABINOID, URINE NEGATIVE (NEG <=50); COCAINE, URINE NEGATIVE (NEG <=150); METHAMPHETAMINES SCREEN,URINE NEGATIVE (NEG <=500); OPIATE, URINE POSITIVE (NEG <=100); PHENCYCLIDINE SCREEN,URINE NEGATIVE (NEG <=25); UR TRICYCLIC ANTIDEPRESSANTS NEGATIVE (NEG <=300); URINE METHADONE NEGATIVE (NEG <=200); URINE OXYCODONE SCREEN POSITIVE (NEG <=100); URINE PROPOXYPHENE SCREEN NEGATIVE (NEG <=300)
[2017-10-20] MEDS ORDERED: cefTRIAXone 1 GM IVPB PREMIX 50 ML IV ONE (16:45)
[2017-10-20 16:52] LABS: WBC,URINE 50-80 /HPF (0-3)
[2017-10-20 16:53] LABS: BACTERIA,URINE FEW /HPF (None Seen); MUCUS,URINE 1+ /LPF (None Seen)
--- NOTE | 2017-10-20 17:00 | NUR ---
Pt refused to have blood cultures and lactic acid drawn. Dr. Griffin notified.
--- NOTE | 2017-10-20 17:17 | NUR ---
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 Dr. Griffin aware and is clearing pt for discharge. Pt states "My cannot take care of me at home. I think I need to be admitted." Dr. Griffin notified and to go to bedside. Addendum: 10/20/17 at 1723 by [email or web address] BP 166/113
--- NOTE | 2017-10-20 17:18 | NUR ---
Morphine and antibiotics administered. Pt tolerated well. no adverse reactions noted.
--- NOTE | 2017-10-20 17:19 | NUR ---
Dr. Griffin at bedside explaining to pt why pt is not being admitted into hospital. Pt understands.
--- NOTE | 2017-10-20 17:41 | NUR ---
Went to change gonzalez for a leg bag and pt states "I change my bag myself." I asked repeatedly and pt claims is able to change it himself. Pt was given leg bag and was given privacy. Dr Griffin is aware
--- NOTE | 2017-10-20 17:47 | NUR ---
Called [facility] to come and order picker pt, states will leave now.
[2017-10-20 18:15] VITALS: BP_SYST 149
--- NOTE | 2017-10-20 18:15 | NUR ---
Patient given written and verbal discharge instructions and verbalizes understanding. ER MD Griffin discussed with patient the results and treatment provided. Patient in stable condition. ID arm band removed. IV catheter removed intact and dressing applied, no active bleeding. Rx of DEMETRA Metz given. Patient educated on pain management and to follow up with PMD. Pain Scale 0. Opportunity for questions provided and answered. Medication side effect fact sheet provided.
== END 2017-10-20 18:15 | disposition home or self-care (01) ==
LOC: SED 13:29
DX: D64.9 Anemia, unspecified (principal); N39.0 Urinary tract infection, site not specified; G89.29 Other chronic pain; F19.10 Other psychoactive substance abuse, uncomplicated; F11.10 Opioid abuse, uncomplicated; E11.29 Type 2 diabetes mellitus with other diabetic kidney complication; N28.9 Disorder of kidney and ureter, unspecified; N40.0 Benign prostatic hyperplasia without lower urinary tract symptoms; I10 Essential (primary) hypertension; Z86.69 Personal history of other diseases of the nervous system and sense organs; Z95.0 Presence of cardiac pacemaker; Z88.1 Allergy status to other antibiotic agents; Z79.899 Other long term (current) drug therapy
CPT/HCPCS: 36415; 51702; 70450; 71045; 80053; 80164; 80307; 81000; 82150; 82550; 83690; 85025; 85610; 85730; 86886; 86900; 86901; 87081; 87086; 93005; 96365; 96375; 96376; 99285; G0480; G0481; G0482; J0696; J1200; J2270; J2405; J7030; 96366

== ENCOUNTER 2017-10-29 23:04 | Emergency (ER) | payer MEDICAID ==
[~2017-10-29] VITALS: Ht 165.1 cm; Wt 81.6 kg
[2017-10-29] MEDS ORDERED: NACL 0.9% 1,000 ML IV ONE (23:08)
[2017-10-29 23:25] VITALS: BP_SYST 150
[2017-10-29 23:53] LABS: BILIRUBIN,URINE NEGATIVE (NEGATIVE); BLOOD, URINE NEGATIVE (NEGATIVE); CLARITY/URINE CLEAR (CLEAR); GLUCOSE,URINE NEGATIVE (NEGATIVE); KETONES,URINE NEGATIVE (NEGATIVE); LEUKOCYTE ESTERASE ,URINE NEGATIVE (NEGATIVE); NITRITE, URINE NEGATIVE (NEGATIVE); PH,URINE 5.5 (5.0-8.0); PROTEIN URINE NEGATIVE (NEGATIVE); UROBILINOGEN,URINE 0.2 (0.2-1.0)
[2017-10-29 23:55] LABS: COLOR,URINE STRAW (YELLOW)
[2017-10-30 00:08] LABS: BASOPHILS % (AUTO) 0.8 % (0.0-2.0); EOSINOPHILS # (AUTO) 0.1 K/uL (0.0-0.4); EOSINOPHILS % (AUTO) 1.4 % (0.0-4.0); HEMATOCRIT 37.4 % (36-54); HEMOGLOBIN 12.5 g/dL (14.0-18.0); LYMPHOCYTES % (AUTO) 36.2 % (20.5-51.5); MEAN CORPUSCULAR HEMOGLOBIN 28 pg (27-31); MEAN CORPUSCULAR HGB CONC 33 % (32-36); MEAN CORPUSCULAR VOLUME 82 fL (79.0-98.0); MONOCYTES # (AUTO) 0.4 K/uL (0.0-1.0); MONOCYTES % (AUTO) 7.4 % (1.7-9.3); NEUTROPHILS # (AUTO) 2.9 K/uL (1.8-7.7); NEUTROPHILS % (AUTO) 54.2 % (40.0-70.0); PLATELET COUNT (AUTO) 278 K/uL (130-430); RED BLOOD CELL COUNT(AUTO) 4.54 MIL/uL (4.2-6.2); RED CELL DISTRIBUTION WIDTH 15.5 % (9.0-15.0); WHITE BLOOD COUNT (AUTO) 5.4 K/uL (4.8-10.8)
[2017-10-30 00:12] LABS: CALCIUM 8.7 mg/dL (8.4-11.0); CREATININE 0.83 mg/dL (0.55-1.30); POTASSIUM 3.4 mmol/L (3.5-5.1)
[2017-10-30 00:18] LABS: ALBUMIN 4.2 g/dL (3.4-4.8); TOTAL BILIRUBIN 0.6 mg/dL (0.0-1.0)
[2017-10-30 00:22] LABS: PROTHROMBIN TIME 10.2 SECS (9.5-12.5)
[2017-10-30 00:45] VITALS: BP_SYST 143
== END 2017-10-30 00:45 | disposition home or self-care (01) ==
LOC: SED 23:04
DX: R33.9 Retention of urine, unspecified (principal); K52.9 Noninfective gastroenteritis and colitis, unspecified; G89.29 Other chronic pain; I10 Essential (primary) hypertension; E11.9 Type 2 diabetes mellitus without complications; Z95.0 Presence of cardiac pacemaker; Z88.1 Allergy status to other antibiotic agents; Z79.899 Other long term (current) drug therapy
CPT/HCPCS: 36415; 80053; 81003; 83690-TC; 85025; 85610-TC; 85730-TC; 99284

== ENCOUNTER 2017-11-12 17:52 | Emergency (ER) | payer MEDICAID ==
[~2017-11-12] VITALS: Ht 167.6 cm; Wt 90.7 kg
[2017-11-12 18:02] VITALS: BP_SYST 145
[2017-11-12] MEDS ORDERED: NACL 0.9% 1,000 ML IV ONE (18:56)
[2017-11-12] MEDS ORDERED: MORPHINE 2 MG/ML INJ. SYRINGE IVP ONE (19:00)
[2017-11-12 20:12] LABS: BASOPHILS % (AUTO) 0.7 % (0.0-2.0); EOSINOPHILS % (AUTO) 0.8 % (0.0-4.0); HEMATOCRIT 36.9 % (36-54); HEMOGLOBIN 12.6 g/dL (14.0-18.0); LYMPHOCYTES # (AUTO) 1.6 K/uL (1.0-5.5); LYMPHOCYTES % (AUTO) 28.6 % (20.5-51.5); MEAN CORPUSCULAR HEMOGLOBIN 28 pg (27-31); MEAN CORPUSCULAR HGB CONC 34 % (32-36); MEAN CORPUSCULAR VOLUME 82 fL (79.0-98.0); MONOCYTES # (AUTO) 0.5 K/uL (0.0-1.0); MONOCYTES % (AUTO) 8.9 % (1.7-9.3); NEUTROPHILS # (AUTO) 3.4 K/uL (1.8-7.7); PLATELET COUNT (AUTO) 327 K/uL (130-430); RED BLOOD CELL COUNT(AUTO) 4.53 MIL/uL (4.2-6.2); RED CELL DISTRIBUTION WIDTH 14.7 % (9.0-15.0); WHITE BLOOD COUNT (AUTO) 5.5 K/uL (4.8-10.8)
[2017-11-12 20:22] LABS: BILIRUBIN,URINE NEGATIVE (NEGATIVE); BLOOD, URINE NEGATIVE (NEGATIVE); CLARITY/URINE CLEAR (CLEAR); COLOR,URINE YELLOW (YELLOW); GLUCOSE,URINE NEGATIVE (NEGATIVE); KETONES,URINE NEGATIVE (NEGATIVE); LEUKOCYTE ESTERASE ,URINE NEGATIVE (NEGATIVE); NITRITE, URINE NEGATIVE (NEGATIVE); PH,URINE 7.5 (5.0-8.0); PROTEIN URINE TRACE (NEGATIVE); UROBILINOGEN,URINE 0.2 (0.2-1.0)
[2017-11-12 20:25] LABS: CALCIUM 9.1 mg/dL (8.4-11.0); CREATININE 0.73 mg/dL (0.55-1.30); POTASSIUM 4.1 mmol/L (3.5-5.1)
[2017-11-12 20:31] LABS: ALBUMIN 3.9 g/dL (3.4-4.8); TOTAL BILIRUBIN 0.3 mg/dL (0.0-1.0)
[2017-11-12 20:33] LABS: BACTERIA,URINE FEW /HPF (None Seen); RBC,URINE 0-3 /HPF (0-3); WBC,URINE 0-3 /HPF (0-3)
[2017-11-12] MEDS ORDERED: LACTULOSE 20 GM/30 ML UDC PO ONE (21:00)
[2017-11-12] MEDS ORDERED: KETOROLAC TROMETHAMINE 30 MG VIAL IM ONE (21:00)
[2017-11-12 22:09] VITALS: BP_SYST 136
[2017-11-12] MEDS ORDERED: IBUPROFEN 800 MG TABLET PO ONE (22:15)
== END 2017-11-12 22:09 | disposition home or self-care (01) ==
LOC: SED 17:52
DX: K59.00 Constipation, unspecified (principal); E11.29 Type 2 diabetes mellitus with other diabetic kidney complication; N28.9 Disorder of kidney and ureter, unspecified; I10 Essential (primary) hypertension; N40.0 Benign prostatic hyperplasia without lower urinary tract symptoms; Z95.0 Presence of cardiac pacemaker; Z88.1 Allergy status to other antibiotic agents; Z79.899 Other long term (current) drug therapy
CPT/HCPCS: 36415; 74176; 80053; 81000; 83605; 83690; 85025; 96361; 96374; 99285; J2270; J7030; J1885

== ENCOUNTER 2017-11-20 08:31 | Emergency (ER) | payer MEDICAID ==
[~2017-11-20] VITALS: Ht 167.6 cm; Wt 88.5 kg
[2017-11-20 08:38] VITALS: BP_SYST 140
[2017-11-20 09:47] LABS: BASOPHILS % (AUTO) 0.5 % (0.0-2.0); EOSINOPHILS % (AUTO) 0.7 % (0.0-4.0); HEMATOCRIT 42.5 % (36-54); HEMOGLOBIN 13.9 g/dL (14.0-18.0); LYMPHOCYTES # (AUTO) 1.7 K/uL (1.0-5.5); LYMPHOCYTES % (AUTO) 26.8 % (20.5-51.5); MEAN CORPUSCULAR HEMOGLOBIN 27 pg (27-31); MEAN CORPUSCULAR HGB CONC 33 % (32-36); MEAN CORPUSCULAR VOLUME 82 fL (79.0-98.0); MONOCYTES # (AUTO) 0.4 K/uL (0.0-1.0); NEUTROPHILS # (AUTO) 4.1 K/uL (1.8-7.7); PLATELET COUNT (AUTO) 337 K/uL (130-430); RED BLOOD CELL COUNT(AUTO) 5.16 MIL/uL (4.2-6.2); RED CELL DISTRIBUTION WIDTH 14.4 % (9.0-15.0); WHITE BLOOD COUNT (AUTO) 6.2 K/uL (4.8-10.8)
[2017-11-20 09:48] LABS: CALCIUM 9.3 mg/dL (8.4-11.0); CREATININE 0.91 mg/dL (0.55-1.30); POTASSIUM 3.8 mmol/L (3.5-5.1)
[2017-11-20 09:49] LABS: BILIRUBIN,URINE NEGATIVE (NEGATIVE); BLOOD, URINE NEGATIVE (NEGATIVE); CLARITY/URINE CLOUDY (CLEAR); COLOR,URINE YELLOW (YELLOW); GLUCOSE,URINE NEGATIVE (NEGATIVE); KETONES,URINE NEGATIVE (NEGATIVE); LEUKOCYTE ESTERASE ,URINE 2+ (NEGATIVE); NITRITE, URINE NEGATIVE (NEGATIVE); PH,URINE >=9.0 (5.0-8.0); PROTEIN URINE 3+ (NEGATIVE)
[2017-11-20 09:52] LABS: ALBUMIN 4.7 g/dL (3.4-4.8); TOTAL BILIRUBIN 0.6 mg/dL (0.0-1.0)
[2017-11-20 10:12] LABS: BACTERIA,URINE FEW /HPF (None Seen); MUCUS,URINE None Seen /LPF (None Seen); RBC,URINE 0-3 /HPF (0-3)
[2017-11-20 12:04] VITALS: BP_SYST 157
== END 2017-11-20 12:22 | disposition home or self-care (01) ==
LOC: SED 08:31
DX: N39.0 Urinary tract infection, site not specified (principal); E11.29 Type 2 diabetes mellitus with other diabetic kidney complication; N28.9 Disorder of kidney and ureter, unspecified; I10 Essential (primary) hypertension; Z95.0 Presence of cardiac pacemaker; Z88.1 Allergy status to other antibiotic agents; Z79.899 Other long term (current) drug therapy
CPT/HCPCS: 36415; 80053; 81000-TC; 83605; 85025; 87086; 99284

== ENCOUNTER 2017-12-24 05:05 | Inpatient (IN) | payer MEDICAID, OTHER ==
[~2017-12-24] VITALS: Ht 167.6 cm; Wt 89.8 kg
[2017-12-24 05:05] VITALS: BP_SYST 161
--- NOTE | 2017-12-24 05:05 | NUR ---
Patient to ER bed 8 to gown for evaluation. Side rails up.
--- NOTE | 2017-12-24 05:10 | NUR ---
Pt complains of abdominal pain that radiates to left side of back since 3am this morning with episodes of vomiting. Per , 911 was called and was brought to [facility]. Pt was not seen or treated, ended up leaving with patient in her own vehicle and came to [place] ER. Pt denies fever. No other injuries/complaints per patient or noted.
--- NOTE | 2017-12-24 05:12 | NUR ---
KERON Long at bedside examining patient.
[2017-12-24] MEDS ORDERED: ONDANSETRON HCL 4 MG/2 ML VIAL IVP ONE (05:15)
[2017-12-24] MEDS ORDERED: METOCLOPRAMIDE HCL 10 MG/2 ML VIAL ONE (06:19)
[2017-12-24] MEDS ORDERED: METOCLOPRAMIDE HCL 10 MG/2 ML VIAL IVP ONE ×2 (06:30→10:45)
[2017-12-24] MEDS ORDERED: MORPHINE 4 MG/ML INJ. SYRINGE IVP ONE ×2 (06:30→07:15)
--- NOTE | 2017-12-24 06:31 | NUR ---
Medicatinos were given, pt tolerated well. No adverse reaction, will continue to monitor.
[2017-12-24 06:45] LABS: BILIRUBIN,URINE NEGATIVE (NEGATIVE); CLARITY/URINE SL HAZY (CLEAR); COLOR,URINE YELLOW (YELLOW); GLUCOSE,URINE NEGATIVE (NEGATIVE); KETONES,URINE NEGATIVE (NEGATIVE); LEUKOCYTE ESTERASE ,URINE NEGATIVE (NEGATIVE); NITRITE, URINE NEGATIVE (NEGATIVE); PH,URINE 6.5 (5.0-8.0); PROTEIN URINE NEGATIVE (NEGATIVE)
[2017-12-24 06:47] LABS: BASOPHILS % (AUTO) 0.4 % (0.0-2.0); EOSINOPHILS % (AUTO) 0.4 % (0.0-4.0); HEMATOCRIT 38.2 % (36-54); LYMPHOCYTES % (AUTO) 13.7 % (20.5-51.5); MEAN CORPUSCULAR HEMOGLOBIN 26 pg (27-31); MEAN CORPUSCULAR HGB CONC 31 % (32-36); MEAN CORPUSCULAR VOLUME 81 fL (79.0-98.0); MONOCYTES # (AUTO) 0.4 K/uL (0.0-1.0); MONOCYTES % (AUTO) 4.6 % (1.7-9.3); NEUTROPHILS # (AUTO) 6.2 K/uL (1.8-7.7); NEUTROPHILS % (AUTO) 80.9 % (40.0-70.0); PLATELET COUNT (AUTO) 519 K/uL (130-430); RED BLOOD CELL COUNT(AUTO) 4.71 MIL/uL (4.2-6.2); RED CELL DISTRIBUTION WIDTH 14.6 % (9.0-15.0); WHITE BLOOD COUNT (AUTO) 7.6 K/uL (4.8-10.8)
[2017-12-24 06:48] LABS: CALCIUM 9.5 mg/dL (8.4-11.0); CREATININE 0.71 mg/dL (0.55-1.30); POTASSIUM 3.6 mmol/L (3.5-5.1)
[2017-12-24 06:49] LABS: BLOOD, URINE TRACE (NEGATIVE)
[2017-12-24 06:54] LABS: TOTAL BILIRUBIN 0.8 mg/dL (0.0-1.0)
[2017-12-24 07:08] LABS: BACTERIA,URINE FEW /HPF (None Seen); MUCUS,URINE 1+ /LPF (None Seen); RBC,URINE 0-3 /HPF (0-3); WBC,URINE 0-3 /HPF (0-3)
--- NOTE | 2017-12-24 07:10 | NUR ---
ER Dr. Long at bedside explaining results to patient.
[2017-12-24 07:11] LABS: BARBITURATE, URINE NEGATIVE (NEG <=200); BENZODIAZEPINE, URINE NEGATIVE (NEG <=150); CANNABINOID, URINE NEGATIVE (NEG <=50); COCAINE, URINE NEGATIVE (NEG <=150); METHAMPHETAMINES SCREEN,URINE NEGATIVE (NEG <=500); OPIATE, URINE NEGATIVE (NEG <=100); PHENCYCLIDINE SCREEN,URINE NEGATIVE (NEG <=25); UR TRICYCLIC ANTIDEPRESSANTS NEGATIVE (NEG <=300); URINE AMPHETAMINE NEGATIVE (NEG <=500); URINE METHADONE NEGATIVE (NEG <=200); URINE OXYCODONE SCREEN POSITIVE (NEG <=100); URINE PROPOXYPHENE SCREEN NEGATIVE (NEG <=300)
--- NOTE | 2017-12-24 07:16 | NUR ---
Medication was given, pt tolerated well. No adverse reaction, will continue to monitor.
--- NOTE | 2017-12-24 07:29 | NUR ---
Pt went to CT in stable condition.
--- NOTE | 2017-12-24 07:34 | NUR ---
Report given to RN. All care endorsed.
--- NOTE | 2017-12-24 08:00 | NUR ---
Patient transported to radiology via gurney, accompanied by rad staff.
--- NOTE | 2017-12-24 08:06 | NUR ---
Returned from radiology, back to [facility].
[2017-12-24] MEDS ORDERED: KETAMINE 30 MG/3 ML SYRINGE 30 MG in NS 100 ML IV ONE (09:00)
[2017-12-24] MEDS ORDERED: KETAMINE 30 MG/3 ML SYRINGE ONE (09:05)
--- NOTE | 2017-12-24 09:20 | NUR ---
Pt medicated for pain and placed on monitor.
--- NOTE | 2017-12-24 09:30 | NUR ---
Patient will be admitted to care of Dr. Zhu. Admitted to medsurg unit. Will go to room 109A. Belongings list completed. Summary report printed. Report will be given at bedside.
--- NOTE | 2017-12-24 10:14 | NUR ---
ADMISSION NOTE Received patient from ER via michelle, received report from NADEEM DEJESUS. Patient admitted with diagnosis of SEVERE ILEUS. Patient oriented to hospital routine, call light, toileting and safety-patient verbalized understanding.
--- NOTE | 2017-12-24 10:31 | NUR ---
Paged Dr. Zhu at this time for PRN orders for nausea and pain for patient, will follow through with MD orders
[2017-12-24 10:33] VITALS: BP_SYST 161
[2017-12-24] MEDS ORDERED: POTASSIUM CHLORIDE 20 MEQ TAB.PRT.SR PO PRN (10:45)
[2017-12-24] MEDS ORDERED: MUPIROCIN 2% TOPICAL OINTMENT 22 GM NS PRN (10:45)
[2017-12-24] MEDS ORDERED: ZOLPIDEM TARTRATE 5 MG TABLET PO PRN (10:45)
[2017-12-24] MEDS ORDERED: MORPHINE 2 MG/ML INJ. SYRINGE IVP PRN ×2 (10:45)
[2017-12-24] MEDS ORDERED: ACETAMINOPHEN 325 MG TABLET PO PRN (10:45)
[2017-12-24] MEDS ORDERED: MAGNESIUM SULFATE 50 ML IV PRN (10:45)
[2017-12-24] MEDS ORDERED: ALBUTEROL SULFATE 0.083% 2.5 MG/3 ML VIAL.NEB INH PRN (10:45)
[2017-12-24] MEDS ORDERED: DOCUSATE SODIUM 100 MG CAPSULE PO PRN (10:45)
--- NOTE | 2017-12-24 10:45 | NUR ---
Dr. Zhu Rounds at this time, made aware of increased blood pressure, nausea and vomiting and pain, will follow through with orders Addendum: 12/24/17 at 1056 by Elmira Hanks RN Dr. Zhu made aware that patient stated Morphine 4mg was ineffective in ER, stated he does not want to give dilaudid due to severe constipation. will implement orders
[2017-12-24] MEDS ORDERED: METOPROLOL TARTRATE 25 MG TABLET PO ONE (11:00)
[2017-12-24] MEDS ORDERED: cloNIDine HCL 0.1 MG TABLET PO PRN (11:00)
[2017-12-24] MEDS ORDERED: BISACODYL 10 MG/SUPPOSITORY RC PRN (11:00)
--- NOTE | 2017-12-24 11:09 | NUR ---
GI consult called: for Dr. Stiles, regarding severe ileus, ordered by Dr. Zhu, spoke with Carla.
[2017-12-24] MEDS: D5NS 1,000 ML IV SCH ×2 (11:13→22:23)
--- NOTE | 2017-12-24 11:25 | NUR ---
Patient Vomited 50 mL of brownish liquid vomit
[2017-12-24 11:29] VITALS: BP_SYST 145
--- NOTE | 2017-12-24 11:29 | NUR ---
Reglan/IV fluids/Lopressor educated patient regarding meds, verbalized understanding, able to tolerate lopressor by mouth, educated him about NPO status except for meds, verbalized understanding, IV site patent, running fluids at this time, educated patient on use of call light for assistance, verbalized understanding, call light and bedside table left within reach, will continue to monitor
--- NOTE | 2017-12-24 12:22 | NUR ---
Patient Resting in Bed at this time, eyes closed, breathing unlabored on room air, he is positioned to his side, no signs of distress, IV fluids infusing at this time, safety precautions in place, bedside table and call light left within reach, will continue to monitor
[2017-12-24] MEDS: METOCLOPRAMIDE HCL 10 MG/2 ML VIAL IVP SCH ×2 (13:19→22:22)
[2017-12-24] MEDS: MORPHINE 2 MG/ML INJ. SYRINGE IVP PRN ×3 (13:20→22:25)
--- NOTE | 2017-12-24 13:29 | NUR ---
Morphine/Stool Softener educated patient regarding meds, verbalized understanding, complaining of pain 10/10 on abdomen, also administered stool softener by mouth PRN for constipation, educated him about safety and need for stool softener due to impacted stool, verbalized understanding, educated patient on use of call light for assistance, verbalized understanding, call light and bedside table left within reach, will continue to monitor
[2017-12-24 15:04] VITALS: BP_SYST 136
--- NOTE | 2017-12-24 15:15 | NUR ---
Patient Resting in Bed stated pain is tolerable at this time but still present, no nausea or vomiting at this time, IV fluids infusing, site patent, educated patient on use of call light for assistance, verbalized understanding, call light and bedside table left within reach, will continue to monitor patient
--- NOTE | 2017-12-24 16:49 | NUR ---
Dr. Go Feliz at this time, stated he will order mag citrate and enema to clean out patient, will implement orders
[2017-12-24] MEDS ORDERED: MINERAL OIL 133 ML ENEMA RC ONE (17:30)
--- NOTE | 2017-12-24 17:51 | NUR ---
Pain Meds given at this time, educated him regarding meds, verbalized understanding, IV site patent, no nausea at this time, educated patient on use of call light for assistance, verbalized understanding, call light and bedside table left within reach, will continue to monitor
--- NOTE | 2017-12-24 18:35 | NUR ---
Closing Note patient resting in bed, stated pain is better, denies any nausea or vomiting, IV fluids infusing at this time, safety precautions in place, bedside table and call light left within reach, will endorse to e commerce strategist nurse
[2017-12-24] MEDS ORDERED: MAGNESIUM CITRATE 300 ML ORAL SOLUTION PO ONE (19:00)
--- NOTE | 2017-12-24 20:00 | NUR ---
PATIENT REFUSING FLEET ENEMA .
[2017-12-24 20:31] VITALS: BP_SYST 137
--- NOTE | 2017-12-24 21:15 | NUR ---
MAG CITRATE 300 ML PO BOTTLE GIVEN , PATIENT TOLERATING .
[2017-12-24] MEDS ORDERED: MAGNESIUM CITRATE 300 ML ORAL SOLUTION ONE (21:16)
[2017-12-24] MEDS: OXcarbazepine 150 MG TABLET(TRILEPTAL) PO SCH (22:23)
[2017-12-24] MEDS: levETIRAcetam 500 MG TABLET PO SCH (22:25)
[2017-12-24] MEDS: METOPROLOL TARTRATE 25 MG TABLET PO SCH (22:26)
[2017-12-24] MEDS: LACOSAMIDE 100 MG TABLET PO SCH (22:26)
--- NOTE | 2017-12-24 22:47 | NUR ---
SEIZURE PRECAUTIONS IN PLACE PADDED SIDE RAILS ANTI - SEIZURE PO MEDICATION TOLERATED .
--- NOTE | 2017-12-24 22:48 | NUR ---
REGLAN 10 MG IVP GIVEN FOR GI SYSTEM & TOLERATE .
--- NOTE | 2017-12-24 22:49 | NUR ---
MORPHINE SULFATE 4 MG IVP GIVEN FOR GENERAL PAIN 09/24 COMFORT MEASURES HELPFUL .
[2017-12-25 00:10] VITALS: BP_SYST 134
--- NOTE | 2017-12-25 01:44 | NUR ---
KEPPRA 500 MG PO SEIZURE PRECAUTION , NO SEIZURE ACTIVITY NOTED .
[2017-12-25] MEDS: MORPHINE 2 MG/ML INJ. SYRINGE IVP PRN ×2 (02:30→06:24)
--- NOTE | 2017-12-25 04:38 | NUR ---
STOOL NOTED , PATIENT AMBULATE WITH FFW MAG CITRATE PO 300 ML EFFECTIVE .
[2017-12-25] MEDS: METOCLOPRAMIDE HCL 10 MG/2 ML VIAL IVP SCH ×3 (06:23→21:06)
[2017-12-25 06:32] LABS: BASOPHILS % (AUTO) 0.4 % (0.0-2.0); EOSINOPHILS % (AUTO) 1.1 % (0.0-4.0); HEMATOCRIT 29.4 % (36-54); HEMOGLOBIN 9.6 g/dL (14.0-18.0); LYMPHOCYTES # (AUTO) 1.9 K/uL (1.0-5.5); MEAN CORPUSCULAR HEMOGLOBIN 27 pg (27-31); MEAN CORPUSCULAR HGB CONC 33 % (32-36); MEAN CORPUSCULAR VOLUME 82 fL (79.0-98.0); MONOCYTES # (AUTO) 0.5 K/uL (0.0-1.0); MONOCYTES % (AUTO) 11.2 % (1.7-9.3); NEUTROPHILS # (AUTO) 1.9 K/uL (1.8-7.7); NEUTROPHILS % (AUTO) 44.3 % (40.0-70.0); PLATELET COUNT (AUTO) 476 K/uL (130-430); RED CELL DISTRIBUTION WIDTH 14.4 % (9.0-15.0); WHITE BLOOD COUNT (AUTO) 4.4 K/uL (4.8-10.8)
[2017-12-25 06:53] LABS: ALBUMIN 3.2 g/dL (3.4-4.8); CREATININE 0.62 mg/dL (0.55-1.30); POTASSIUM 3.5 mmol/L (3.5-5.1)
--- NOTE | 2017-12-25 07:20 | NUR ---
AM ROUNDS: PATIENT AWAKE DURING ROUNDS. BEDSIDE REPORT GIVEN BY NIGHT NURSE BRUCE. CALL LIGHT WITHIN REACH. BED LOCKED AT LOWEST POSITION. NO NEEDS THIS TIME. CONTINUE TO MONITOR.
[2017-12-25 08:00] VITALS: BP_SYST 135
[2017-12-25] MEDS: LACOSAMIDE 100 MG TABLET PO SCH ×2 (08:48→21:06)
[2017-12-25] MEDS: OXcarbazepine 150 MG TABLET(TRILEPTAL) PO SCH ×2 (08:48→21:06)
[2017-12-25] MEDS: levETIRAcetam 500 MG TABLET PO SCH ×2 (08:49→21:05)
--- NOTE | 2017-12-25 08:50 | NUR ---
PO MEDS: ORAL MEDS GIVEN ROUTINELY ORDERED. NO COMPLICATIONS NOTED.
[2017-12-25] MEDS: METOPROLOL TARTRATE 25 MG TABLET PO SCH ×2 (08:51→21:05)
--- NOTE | 2017-12-25 10:06 | NUR ---
Nutrition Update Mick Scale 18 noted. Pt admitted for severe ileus. Diet: clear liquid BMI: 32 kg/m2 RD to follow per nutrition care standards.
--- NOTE | 2017-12-25 10:55 | NUR ---
PAIN MEDS: C/O GENERALIZED PAIN AN DUE IV PAIN MEDS GIVEN PER REQUEST. NO COMPLICATIONS NOTED THIS TIME.
[2017-12-25 11:00] VITALS: BP_SYST 140
[2017-12-25] MEDS ORDERED: MORPHINE 2 MG/ML INJ. SYRINGE IVP PRN (11:15)
--- NOTE | 2017-12-25 12:15 | NUR ---
RN ROUNDS; PATIENT HAVING LUNCH.ADVANCE DIET TOLERATED ORDERED. NO NEEDS THIS TIME.
[2017-12-25] MEDS: D5NS 1,000 ML IV SCH (14:41)
[2017-12-25] MEDS: MORPHINE 4 MG/ML INJ. SYRINGE IVP PRN ×3 (14:42→22:52)
[2017-12-25] MEDS ORDERED: DICYCLOMINE HCL 10 MG CAPSULE PO ONE (14:45)
[2017-12-25] MEDS ORDERED: PANTOPRAZOLE SODIUM 40 MG TAB PO ONE (14:45)
--- NOTE | 2017-12-25 14:47 | NUR ---
PAIN MEDS: C/O ABDOMINAL PAIN AND DUE IV PAIN MEDS GIVEN PER REQUEST. NO COMPLICATIONS NOTED.
[2017-12-25 16:00] VITALS: BP_SYST 124
--- NOTE | 2017-12-25 18:34 | NUR ---
PAIN MEDS: C/O ABDOMINAL PAIN AND DUE IV PAIN MEDS GIVEN PER REQUEST. NO PROBLEM.
--- NOTE | 2017-12-25 18:51 | NUR ---
END OF SHIFT: PATIENT WATCHING TV. MST GUIDELINES MET THROUGHOUT THE SHIFT. STABLE.
--- NOTE | 2017-12-25 19:17 | NUR ---
Initial Notes Received patient in bed awake alert oriented x4. No c/o pain and no s/s of any distress noted. IV noted to R wrist g24 patent and with good blood return. All extremities are strong, BRP. Discuss plan of care with patient and verbalize understanding. Call light in reach, will cont to monitor.
[2017-12-25 19:22] VITALS: BP_SYST 121
[2017-12-25] MEDS: DICYCLOMINE HCL 10 MG CAPSULE PO SCH (21:06)
[2017-12-25] MEDS: LORazepam 2 MG/ML VIAL IVP PRN (21:15)
--- NOTE | 2017-12-25 21:20 | NUR ---
Rounds Patient is watching tv at this time. No c/o pain and no s/s of any distress noted. Call light in reach, will cont to monitor.
--- NOTE | 2017-12-25 23:22 | NUR ---
Rounds Patient is awake watching tv at this time. No c/o pain and no s/s of any distress noted. Call light in reach, will cont to monitor.
[2017-12-26 00:29] VITALS: BP_SYST 151
--- NOTE | 2017-12-26 01:22 | NUR ---
Rounds Patient is resting comfortably in bed at this time. No c/o pain and no s/s of any distress noted. Call light in reach, will cont to monitor.
[2017-12-26] MEDS: MORPHINE 4 MG/ML INJ. SYRINGE IVP PRN ×4 (02:59→14:50)
[2017-12-26] MEDS: D5NS 1,000 ML IV SCH ×2 (03:04→11:30)
--- NOTE | 2017-12-26 03:22 | NUR ---
Rounds Patient is in bed c/o pain at this time. Admin morphine for 8/10 abd pain. Call light in reach, will cont to monitor.
[2017-12-26] MEDS: METOCLOPRAMIDE HCL 10 MG/2 ML VIAL IVP SCH ×2 (06:34→14:48)
--- NOTE | 2017-12-26 06:59 | NUR ---
End of shift notes Patient is resting in bed at this time. No c/o pain and no s/s of any distress noted. All needs met and anticipated by noc shift nurses. Call light in reach, bed alarm on and bed in low position. Will endorse to AM shift.
--- NOTE | 2017-12-26 07:59 | NUR ---
OPENING NOTE: MORNING REPORT WAS TAKEN FROM MAINTENANCE AND UTILITIES SUPERVISOR NURSE. PATIENT IS ALERT AND ORIENTED X4. VITALS AND MORNING ASSESSMENT WAS DONE. PATIENT COMPLAINING OF A LITTLE BIT OF SHORTNESS OF BREATH. PATIENT ON ROOM AIR. PATIENT NOT COMPLAINING OF NAUSEA OR VOMITING. NEW IV WAS STARTED ON LEFT ARM BY NIGHT NURSE. PATIENT COMPLAINING OF ABDOMINAL PAIN. PATIENT NOT COMPLAINING OF CONSTIPATION. EDUCATED PATIENT ON IMPORTANCE OF BED ALARM BUT REFUSED TO HAVE IT ON. BED IN LOWEST POSITION WITH CALL LIGHT IN REACH. WILL CONTINUE TO MONITOR.
[2017-12-26 08:00] VITALS: BP_SYST 137
[2017-12-26] MEDS: METOPROLOL TARTRATE 25 MG TABLET PO SCH (08:48)
[2017-12-26] MEDS: levETIRAcetam 500 MG TABLET PO SCH (08:48)
[2017-12-26] MEDS: DICYCLOMINE HCL 10 MG CAPSULE PO SCH (08:49)
[2017-12-26] MEDS: LACOSAMIDE 100 MG TABLET PO SCH (08:49)
[2017-12-26] MEDS: OXcarbazepine 150 MG TABLET(TRILEPTAL) PO SCH (08:49)
[2017-12-26] MEDS ORDERED: PANTOPRAZOLE SODIUM 40 MG TAB PO SCH (09:00)
[2017-12-26] MEDS: LORazepam 2 MG/ML VIAL IVP PRN (09:36)
--- NOTE | 2017-12-26 09:50 | NUR ---
PATIENT SHIVERING A LOT. PATIENT ABLE TO TALK TO ME. GAVE ATIVAN. VITALS ARE 160/100, 98.4 TEMP, 95%, AND 97 HR. PATIENT SAID HE FEELS COLD AND HAS SOME PAIN. COVERED WITH WARM BLANKET. AT BEDSIDE CONTINUING TO MONITOR.
--- NOTE | 2017-12-26 10:30 | NUR ---
NOTE: CHECKED ON PATIENT. PATIENT NOT SHIVERING ANYMORE. PATIENT WAS GOING TO GO TO RESTROOM SO TURNED OFF BED ALARM. PATIENT LAID BACK IN BED SO ASKED IF HE WANTED BED ALARM ON. PATIENT SAID NO. EDUCATED PATIENT TO CALL IF HE NEEDS HELP OR FEELS DIZZY. PATIENT VERBALIZED UNDERSTANDING. WILL CONTINUE TO MONITOR.
[2017-12-26 11:20] VITALS: BP_SYST 137
--- NOTE | 2017-12-26 11:55 | NUR ---
NOTE: PATIENT NOT WANTING TO LEAVE. SAYING HE IS IN PAIN STILL. NO PAIN MEDICATIONS DUE YET. CALLED AT 1130 BECAUSE PATIENT WANTED ME TO CALL TO PICK HIM UP. SAID HER MOTHER IN LAW WAS GOING TO PICK HIM UP AT 1205. WILL CONTINUE TO MONITOR.
[2017-12-26 12:00] VITALS: BP_SYST 121
--- NOTE | 2017-12-26 13:45 | NUR ---
NOTE: CHECKED IN ON PATIENT BUT HE WAS ASLEEP WITH NO SIGNS OF DISTRESS. WILL CONTINUE TO MONITOR.
--- NOTE | 2017-12-26 14:40 | NUR ---
Dietitian Recommendations *Recommend continuing regular diet per MD. *Encourage pt to increase PO intake. Please see Nutritional Assessment for details. JUNITO, RD
--- NOTE | 2017-12-26 14:50 | NUR ---
NOTE: PATIENT COMPLAINING OF PAIN. GAVE PATIENT PAIN MEDICATION AND REGLAN. PATIENT SAID WILL COME AT 1700 TO PICK HIM UP.
[2017-12-26] MEDS ORDERED: BENI20 PO (15:03)
[2017-12-26] MEDS ORDERED: PANT40SU2 PO (16:37)
--- NOTE | 2017-12-26 17:37 | NUR ---
D/C Patient Patient given medication reconciliation form and D/C instructions. Exit Care provided. Patient verbalized understanding. MD discussed with patient the results and treatment provided. Ambulatory with steady gait for discharge to home. Patient in stable condition, ID band removed. IV catheter removed, intact and dressing applied, no active bleeding. Rx of given. Patient educated on pain management. All belongings sent with patient. Addendum: 12/26/17 at 1951 by Teri Jones RN PATIENT WHEELED OUT TO FRONT BY ANJELICA SHAVER. PATIENT SENT HOME WITH RX.
== END 2017-12-26 17:37 | disposition home or self-care (01) | DRG 247 ==
LOC: SED 05:05 → SMU 09:19
PROVIDERS: ADMIT General Practice; ATTEND General Practice
DX: K56.7 Ileus, unspecified (principal); F11.20 Opioid dependence, uncomplicated; K59.00 Constipation, unspecified; K86.1 Other chronic pancreatitis; G40.909 Epilepsy, unspecified, not intractable, without status epilepticus; J45.909 Unspecified asthma, uncomplicated; H35.30 Unspecified macular degeneration; I10 Essential (primary) hypertension; I49.9 Cardiac arrhythmia, unspecified; G89.29 Other chronic pain; E11.9 Type 2 diabetes mellitus without complications; N40.0 Benign prostatic hyperplasia without lower urinary tract symptoms; H54.7 Unspecified visual loss; M45.9 Ankylosing spondylitis of unspecified sites in spine; Z88.8 Allergy status to other drugs, medicaments and biological substances; Z95.810 Presence of automatic (implantable) cardiac defibrillator; Z88.1 Allergy status to other antibiotic agents; Z79.899 Other long term (current) drug therapy; Z89.029 Acquired absence of unspecified finger(s)
CPT/HCPCS: 36415; 80053; 80307; 81000-TC; 83605; 83690-TC; 85025; 87040-TC; 87081; 96374; 96375; 96376; 99285; J2060; J2270; J2765; J7042

== ENCOUNTER 2018-01-09 15:40 | Emergency (ER) | payer MEDICAID ==
[~2018-01-09] VITALS: Ht 167.6 cm; Wt 93.0 kg
[~2018-01-09 15:40] MED LIST changes: +BENI20 PO; +PANT40SU2 PO
[2018-01-09 15:47] VITALS: BP_SYST 134
[2018-01-09] MEDS ORDERED: NACL 0.9% 1,000 ML IV ONE (16:15)
[2018-01-09] MEDS ORDERED: fentaNYL CITRATE/PF 100 MCG/2 ML AMP IVP ONE (17:00)
[2018-01-09] MEDS ORDERED: KETAMINE 30 MG/3 ML SYRINGE 30 MG in NS 100 ML IV ONE (17:00)
[2018-01-09 17:11] LABS: BASOPHILS % (AUTO) 0.7 % (0.0-2.0); EOSINOPHILS % (AUTO) 0.8 % (0.0-4.0); HEMATOCRIT 31.6 % (36-54); HEMOGLOBIN 10.2 g/dL (14.0-18.0); LYMPHOCYTES # (AUTO) 0.8 K/uL (1.0-5.5); LYMPHOCYTES % (AUTO) 13.8 % (20.5-51.5); MEAN CORPUSCULAR HEMOGLOBIN 26 pg (27-31); MEAN CORPUSCULAR HGB CONC 32 % (32-36); MEAN CORPUSCULAR VOLUME 80 fL (79.0-98.0); MONOCYTES # (AUTO) 0.6 K/uL (0.0-1.0); MONOCYTES % (AUTO) 9.9 % (1.7-9.3); NEUTROPHILS # (AUTO) 4.7 K/uL (1.8-7.7); NEUTROPHILS % (AUTO) 74.8 % (40.0-70.0); PLATELET COUNT (AUTO) 631 K/uL (130-430); RED BLOOD CELL COUNT(AUTO) 3.96 MIL/uL (4.2-6.2); RED CELL DISTRIBUTION WIDTH 14.4 % (9.0-15.0); WHITE BLOOD COUNT (AUTO) 6.1 K/uL (4.8-10.8)
[2018-01-09 17:12] LABS: CALCIUM 9.6 mg/dL (8.4-11.0); CREATININE 0.62 mg/dL (0.55-1.30); POTASSIUM 3.6 mmol/L (3.5-5.1)
[2018-01-09] MEDS ORDERED: KETAMINE 30 MG/3 ML SYRINGE ONE (17:13)
[2018-01-09 17:17] LABS: ALBUMIN 3.3 g/dL (3.4-4.8); INR 1.1 (0.80-1.20); TOTAL BILIRUBIN 0.7 mg/dL (0.0-1.0)
[2018-01-09 18:45] LABS: BILIRUBIN,URINE 1+ (NEGATIVE); BLOOD, URINE 3+ (NEGATIVE); CLARITY/URINE CLEAR (CLEAR); COLOR,URINE YELLOW (YELLOW); GLUCOSE,URINE NEGATIVE (NEGATIVE); KETONES,URINE NEGATIVE (NEGATIVE); LEUKOCYTE ESTERASE ,URINE NEGATIVE (NEGATIVE); NITRITE, URINE NEGATIVE (NEGATIVE); PH,URINE 6.5 (5.0-8.0); PROTEIN URINE 1+ (NEGATIVE); UROBILINOGEN,URINE 0.2 (0.2-1.0)
[2018-01-09 18:52] LABS: BACTERIA,URINE MODERATE /HPF (None Seen); MUCUS,URINE 2+ /LPF (None Seen); RBC,URINE 20-50 /HPF (0-3); WBC,URINE 0-3 /HPF (0-3)
[2018-01-09 19:25] VITALS: BP_SYST 116
== END 2018-01-09 19:25 | disposition home or self-care (01) ==
LOC: SED 15:40
DX: M54.9 Dorsalgia, unspecified (principal); E11.29 Type 2 diabetes mellitus with other diabetic kidney complication; N28.9 Disorder of kidney and ureter, unspecified; I10 Essential (primary) hypertension; Z95.0 Presence of cardiac pacemaker; Z88.1 Allergy status to other antibiotic agents; Z88.6 Allergy status to analgesic agent; Z79.899 Other long term (current) drug therapy
CPT/HCPCS: 36415; 71045; 80053; 81000; 83605; 84484; 85025; 85610; 85730; 87040; 87086; 93005; 96374; 96375; 99285; J3010; J7030

== ENCOUNTER 2018-01-22 09:54 | Emergency (ER) | payer MEDICAID ==
[~2018-01-22] VITALS: Ht 167.6 cm; Wt 90.7 kg
[2018-01-22 09:55] VITALS: BP_SYST 129
--- NOTE | 2018-01-22 10:00 | NUR ---
Placed in room 7.
--- NOTE | 2018-01-22 10:09 | NUR ---
PT AAOX4, ABLE TO VERBALIZE NEEDS. PT C/O SWELLING AND 9/10 PAIN TO LEFT UPPER CHEST PACEMAKER SITE. PACEMAKER WSA INSERTED 2 YEARS AGO. PT STATES HE WAS DISCHARGED FROM [facility] YESTERDAY, BEFORE DISCHARGE A PICC LINE WAS PLACED TO HIS TAWANA, AND THAT IS WHEN HE NOTICED THE PAIN/SWELLING AROUND PACEMAKER. PT DISCHARGED FROM [facility] W/ PICC LINE FOR ABX TX D/T PSEUDOMONAS INFECTION OF THE BLOOD. PT DENIES TAKING ANY PAIN MEDICATION.
--- NOTE | 2018-01-22 11:44 | NUR ---
Radiology at bedside.
[2018-01-22] MEDS ORDERED: MORPHINE 4 MG/ML INJ. SYRINGE IVP ONE (12:00)
--- NOTE | 2018-01-22 12:00 | NUR ---
ER at bedside examining patient.
[2018-01-22 12:33] LABS: BASOPHILS % (AUTO) 0.3 % (0.0-2.0); EOSINOPHILS # (AUTO) 0.1 K/uL (0.0-0.4); EOSINOPHILS % (AUTO) 1.7 % (0.0-4.0); HEMATOCRIT 30.9 % (36-54); HEMOGLOBIN 9.9 g/dL (14.0-18.0); LYMPHOCYTES # (AUTO) 1.5 K/uL (1.0-5.5); LYMPHOCYTES % (AUTO) 20.8 % (20.5-51.5); MEAN CORPUSCULAR HEMOGLOBIN 26 pg (27-31); MEAN CORPUSCULAR HGB CONC 32 % (32-36); MEAN CORPUSCULAR VOLUME 80 fL (79.0-98.0); MONOCYTES # (AUTO) 0.8 K/uL (0.0-1.0); MONOCYTES % (AUTO) 11.4 % (1.7-9.3); NEUTROPHILS # (AUTO) 4.7 K/uL (1.8-7.7); NEUTROPHILS % (AUTO) 65.8 % (40.0-70.0); PLATELET COUNT (AUTO) 389 K/uL (130-430); RED BLOOD CELL COUNT(AUTO) 3.87 MIL/uL (4.2-6.2); RED CELL DISTRIBUTION WIDTH 14.2 % (9.0-15.0); WHITE BLOOD COUNT (AUTO) 7.1 K/uL (4.8-10.8)
--- NOTE | 2018-01-22 12:34 | NUR ---
Pt medicated w/ 4mg morphine IVP via PICC line on TAWANA. Consent for use of PICC line on TAWANA received from pt and Dr. Mckeon. Pt tolerated well; will continue to monitor.
[2018-01-22 12:37] LABS: CALCIUM 9.3 mg/dL (8.4-11.0); CREATININE 0.75 mg/dL (0.55-1.30); POTASSIUM 3.4 mmol/L (3.5-5.1)
[2018-01-22 12:42] LABS: ALBUMIN 3.2 g/dL (3.4-4.8); TOTAL BILIRUBIN 0.6 mg/dL (0.0-1.0)
--- NOTE | 2018-01-22 13:27 | NUR ---
Pt resting quietly in bed. Will continue to monitor.
[2018-01-22] MEDS ORDERED: POTASSIUM CHLORIDE 20 MEQ TAB.PRT.SR PO ONE (13:30)
--- NOTE | 2018-01-22 14:00 | NUR ---
Pt speaking with Dr. Mckeon complaining that his is outside and that he needs to leave soon. Dr. Mckeon speaking with pt discussing that he was waiting for pt's steam plant records clerk to call him back so that they may discuss plan of care prior to discharge. Pt expresses that he wants to leave and Dr. Mckeon explaining that pt will be discharged but has to soon follow up with his steam plant records clerk.
[2018-01-22 14:30] VITALS: BP_SYST 129
--- NOTE | 2018-01-22 14:30 | NUR ---
Patient given written and verbal discharge instructions and verbalizes understanding. ER MD discussed with patient the results and treatment provided. Patient in stable condition. ID arm band removed. No Rx given. Patient educated on pain management and to follow up with synthetic chemist. Pain Scale 3/10. Opportunity for questions provided and answered. Medication side effect fact sheet provided.
== END 2018-01-22 14:30 | disposition home or self-care (01) ==
LOC: SED 09:54
DX: R07.89 Other chest pain (principal); E11.29 Type 2 diabetes mellitus with other diabetic kidney complication; N28.9 Disorder of kidney and ureter, unspecified; N40.0 Benign prostatic hyperplasia without lower urinary tract symptoms; I10 Essential (primary) hypertension; Z95.0 Presence of cardiac pacemaker; Z79.899 Other long term (current) drug therapy; Z88.1 Allergy status to other antibiotic agents; Z88.6 Allergy status to analgesic agent; Z88.8 Allergy status to other drugs, medicaments and biological substances
CPT/HCPCS: 36415; 71045; 80053; 84484; 85025; 93005; 96374; 99285; J2270

== ENCOUNTER 2018-03-21 07:40 | Emergency (ER) | payer MEDICAID ==
[~2018-03-21] VITALS: Ht 167.6 cm; Wt 83.9 kg
[~2018-03-21 07:40] MED LIST changes: +ONDANSETRON 4 MG ODT TAB ONE
[2018-03-21 07:44] VITALS: BP_SYST 159
[2018-03-21] MEDS ORDERED: MORPHINE 4 MG/ML INJ. SYRINGE IVP ONE ×2 (09:45→11:15)
[2018-03-21 09:46] LABS: HEMATOCRIT 29.7 % (36-54); HEMOGLOBIN 9.5 g/dL (14.0-18.0); MEAN CORPUSCULAR HEMOGLOBIN 23 pg (27-31); MEAN CORPUSCULAR HGB CONC 32 % (32-36); MEAN CORPUSCULAR VOLUME 73 fL (79.0-98.0); PLATELET COUNT (AUTO) 545 K/uL (130-430); RED BLOOD CELL COUNT(AUTO) 4.09 MIL/uL (4.2-6.2); WHITE BLOOD COUNT (AUTO) 5.6 K/uL (4.8-10.8)
[2018-03-21 10:23] LABS: CREATININE 0.74 mg/dL (0.55-1.30); POTASSIUM 3.8 mmol/L (3.5-5.1)
[2018-03-21 10:25] LABS: BAND % (MANUAL) 4 % (0-6); BASOPHILS % (MANUAL) 0 % (0-2); EOSINOPHILS % (MANUAL) 1 % (0-7); LYMPHOCYTES % (MANUAL) 25 % (20-46); MONOCYTES % (MANUAL) 3 % (0-11)
[2018-03-21 10:33] LABS: TOTAL BILIRUBIN 0.3 mg/dL (0.0-1.0)
[2018-03-21 10:34] LABS: ALBUMIN 3.5 g/dL (3.4-4.8)
[2018-03-21] MEDS ORDERED: ACETAMINOPHEN 325 MG TABLET PO ONE (10:45)
[2018-03-21 10:51] LABS: CLARITY/URINE CLEAR (CLEAR); COLOR,URINE YELLOW (YELLOW); GLUCOSE,URINE NEGATIVE (NEGATIVE); PROTEIN URINE TRACE (NEGATIVE)
[2018-03-21 10:52] LABS: BILIRUBIN,URINE NEGATIVE (NEGATIVE); BLOOD, URINE 2+ (NEGATIVE); KETONES,URINE NEGATIVE (NEGATIVE); LEUKOCYTE ESTERASE ,URINE NEGATIVE (NEGATIVE); NITRITE, URINE NEGATIVE (NEGATIVE); UROBILINOGEN,URINE 0.2 (0.2-1.0)
[2018-03-21 10:55] LABS: BARBITURATE, URINE NEGATIVE (NEG <=200); BENZODIAZEPINE, URINE NEGATIVE (NEG <=150); COCAINE, URINE NEGATIVE (NEG <=150); METHAMPHETAMINES SCREEN,URINE NEGATIVE (NEG <=500); OPIATE, URINE NEGATIVE (NEG <=100); PHENCYCLIDINE SCREEN,URINE NEGATIVE (NEG <=25); UR TRICYCLIC ANTIDEPRESSANTS NEGATIVE (NEG <=300); URINE AMPHETAMINE NEGATIVE (NEG <=500); URINE METHADONE NEGATIVE (NEG <=200); URINE OXYCODONE SCREEN NEGATIVE (NEG <=100); URINE PROPOXYPHENE SCREEN NEGATIVE (NEG <=300)
[2018-03-21 10:56] LABS: CANNABINOID, URINE POSITIVE (NEG <=50)
[2018-03-21 11:16] LABS: BACTERIA,URINE MODERATE /HPF (None Seen); URINE AMORPHOUS PHOSPHATES 1+ /HPF (None Seen); WBC,URINE 0-3 /HPF (0-3); YEAST,URINE None Seen /HPF (None Seen)
[2018-03-21 11:17] LABS: MUCUS,URINE 1+ /LPF (None Seen)
[2018-03-21 11:50] VITALS: BP_SYST 160
== END 2018-03-21 11:50 | disposition home or self-care (01) ==
LOC: SED 07:40
DX: G40.909 Epilepsy, unspecified, not intractable, without status epilepticus (principal); I12.9 Hypertensive chronic kidney disease with stage 1 through stage 4 chronic kidney disease, or unspecified chronic kidney disease; E11.22 Type 2 diabetes mellitus with diabetic chronic kidney disease; N18.9 Chronic kidney disease, unspecified; N40.0 Benign prostatic hyperplasia without lower urinary tract symptoms; Z95.0 Presence of cardiac pacemaker; Z88.1 Allergy status to other antibiotic agents; Z88.6 Allergy status to analgesic agent; Z88.8 Allergy status to other drugs, medicaments and biological substances; Z79.899 Other long term (current) drug therapy
CPT/HCPCS: 36415; 70450; 80053; 80307; 81000; 85027; 85007; 87086; 96374; 96376; 99284; J2270; Q0162

== ENCOUNTER 2018-04-16 18:02 | Emergency (ER) | payer MEDICAID ==
[~2018-04-16] VITALS: Ht 167.6 cm; Wt 93.0 kg
[~2018-04-16 18:02] MED LIST changes: -ONDANSETRON 4 MG ODT TAB ONE
[2018-04-16 18:07] VITALS: BP_SYST 145
[2018-04-16] MEDS ORDERED: SULFAMETHOXAZOLE/TRIMETHOPR DS 1 TABLET PO ONE (20:30)
[2018-04-16 20:48] VITALS: BP_SYST 138
== END 2018-04-16 20:47 | disposition home or self-care (01) ==
LOC: SED 18:02
DX: R33.9 Retention of urine, unspecified (principal); I12.9 Hypertensive chronic kidney disease with stage 1 through stage 4 chronic kidney disease, or unspecified chronic kidney disease; E11.22 Type 2 diabetes mellitus with diabetic chronic kidney disease; N18.9 Chronic kidney disease, unspecified; N40.0 Benign prostatic hyperplasia without lower urinary tract symptoms; Z95.0 Presence of cardiac pacemaker; Z79.899 Other long term (current) drug therapy; Z88.1 Allergy status to other antibiotic agents; Z88.6 Allergy status to analgesic agent; Z88.8 Allergy status to other drugs, medicaments and biological substances
CPT/HCPCS: 81002; 99284

== ENCOUNTER 2018-04-22 18:12 | Emergency (ER) | payer MEDICAID ==
[~2018-04-22] VITALS: Ht 167.6 cm; Wt 90.7 kg
[2018-04-22 18:20] VITALS: BP_SYST 148
--- NOTE | 2018-04-22 18:20 | NUR ---
Patient to ER bed 3 for evaluation.
--- NOTE | 2018-04-22 18:25 | NUR ---
Patient to ER via triage for evaluation of dysuria since 03/20/18. Patient reports that he has been taking Bactrim without symptom relief, patient reports previous flank pain, but denies any pain now. Patient denies nausea but does report anorexia. Patient is awake, alert and oriented in no acute distress, vital signs stable, respirations even and unlabored, skin warm and dry to touch. Patient able to ambulate to bed 3 without difficulty with slow, steady gait. Awaiting evaluation by ER MD, will continue to observe and assess.
--- NOTE | 2018-04-22 18:30 | NUR ---
ER at bedside examining patient.
[2018-04-22] MEDS ORDERED: NACL 0.9% 1,000 ML IV ONE (18:45)
[2018-04-22] MEDS ORDERED: VANCOMYCIN HCL 1,000 MG in NS 250 ML IV ONE (18:45)
[2018-04-22] MEDS ORDERED: VANCOMYCIN HCL 1000 MG/VIAL IV ONE (18:50)
--- NOTE | 2018-04-22 19:15 | NUR ---
IV started by ultrasound guidance by John DEJESUS, patient tolerated well. Patient c/o back pain and asking for something for pain, Dr Agudelo notified. Lab to draw second blood culture.
--- NOTE | 2018-04-22 19:35 | NUR ---
Lab at bedside to obtain specimen.
--- NOTE | 2018-04-22 19:40 | NUR ---
Lab unable to obtain specimen for blood culture, Dr Ness is aware. IV fluids infusing without difficulty, no redness or swelling noted at site.
[2018-04-22] MEDS ORDERED: MORPHINE 4 MG/ML INJ. SYRINGE IVP ONE ×2 (19:45→21:15)
[2018-04-22 19:50] LABS: CALCIUM 8.4 mg/dL (8.4-11.0); CREATININE 0.69 mg/dL (0.55-1.30); POTASSIUM 3.9 mmol/L (3.5-5.1)
[2018-04-22 19:55] LABS: HEMATOCRIT 28.8 % (36-54); HEMOGLOBIN 9.2 g/dL (14.0-18.0); MEAN CORPUSCULAR HEMOGLOBIN 23 pg (27-31); MEAN CORPUSCULAR HGB CONC 32 % (32-36); MEAN CORPUSCULAR VOLUME 71 fL (79.0-98.0); RED BLOOD CELL COUNT(AUTO) 4.05 MIL/uL (4.2-6.2); WHITE BLOOD COUNT (AUTO) 8.9 K/uL (4.8-10.8)
[2018-04-22 19:56] LABS: ALBUMIN 3.3 g/dL (3.4-4.8); BASOPHILS # (AUTO) 0.1 K/uL (0.0-0.2); BASOPHILS % (AUTO) 0.7 % (0.0-2.0); EOSINOPHILS # (AUTO) 0.1 K/uL (0.0-0.4); EOSINOPHILS % (AUTO) 0.6 % (0.0-4.0); LYMPHOCYTES # (AUTO) 1.6 K/uL (1.0-5.5); LYMPHOCYTES % (AUTO) 18.2 % (20.5-51.5); MONOCYTES # (AUTO) 0.5 K/uL (0.0-1.0); MONOCYTES % (AUTO) 5.1 % (1.7-9.3); NEUTROPHILS # (AUTO) 6.7 K/uL (1.8-7.7); NEUTROPHILS % (AUTO) 75.4 % (40.0-70.0); PLATELET COUNT (AUTO) 440 K/uL (130-430); RED CELL DISTRIBUTION WIDTH 16.4 % (9.0-15.0); TOTAL BILIRUBIN 0.2 mg/dL (0.0-1.0)
[2018-04-22 20:09] LABS: BILIRUBIN,URINE NEGATIVE (NEGATIVE); BLOOD, URINE 3+ (NEGATIVE); CLARITY/URINE CLEAR (CLEAR); COLOR,URINE YELLOW (YELLOW); GLUCOSE,URINE NEGATIVE (NEGATIVE); KETONES,URINE NEGATIVE (NEGATIVE); LEUKOCYTE ESTERASE ,URINE NEGATIVE (NEGATIVE); NITRITE, URINE NEGATIVE (NEGATIVE); PH,URINE 6.5 (5.0-8.0); PROTEIN URINE 2+ (NEGATIVE); UROBILINOGEN,URINE 0.2 (0.2-1.0)
[2018-04-22 20:14] LABS: BACTERIA,URINE MODERATE /HPF (None Seen); RBC,URINE 20-50 /HPF (0-3)
--- NOTE | 2018-04-22 20:35 | NUR ---
IV restarted in right thumb by charge nurse, IV in right upper arm infiltrated.
[2018-04-22] MEDS ORDERED: PHENAZOPYRIDINE HCL 100 MG TABLET PO ONE (21:15)
--- NOTE | 2018-04-22 21:15 | NUR ---
Dr Ness at bedside speaking with patient regarding results and plan of care, questions answered by Dr Ness. Will dc patient when IV abx infusion is complete.
--- NOTE | 2018-04-22 21:25 | NUR ---
Patient resting quietly in no acute distress, IV fluids/abx infusing without difficulty, no redness or swelling noted at site.
[2018-04-22 22:10] VITALS: BP_SYST 132
--- NOTE | 2018-04-22 22:10 | NUR ---
Patient given written and verbal discharge instructions and verbalizes understanding. ER MD discussed with patient the results and treatment provided. Patient in stable condition. ID arm band removed. IV catheter removed intact and dressing applied, no active bleeding. Rx of Macrobid, Pyridium given. Patient educated on pain management and to follow up with PMD. Pain Scale 0. Opportunity for questions provided and answered. Medication side effect fact sheet provided. Patient left ER in no acute distress, ambulating without difficulty with slow, steady gait. No adverse reaction noted to medication.
== END 2018-04-22 22:10 | disposition home or self-care (01) ==
LOC: SED 18:12
DX: N39.0 Urinary tract infection, site not specified (principal); N40.0 Benign prostatic hyperplasia without lower urinary tract symptoms; I12.9 Hypertensive chronic kidney disease with stage 1 through stage 4 chronic kidney disease, or unspecified chronic kidney disease; E11.22 Type 2 diabetes mellitus with diabetic chronic kidney disease; N18.9 Chronic kidney disease, unspecified; Z95.0 Presence of cardiac pacemaker; Z88.1 Allergy status to other antibiotic agents; Z88.6 Allergy status to analgesic agent; Z88.8 Allergy status to other drugs, medicaments and biological substances; Z79.899 Other long term (current) drug therapy
CPT/HCPCS: 36415; 80053; 81000; 83605; 85025; 87040; 87086; 96365; 96366; 96375; 96376; 99283; J2270; J3370; J7030

== ENCOUNTER 2018-05-06 08:48 | Emergency (ER) | payer MEDICAID ==
[~2018-05-06] VITALS: Ht 167.6 cm; Wt 86.2 kg
[2018-05-06 09:01] VITALS: BP_SYST 147
--- NOTE | 2018-05-06 09:07 | NUR ---
Patient to ER bed 5 to gown for evaluation. Side rails up. Report given to Harpreet DEJESUS.
--- NOTE | 2018-05-06 09:10 | NUR ---
Pt is here for c/o diffuse abd pain since this morning, vomiting, no diarrhas hx of seizures. Pt has indweling catheter that pt reported taking out himself this morning. Pt is alert and oriented x3, normalactive bowel sound x4 quadrants Addendum: 05/06/18 at 1025 by [email or web address] Pt states he took out his catheter due to seeing dark red blood.
--- NOTE | 2018-05-06 09:15 | NUR ---
MD at bedside to assess pt
[2018-05-06] MEDS ORDERED: DIPHENHYDRAMINE INJ 50 MG/ML VIAL IVP ONE (09:45)
[2018-05-06] MEDS ORDERED: PROCHLORPERAZINE EDISYLATE 10 MG/2 ML VIAL IVP ONE (09:45)
[2018-05-06] MEDS ORDERED: fentaNYL CITRATE/PF 100 MCG/2 ML AMP IVP ONE (09:45)
--- NOTE | 2018-05-06 09:50 | NUR ---
# 16 FR Zavala catheter with use of sterile technique. Immediate return of 150 cc clear yellow urine noted. Bedside drainage bag placed below level of bladder. Urine sample collected and sent to lab. Pt tolerated procedure well.
[2018-05-06 09:54] LABS: BASOPHILS % (AUTO) 0.2 % (0.0-2.0); EOSINOPHILS # (AUTO) 0.1 K/uL (0.0-0.4); EOSINOPHILS % (AUTO) 0.7 % (0.0-4.0); HEMATOCRIT 31.6 % (36-54); HEMOGLOBIN 9.8 g/dL (14.0-18.0); LYMPHOCYTES # (AUTO) 1.7 K/uL (1.0-5.5); LYMPHOCYTES % (AUTO) 21.7 % (20.5-51.5); MEAN CORPUSCULAR HEMOGLOBIN 22 pg (27-31); MEAN CORPUSCULAR HGB CONC 31 % (32-36); MONOCYTES # (AUTO) 0.4 K/uL (0.0-1.0); MONOCYTES % (AUTO) 5.4 % (1.7-9.3); NEUTROPHILS # (AUTO) 5.4 K/uL (1.8-7.7); PLATELET COUNT (AUTO) 462 K/uL (130-430); RED CELL DISTRIBUTION WIDTH 16.7 % (9.0-15.0); WHITE BLOOD COUNT (AUTO) 7.6 K/uL (4.8-10.8)
[2018-05-06 09:55] LABS: MEAN CORPUSCULAR VOLUME 70 fL (79.0-98.0)
[2018-05-06 10:10] LABS: CALCIUM 8.5 mg/dL (8.4-11.0); CREATININE 0.7 mg/dL (0.55-1.30); POTASSIUM 3.2 mmol/L (3.5-5.1)
[2018-05-06 10:16] LABS: ALBUMIN 3.5 g/dL (3.4-4.8); TOTAL BILIRUBIN 0.4 mg/dL (0.0-1.0)
[2018-05-06 10:31] LABS: BILIRUBIN,URINE NEGATIVE (NEGATIVE); BLOOD, URINE 2+ (NEGATIVE); CLARITY/URINE HAZY (CLEAR); COLOR,URINE YELLOW (YELLOW); GLUCOSE,URINE NEGATIVE (NEGATIVE); KETONES,URINE NEGATIVE (NEGATIVE); LEUKOCYTE ESTERASE ,URINE 1+ (NEGATIVE); NITRITE, URINE POSITIVE (NEGATIVE); PROTEIN URINE 2+ (NEGATIVE); UROBILINOGEN,URINE 0.2 (0.2-1.0)
[2018-05-06 10:41] LABS: BACTERIA,URINE MANY /HPF (None Seen)
[2018-05-06 10:42] LABS: MUCUS,URINE 1+ /LPF (None Seen)
[2018-05-06] MEDS ORDERED: cefTRIAXone 1 GM IVPB PREMIX 50 ML IV ONE (10:45)
--- NOTE | 2018-05-06 10:59 | NUR ---
Pt resting in bed comfortably. No complaints of pain.
--- NOTE | 2018-05-06 11:06 | NUR ---
Zavala catheter is draining clear yellow, about 100ml. Rocephin is infusing per MD order. Pt tolerating well, no adverse reaction noted.
--- NOTE | 2018-05-06 12:30 | NUR ---
Patient given written and verbal discharge instructions and verbalizes understanding. ER MD Dr. Enamorado discussed with patient the results and treatment provided. Patient in stable condition. ID arm band removed. IV catheter removed intact and dressing applied, no active bleeding. Rx of Macrobid given. Patient educated on pain management and to follow up with PMD. Pain Scale 0/10. Opportunity for questions provided and answered. Medication side effect fact sheet provided.
[2018-05-06 12:39] VITALS: BP_SYST 143
== END 2018-05-06 12:30 | disposition home or self-care (01) ==
LOC: SED 08:48
DX: N39.0 Urinary tract infection, site not specified (principal); I12.9 Hypertensive chronic kidney disease with stage 1 through stage 4 chronic kidney disease, or unspecified chronic kidney disease; E11.22 Type 2 diabetes mellitus with diabetic chronic kidney disease; N18.9 Chronic kidney disease, unspecified; N40.0 Benign prostatic hyperplasia without lower urinary tract symptoms; Z88.1 Allergy status to other antibiotic agents; Z88.8 Allergy status to other drugs, medicaments and biological substances; Z79.899 Other long term (current) drug therapy; Z95.0 Presence of cardiac pacemaker
CPT/HCPCS: 36415; 80053; 81000; 83690; 85025; 87086; 87186; 96365; 96375; 99283; J0696; J0780; J1200; J3010

== ENCOUNTER 2018-06-05 10:58 | Emergency (ER) | payer MEDICAID ==
[~2018-06-05] VITALS: Ht 170.2 cm; Wt 90.7 kg
--- NOTE | 2018-06-05 11:05 | NUR ---
CALLED FOR RADIOLOGY, PT NOT IN WAITING ROOM. CALLED FOR TRIAGE ALSO. UNABLE TO LOCATE PT
--- NOTE | 2018-06-05 11:25 | NUR ---
CALLED FOR TRIAGE, UNABLE TO LOCATE PT.
[2018-06-05 11:30] VITALS: BP_SYST 135
--- NOTE | 2018-06-05 11:35 | NUR ---
BROUGHT BACK TO BED #2 AND TRIAGED. REPORT GIVEN TO IZZY
--- NOTE | 2018-06-05 11:45 | NUR ---
Patient presented to ER with severe headache and had a seizure this morning. Patient ambulatory with cane to ER, arrived with . Patient A&Ox4, patient states he is blind and has seizure disorder. Patient states headache is 10/10 for pain. Patient placed in gurney with Seizure precautions. Patient denies N/V/D, afebrile and respirations equal bilat.
[2018-06-05 11:47] LABS: HEMATOCRIT 34.6 % (36-54); HEMOGLOBIN 10.8 g/dL (14.0-18.0); MEAN CORPUSCULAR HEMOGLOBIN 22 pg (27-31); MEAN CORPUSCULAR VOLUME 71 fL (79.0-98.0); RED BLOOD CELL COUNT(AUTO) 4.86 MIL/uL (4.2-6.2); WHITE BLOOD COUNT (AUTO) 6.3 K/uL (4.8-10.8)
[2018-06-05 11:48] LABS: BASOPHILS % (AUTO) 0.4 % (0.0-2.0); EOSINOPHILS % (AUTO) 0.6 % (0.0-4.0); LYMPHOCYTES # (AUTO) 1.4 K/uL (1.0-5.5); LYMPHOCYTES % (AUTO) 22.6 % (20.5-51.5); MEAN CORPUSCULAR HGB CONC 31 % (32-36); MONOCYTES # (AUTO) 0.5 K/uL (0.0-1.0); MONOCYTES % (AUTO) 7.8 % (1.7-9.3); NEUTROPHILS # (AUTO) 4.3 K/uL (1.8-7.7); NEUTROPHILS % (AUTO) 68.6 % (40.0-70.0); PLATELET COUNT (AUTO) 429 K/uL (130-430); RED CELL DISTRIBUTION WIDTH 21.2 % (9.0-15.0)
--- NOTE | 2018-06-05 11:55 | NUR ---
ER at bedside examining patient.
[2018-06-05 11:59] LABS: ANION GAP 13 (5-15); CHLORIDE 105 mmol/L (98-107); CREATININE 0.77 mg/dL (0.55-1.30); GLUCOSE 130 mg/dL (70-99); POTASSIUM 3.9 mmol/L (3.5-5.1); SODIUM SERUM 140 mmol/L (136-145); UREA NITROGEN, BLOOD 12 mg/dL (8-21)
[2018-06-05] MEDS ORDERED: LACOSAMIDE 100 MG TABLET PO SCH ×2 (12:00→21:00)
[2018-06-05] MEDS ORDERED: MORPHINE 4 MG/ML INJ. SYRINGE IM ONE (12:00)
[2018-06-05] MEDS ORDERED: LACOSAMIDE 100 MG TABLET PO ONE ×2 (12:00)
[2018-06-05 12:02] LABS: GFR AFRICAN AMERICAN 142 mL/min (>90)
[2018-06-05 12:06] LABS: ALANINE AMINOTRANSFERASE 67 U/L (12-78); ALBUMIN 3.9 g/dL (3.4-4.8); ASPARTATE AMINOTRANSFERASE 27 U/L (10-37); TOTAL BILIRUBIN 0.9 mg/dL (0.0-1.0)
[2018-06-05 12:09] LABS: ALCOHOL, BLOOD < 3 mg/dL (<10)
[2018-06-05 12:11] LABS: PROTHROMBIN TIME 10.5 SECS (9.5-12.5)
--- NOTE | 2018-06-05 12:40 | NUR ---
Per Dr Bonner only administered 100 mg of Vimpat, well tolerated
[2018-06-05 13:08] LABS: BILIRUBIN,URINE NEGATIVE (NEGATIVE); CLARITY/URINE CLEAR (CLEAR); COLOR,URINE YELLOW (YELLOW); GLUCOSE,URINE NEGATIVE (NEGATIVE); KETONES,URINE NEGATIVE (NEGATIVE); LEUKOCYTE ESTERASE ,URINE 1+ (NEGATIVE); NITRITE, URINE POSITIVE (NEGATIVE); PROTEIN URINE NEGATIVE (NEGATIVE)
[2018-06-05 13:11] LABS: BLOOD, URINE TRACE (NEGATIVE)
[2018-06-05 13:21] LABS: BACTERIA,URINE MANY /HPF (None Seen)
[2018-06-05 13:22] LABS: MUCUS,URINE None Seen /LPF (None Seen)
[2018-06-05 13:23] LABS: YEAST,URINE None Seen /HPF (None Seen)
[2018-06-05 13:24] LABS: CANNABINOID, URINE POSITIVE (NEG <=50); OPIATE, URINE POSITIVE (NEG <=100)
[2018-06-05 13:25] LABS: BARBITURATE, URINE NEGATIVE (NEG <=200); BENZODIAZEPINE, URINE NEGATIVE (NEG <=150); COCAINE, URINE NEGATIVE (NEG <=150); METHAMPHETAMINES SCREEN,URINE NEGATIVE (NEG <=500); PHENCYCLIDINE SCREEN,URINE NEGATIVE (NEG <=25); UR TRICYCLIC ANTIDEPRESSANTS NEGATIVE (NEG <=300); URINE AMPHETAMINE NEGATIVE (NEG <=500); URINE METHADONE NEGATIVE (NEG <=200); URINE OXYCODONE SCREEN POSITIVE (NEG <=100); URINE PROPOXYPHENE SCREEN NEGATIVE (NEG <=300)
[2018-06-05 13:35] VITALS: BP_SYST 135
--- NOTE | 2018-06-05 13:42 | NUR ---
Patient given written and verbal discharge instructions and verbalizes understanding. ER MD discussed with patient the results and treatment provided. Patient in stable condition. ID arm band removed. Rx of Augmentin and vimpat given. Patient educated on pain management and to follow up with PMD. Pain Scale 8/10 tolerable for pt. Opportunity for questions provided and answered. Medication side effect fact sheet provided.
== END 2018-06-05 13:42 | disposition home or self-care (01) ==
LOC: SED 10:58
DX: N39.0 Urinary tract infection, site not specified (principal); R56.9 Unspecified convulsions; I12.9 Hypertensive chronic kidney disease with stage 1 through stage 4 chronic kidney disease, or unspecified chronic kidney disease; E11.22 Type 2 diabetes mellitus with diabetic chronic kidney disease; N18.9 Chronic kidney disease, unspecified; N40.0 Benign prostatic hyperplasia without lower urinary tract symptoms; Z76.0 Encounter for issue of repeat prescription; Z95.0 Presence of cardiac pacemaker; Z88.1 Allergy status to other antibiotic agents; Z88.6 Allergy status to analgesic agent; Z88.8 Allergy status to other drugs, medicaments and biological substances; Z79.899 Other long term (current) drug therapy
CPT/HCPCS: 36415; 70450; 71045; 80053; 80307; 81000; 84484; 85025; 85610; 85730; 87086; 87186; 96372; 99284; G0482; J2270

== ENCOUNTER 2018-06-05 17:58 | Emergency (ER) | payer MEDICAID ==
[~2018-06-05] VITALS: Ht 167.6 cm; Wt 93.0 kg
[2018-06-05 18:00] VITALS: BP_SYST 145
--- NOTE | 2018-06-05 18:00 | NUR ---
BROUGHT BACK TO BED #7 VIA WHEELCHAIR, PLACED IN BED AND TRIAGED. REPORT GIVEN TO YING
--- NOTE | 2018-06-05 18:05 | NUR ---
PT STATES THAT AFTER HE LEFT HERE EARLIER TODAY, HE WENT HOME AND HAD A SEIZURE. BROUGHT PT IN THIS TIME. PT SPEECH IS SLURRED AND STATES HEADACHE 12/25.
--- NOTE | 2018-06-05 18:37 | NUR ---
XRAYS BEING DONE AT BEDSIDE.
--- NOTE | 2018-06-05 18:42 | NUR ---
No IV site placement per Dr. Bonner.
[2018-06-05 18:50] LABS: MEAN CORPUSCULAR VOLUME 72 fL (79.0-98.0)
[2018-06-05 18:51] LABS: WHITE BLOOD COUNT (AUTO) 6.1 K/uL (4.8-10.8)
[2018-06-05 18:52] LABS: HEMATOCRIT 33.8 % (36-54); HEMOGLOBIN 10.5 g/dL (14.0-18.0); MEAN CORPUSCULAR HEMOGLOBIN 23 pg (27-31); MEAN CORPUSCULAR HGB CONC 31 % (32-36); NEUTROPHILS % (AUTO) 62.6 % (40.0-70.0); PLATELET COUNT (AUTO) 395 K/uL (130-430); RED BLOOD CELL COUNT(AUTO) 4.69 MIL/uL (4.2-6.2); RED CELL DISTRIBUTION WIDTH 21.3 % (9.0-15.0)
[2018-06-05 18:53] LABS: BASOPHILS % (AUTO) 0.5 % (0.0-2.0); EOSINOPHILS # (AUTO) 0.1 K/uL (0.0-0.4); LYMPHOCYTES # (AUTO) 1.6 K/uL (1.0-5.5); LYMPHOCYTES % (AUTO) 26.4 % (20.5-51.5); MONOCYTES # (AUTO) 0.6 K/uL (0.0-1.0); MONOCYTES % (AUTO) 9.5 % (1.7-9.3); NEUTROPHILS # (AUTO) 3.8 K/uL (1.8-7.7)
--- NOTE | 2018-06-05 19:00 | NUR ---
Pt resting comfortably in bed. No signs of acute distress. Will cont. to monitor.
[2018-06-05 19:01] LABS: CALCIUM 8.9 mg/dL (8.4-11.0); CREATININE 0.71 mg/dL (0.55-1.30); POTASSIUM 3.6 mmol/L (3.5-5.1)
[2018-06-05 19:04] LABS: PROTHROMBIN TIME 10.7 SECS (9.5-12.5)
[2018-06-05 19:07] LABS: ALBUMIN 3.9 g/dL (3.4-4.8); TOTAL BILIRUBIN 0.8 mg/dL (0.0-1.0)
--- NOTE | 2018-06-05 20:00 | NUR ---
Pt resting in bed with at bedside. No signs of distress. Will cont. to monitor
[2018-06-05] MEDS ORDERED: ACETAMINOPHEN 500 MG TABLET PO ONE (20:30)
--- NOTE | 2018-06-05 21:00 | NUR ---
Pt resting in bed. No signs of dstress.
--- NOTE | 2018-06-05 22:00 | NUR ---
Pt resting comfortably in bed. No signs of acute distress. Will cont. to monitor.
[2018-06-05 23:06] VITALS: BP_SYST 145
--- NOTE | 2018-06-05 23:06 | NUR ---
Patient given written and verbal discharge instructions and verbalizes understanding. ER MD Dr. Olmedo discussed with patient the results and treatment provided. Patient in stable condition. ID arm band removed. Patient educated on pain management and to follow up with PMD within 2-3 days. Pain Scale 0/10. Opportunity for questions provided and answered. Medication side effect fact sheet provided.
== END 2018-06-05 23:06 | disposition home or self-care (01) ==
LOC: SED 17:58
DX: R56.9 Unspecified convulsions (principal); R47.81 Slurred speech; R63.0 Anorexia; R30.0 Dysuria; I12.9 Hypertensive chronic kidney disease with stage 1 through stage 4 chronic kidney disease, or unspecified chronic kidney disease; E11.22 Type 2 diabetes mellitus with diabetic chronic kidney disease; N18.9 Chronic kidney disease, unspecified; N40.0 Benign prostatic hyperplasia without lower urinary tract symptoms; Z95.0 Presence of cardiac pacemaker; Z79.899 Other long term (current) drug therapy; Z88.1 Allergy status to other antibiotic agents; Z88.6 Allergy status to analgesic agent; Z88.8 Allergy status to other drugs, medicaments and biological substances
CPT/HCPCS: 36415; 71045; 80053; 84484; 85025; 85610-TC; 85730-TC; 93005; 99284

== ENCOUNTER 2018-06-06 11:41 | Emergency (ER) | payer MEDICAID ==
[~2018-06-06] VITALS: Ht 167.6 cm; Wt 93.0 kg
[2018-06-06 12:26] VITALS: BP_SYST 162
--- NOTE | 2018-06-06 12:31 | NUR ---
BROUGHT BACK TO BED #7 VIA WHEELCHAIR, PLACED IN BED AND WILL ASSUME CARE.
--- NOTE | 2018-06-06 12:40 | NUR ---
PT WAS SEEN HERE YESTERDAY TWICE FOR SAME ISSUE, PTS BROUGHT PT IN FOR SLURRED SPEECH AND HEADACHE. POSSIBLE SEIZURE TODAY AT SOME TIME TODAY. PT SPEAKING BABY LIKE SPEECH. PT IS ALERT AND ORIENTED X4, YELLING OUT AT STAFF.
--- NOTE | 2018-06-06 13:15 | NUR ---
DR CHOU AT BEDSIDE FOR EVALUATION
--- NOTE | 2018-06-06 13:22 | NUR ---
PT REFUSING ALL TESTS, REQUESTING WHEELCHAIR TO WAITING ROOM. PT UP TO WHEECHAIR AND PLACED IN WAITING ROOM. CALL PLACED TO RUIZ TO STOCK ANALYST HER SPOUSE
--- NOTE | 2018-06-06 13:32 | NUR ---
PT VOMITED IN ER WAITING ROOM, BROUGHT BACK TO BED #7 AND PT IN BED. RESTING.
[2018-06-06 13:34] LABS: RED BLOOD CELL COUNT(AUTO) 4.78 MIL/uL (4.2-6.2); WHITE BLOOD COUNT (AUTO) 4.9 K/uL (4.8-10.8)
[2018-06-06 13:35] LABS: BASOPHILS % (AUTO) 0.4 % (0.0-2.0); EOSINOPHILS % (AUTO) 0.7 % (0.0-4.0); HEMATOCRIT 34.2 % (36-54); HEMOGLOBIN 10.6 g/dL (14.0-18.0); LYMPHOCYTES % (AUTO) 22.9 % (20.5-51.5); MEAN CORPUSCULAR HEMOGLOBIN 22 pg (27-31); MEAN CORPUSCULAR HGB CONC 31 % (32-36); MEAN CORPUSCULAR VOLUME 72 fL (79.0-98.0); MONOCYTES % (AUTO) 9.4 % (1.7-9.3); NEUTROPHILS # (AUTO) 3.2 K/uL (1.8-7.7); NEUTROPHILS % (AUTO) 66.6 % (40.0-70.0); PLATELET COUNT (AUTO) 386 K/uL (130-430); RED CELL DISTRIBUTION WIDTH 21.3 % (9.0-15.0)
[2018-06-06 13:36] LABS: LYMPHOCYTES # (AUTO) 1.1 K/uL (1.0-5.5); MONOCYTES # (AUTO) 0.5 K/uL (0.0-1.0)
[2018-06-06 13:39] LABS: ANION GAP 11 (5-15); CALCIUM 8.8 mg/dL (8.4-11.0); CHLORIDE 103 mmol/L (98-107); CREATININE 0.74 mg/dL (0.55-1.30); GLUCOSE 85 mg/dL (70-99); POTASSIUM 3.6 mmol/L (3.5-5.1); SODIUM SERUM 139 mmol/L (136-145); UREA NITROGEN, BLOOD 11 mg/dL (8-21)
[2018-06-06 13:40] LABS: GFR AFRICAN AMERICAN 148 mL/min (>90)
[2018-06-06 13:41] LABS: PROTHROMBIN TIME 10.1 SECS (9.5-12.5)
[2018-06-06] MEDS ORDERED: ONDANSETRON 4 MG ODT TAB PO ONE (13:45)
[2018-06-06 13:49] LABS: ALANINE AMINOTRANSFERASE 54 U/L (12-78); ALBUMIN 4.1 g/dL (3.4-4.8); ASPARTATE AMINOTRANSFERASE 26 U/L (10-37); FREE T4 (FREE THYROXINE) 0.8 ng/dl (0.8-1.5); TOTAL BILIRUBIN 0.8 mg/dL (0.0-1.0)
--- NOTE | 2018-06-06 13:50 | NUR ---
CALL PLACED TO PTS RUIZ TO COME PICK PT UP. RUIZ STATES SHE IS ON HER WAY
[2018-06-06 14:00] LABS: ALCOHOL, BLOOD < 3 mg/dL (<10)
--- NOTE | 2018-06-06 14:20 | NUR ---
PT SLEEPING QUIETLY, NO SEIZURE ACTIVITY.
--- NOTE | 2018-06-06 15:10 | NUR ---
DR CHOU AT BEDSIDE SPEAKING WITH PT REGARDING TESTS RESULTS.
--- NOTE | 2018-06-06 15:35 | NUR ---
CALL PLACED TO RUIZ AGAIN, RUIZ STATES THAT PT TOLD HER NOT TO COME GET HIM. EXPLAINED THAT PT HAS BEEN ASLEEP THE LAST HOUR AND HE IS DISCHARGED. RUIZ STATES SHE IS ON HER WAY.
--- NOTE | 2018-06-06 15:50 | NUR ---
Patient given written and verbal discharge instructions and verbalizes understanding. ER MD discussed with patient the results and treatment provided. Patient in stable condition. ID arm band removed. Rx of Compazine given. Patient educated on pain management and to follow up with PMD. Pain Scale 3/10 .Opportunity for questions provided and answered. Medication side effect fact sheet provided.
== END 2018-06-06 15:50 | disposition home or self-care (01) ==
LOC: SED 11:41
DX: G89.29 Other chronic pain (principal); R51 Headache; I12.9 Hypertensive chronic kidney disease with stage 1 through stage 4 chronic kidney disease, or unspecified chronic kidney disease; E11.22 Type 2 diabetes mellitus with diabetic chronic kidney disease; N18.9 Chronic kidney disease, unspecified; N40.0 Benign prostatic hyperplasia without lower urinary tract symptoms; Z95.0 Presence of cardiac pacemaker; Z88.1 Allergy status to other antibiotic agents; Z88.6 Allergy status to analgesic agent; Z88.8 Allergy status to other drugs, medicaments and biological substances; Z79.899 Other long term (current) drug therapy
CPT/HCPCS: 36415; 74018; 80053; 82140; 83605; 83880; 84439; 84484; 85025; 85610; 87040; 93005; 99284; G0482; Q0162

== ENCOUNTER 2018-10-18 20:20 | Emergency (ER) | payer MEDICAID ==
[~2018-10-18] VITALS: Ht 167.6 cm; Wt 90.7 kg
[2018-10-18 20:20] VITALS: BP_SYST 147
--- NOTE | 2018-10-18 20:39 | NUR ---
Deepika moreau in [facility] - 10/18/18 at 2044 by SDEDAFJ Patient to bed to for evaluation. Side rails up.
--- NOTE | 2018-10-18 20:44 | NUR ---
Patient to ER bed 04 to gown for evaluation. Side rails up.
--- NOTE | 2018-10-18 20:48 | NUR ---
Pt is a 42 y/o male who comes into the ED w/ c/o chest pain that comes and goes that he rates as a 8/10. Pt has hx of seizures which he takes Keppra for. Pt states he took 3 nitroglycerins prior to arrival that improved his pain a little. Pt states he sweaty, nausea and sob for the past three days. 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 Pt denies fever, vomiting, arm pain, or any other complaints. Will cont to monitor.
--- NOTE | 2018-10-18 20:50 | NUR ---
Xray at bedside
--- NOTE | 2018-10-18 20:57 | NUR ---
ER at bedside examining patient.
[2018-10-18] MEDS ORDERED: CLOPIDOGREL BISULFATE 75 MG TABLET PO ONE (21:00)
[2018-10-18] MEDS ORDERED: NACL 0.9% 1,000 ML IV ONE (21:00)
[2018-10-18 21:04] LABS: BASOPHILS # (AUTO) 0.1 K/uL (0.0-0.2); BASOPHILS % (AUTO) 0.7 % (0.0-2.0); EOSINOPHILS # (AUTO) 0.1 K/uL (0.0-0.4); EOSINOPHILS % (AUTO) 1.2 % (0.0-4.0); HEMATOCRIT 39.8 % (36-54); HEMOGLOBIN 13.3 g/dL (14.0-18.0); LYMPHOCYTES # (AUTO) 2.1 K/uL (1.0-5.5); LYMPHOCYTES % (AUTO) 24.2 % (20.5-51.5); MEAN CORPUSCULAR HEMOGLOBIN 29 pg (27-31); MEAN CORPUSCULAR HGB CONC 33 % (32-36); MEAN CORPUSCULAR VOLUME 86 fL (79.0-98.0); MONOCYTES # (AUTO) 0.6 K/uL (0.0-1.0); MONOCYTES % (AUTO) 6.4 % (1.7-9.3); NEUTROPHILS # (AUTO) 5.9 K/uL (1.8-7.7); NEUTROPHILS % (AUTO) 67.5 % (40.0-70.0); PLATELET COUNT (AUTO) 228 K/uL (130-430); RED BLOOD CELL COUNT(AUTO) 4.61 MIL/uL (4.2-6.2); RED CELL DISTRIBUTION WIDTH 18.4 % (9.0-15.0); WHITE BLOOD COUNT (AUTO) 8.7 K/uL (4.8-10.8)
[2018-10-18 21:09] LABS: CREATININE 1.02 mg/dL (0.55-1.30); POTASSIUM 3.9 mmol/L (3.5-5.1)
[2018-10-18 21:15] LABS: ALBUMIN 3.5 g/dL (3.4-4.8); TOTAL BILIRUBIN 0.6 mg/dL (0.0-1.0)
[2018-10-18] MEDS ORDERED: fentaNYL CITRATE/PF 100 MCG/2 ML AMP IVP ONE (21:30)
[2018-10-18] MEDS ORDERED: fentaNYL CITRATE/PF 100 MCG/2 ML AMP IM ONE (21:45)
--- NOTE | 2018-10-18 22:00 | NUR ---
Pt resting in bed, no signs of acute distress or discomfort noted. Will cont to monitor pt.
[2018-10-18] MEDS ORDERED: MORPHINE 4 MG/ML INJ. SYRINGE IVP ONE (23:30)
[2018-10-19 00:08] VITALS: BP_SYST 147
--- NOTE | 2018-10-19 00:08 | NUR ---
Patient given written and verbal discharge instructions and verbalizes understanding. ER MD Dr. Ness discussed with patient the results and treatment provided. Patient in stable condition. ID arm band removed. IV catheter removed intact and dressing applied, no active bleeding. Rx of tramadol and celebrex given. Patient educated on pain management and to follow up with PMD. Pain Scale 2/10, able to steadily ambulate out of ER. Opportunity for questions provided and answered. Medication side effect fact sheet provided.
== END 2018-10-19 00:08 | disposition home or self-care (01) ==
LOC: SED 20:20
DX: R07.89 Other chest pain (principal); E11.9 Type 2 diabetes mellitus without complications; I10 Essential (primary) hypertension; Z95.0 Presence of cardiac pacemaker; Z79.899 Other long term (current) drug therapy; Z88.1 Allergy status to other antibiotic agents; Z88.6 Allergy status to analgesic agent; Z88.8 Allergy status to other drugs, medicaments and biological substances
CPT/HCPCS: 36415; 71045; 80053; 82550; 84484; 85025; 96372; 96374; 99284; J2270; J3010

== ENCOUNTER 2018-11-01 17:10 | Emergency (ER) | payer MEDICAID ==
[~2018-11-01] VITALS: Ht 167.6 cm; Wt 88.5 kg
[2018-11-01 17:57] VITALS: BP_SYST 119
--- NOTE | 2018-11-01 18:04 | NUR ---
Patient triaged and placed in waiting room. VSS and patient appears in no acute distress at this time. Accompanied by self, awaiting available bed, and MD notified of need for MSE.
--- NOTE | 2018-11-01 19:50 | NUR ---
Patient awaiting bed availability. No acute distress noted at this time.
--- NOTE | 2018-11-01 21:45 | NUR ---
Patient to ER bed 07 to gown for evaluation. Side rails up. Report given to ANJELICA Barcenas.
--- NOTE | 2018-11-01 21:50 | NUR ---
Patient AOx4, ambulatory with cane, presents to ER after patient's home health nurse was unable to insert an IV catheter and wants an IV catheter inserted to go home with. Patient states that [facility] discharged him with the IV catheter in place so that home health could resume care. Patient states he is due for an IV ABT dose but has not received it due to no IV in place. No other symptoms or complaints.
--- NOTE | 2018-11-01 22:02 | NUR ---
ER MD Raines at bedside for medical evaluation.
[2018-11-01 22:13] VITALS: BP_SYST 114
--- NOTE | 2018-11-01 22:13 | NUR ---
Patient given written and verbal discharge instructions and verbalizes understanding. ER MD discussed with patient the results and treatment provided. Patient in stable condition. ID arm band removed. No Rx given. Patient educated on pain management and to follow up with PMD. Pain Scale 0/10. Opportunity for questions provided and answered.
== END 2018-11-01 22:13 | disposition home or self-care (01) ==
LOC: SED 17:10
DX: T80.89XA Other complications following infusion, transfusion and therapeutic injection, initial encounter (principal); I10 Essential (primary) hypertension; E11.9 Type 2 diabetes mellitus without complications; Z88.1 Allergy status to other antibiotic agents; Z88.8 Allergy status to other drugs, medicaments and biological substances; Z79.899 Other long term (current) drug therapy
CPT/HCPCS: 99281

== ENCOUNTER 2018-11-22 10:40 | Emergency (ER) | payer MEDICAID ==
[~2018-11-22] VITALS: Ht 167.6 cm; Wt 90.7 kg
[2018-11-22 10:58] VITALS: BP_SYST 123
[2018-11-22 11:42] LABS: BILIRUBIN,URINE 1+ (NEGATIVE); BLOOD, URINE 3+ (NEGATIVE); CLARITY/URINE CLOUDY (CLEAR); COLOR,URINE AMBER (YELLOW); GLUCOSE,URINE NEGATIVE (NEGATIVE); KETONES,URINE TRACE (NEGATIVE); LEUKOCYTE ESTERASE ,URINE 2+ (NEGATIVE); NITRITE, URINE POSITIVE (NEGATIVE); PH,URINE 6.5 (5.0-8.0); PROTEIN URINE 3+ (NEGATIVE)
[2018-11-22 11:59] LABS: BACTERIA,URINE MANY /HPF (None Seen); RBC,URINE >100 /HPF (0-3); WBC,URINE >100 /HPF (0-3)
[2018-11-22 12:20] LABS: BASOPHILS % (AUTO) 0.6 % (0.0-2.0); EOSINOPHILS % (AUTO) 0.4 % (0.0-4.0); HEMATOCRIT 39.7 % (36-54); HEMOGLOBIN 13.5 g/dL (14.0-18.0); LYMPHOCYTES # (AUTO) 0.9 K/uL (1.0-5.5); LYMPHOCYTES % (AUTO) 10.5 % (20.5-51.5); MEAN CORPUSCULAR HEMOGLOBIN 30 pg (27-31); MEAN CORPUSCULAR HGB CONC 34 % (32-36); MEAN CORPUSCULAR VOLUME 88 fL (79.0-98.0); MONOCYTES # (AUTO) 0.7 K/uL (0.0-1.0); MONOCYTES % (AUTO) 8.4 % (1.7-9.3); NEUTROPHILS # (AUTO) 6.8 K/uL (1.8-7.7); NEUTROPHILS % (AUTO) 80.1 % (40.0-70.0); PLATELET COUNT (AUTO) 214 K/uL (130-430); RED BLOOD CELL COUNT(AUTO) 4.51 MIL/uL (4.2-6.2); RED CELL DISTRIBUTION WIDTH 16.3 % (9.0-15.0); WHITE BLOOD COUNT (AUTO) 8.5 K/uL (4.8-10.8)
[2018-11-22 12:32] LABS: CALCIUM 8.6 mg/dL (8.4-11.0); CREATININE 0.7 mg/dL (0.55-1.30); POTASSIUM 4.9 mmol/L (3.5-5.1)
[2018-11-22 12:38] LABS: ALBUMIN 3.5 g/dL (3.4-4.8); TOTAL BILIRUBIN 1.4 mg/dL (0.0-1.0)
[2018-11-22] MEDS ORDERED: ACETAMINOPHEN 500 MG TABLET PO ONE (12:45)
[2018-11-22] MEDS: cefTRIAXone 1 GM in D5W 50 ML IV ONE ×2 (13:07→13:32)
[2018-11-22] MEDS ORDERED: cefTRIAXone 1 GM VIAL ONE (13:12)
[2018-11-22 13:37] VITALS: BP_SYST 135
== END 2018-11-22 13:37 | disposition home or self-care (01) ==
LOC: SED 10:40
DX: N39.0 Urinary tract infection, site not specified (principal); N40.0 Benign prostatic hyperplasia without lower urinary tract symptoms; I12.9 Hypertensive chronic kidney disease with stage 1 through stage 4 chronic kidney disease, or unspecified chronic kidney disease; E11.22 Type 2 diabetes mellitus with diabetic chronic kidney disease; N18.9 Chronic kidney disease, unspecified; Z95.0 Presence of cardiac pacemaker; Z88.1 Allergy status to other antibiotic agents; Z88.6 Allergy status to analgesic agent; Z79.899 Other long term (current) drug therapy
CPT/HCPCS: 36415; 80053; 81000; 83605; 85025; 87040; 87086; 87186; 99283; J0696

== ENCOUNTER 2019-02-21 19:26 | Inpatient (IN) | payer MEDICAID ==
[~2019-02-21] VITALS: Ht 198.1 cm; Wt 86.2 kg
[2019-02-22 00:05] VITALS: BP_SYST 116
[2019-02-22 01:40] LABS: BILIRUBIN,URINE 1+ (NEGATIVE); BLOOD, URINE 3+ (NEGATIVE); CLARITY/URINE SL CLOUDY (CLEAR); COLOR,URINE ORANGE (YELLOW); GLUCOSE,URINE NEGATIVE (NEGATIVE); KETONES,URINE TRACE (NEGATIVE); LEUKOCYTE ESTERASE ,URINE 2+ (NEGATIVE); NITRITE, URINE POSITIVE (NEGATIVE); PROTEIN URINE 2+ (NEGATIVE)
[2019-02-22 01:57] LABS: BACTERIA,URINE MANY /HPF (None Seen); RBC,URINE >100 /HPF (0-3); WBC,URINE >100 /HPF (0-3)
[2019-02-22] MEDS ORDERED: VANCOMYCIN HCL 1,000 MG in NS 250 ML IV ONE (04:45)
[2019-02-22] MEDS ORDERED: NACL 0.9% 1,000 ML IV ONE ×2 (04:45→09:00)
[2019-02-22] MEDS ORDERED: fentaNYL CITRATE/PF 100 MCG/2 ML AMP IVP ONE ×2 (04:45→09:00)
[2019-02-22] MEDS ORDERED: METOCLOPRAMIDE HCL 10 MG/2 ML VIAL IVP ONE (04:45)
[2019-02-22 05:16] LABS: BASOPHILS # (AUTO) 0.1 K/uL (0.0-0.2); BASOPHILS % (AUTO) 0.5 % (0.0-2.0); EOSINOPHILS # (AUTO) 0.1 K/uL (0.0-0.4); EOSINOPHILS % (AUTO) 0.6 % (0.0-4.0); HEMATOCRIT 40.1 % (36-54); HEMOGLOBIN 13.5 g/dL (14.0-18.0); LYMPHOCYTES # (AUTO) 1.6 K/uL (1.0-5.5); MEAN CORPUSCULAR HEMOGLOBIN 30 pg (27-31); MEAN CORPUSCULAR HGB CONC 34 % (32-36); MEAN CORPUSCULAR VOLUME 89 fL (79.0-98.0); MONOCYTES % (AUTO) 8.6 % (1.7-9.3); NEUTROPHILS # (AUTO) 9.3 K/uL (1.8-7.7); NEUTROPHILS % (AUTO) 77.3 % (40.0-70.0); PLATELET COUNT (AUTO) 214 K/uL (130-430); RED BLOOD CELL COUNT(AUTO) 4.52 MIL/uL (4.2-6.2); RED CELL DISTRIBUTION WIDTH 15.4 % (9.0-15.0)
[2019-02-22 05:27] LABS: CALCIUM 8.8 mg/dL (8.4-11.0); CREATININE 0.65 mg/dL (0.55-1.30); POTASSIUM 3.7 mmol/L (3.5-5.1)
[2019-02-22 05:32] LABS: ALBUMIN 3.7 g/dL (3.4-4.8); TOTAL BILIRUBIN 1.7 mg/dL (0.0-1.0)
[2019-02-22] MEDS ORDERED: PIPERACILLIN/TAZO 3.375 GM in NS 50 ML IV ONE (09:15)
[2019-02-22] MEDS ORDERED: ALBUTEROL SULFATE 0.083% 2.5 MG/3 ML VIAL.NEB INH PRN (11:00)
[2019-02-22] MEDS ORDERED: LACOSAMIDE 100 MG TABLET PO ONE (11:00)
[2019-02-22] MEDS ORDERED: levETIRAcetam 500 MG TABLET PO ONE (11:00)
[2019-02-22] MEDS ORDERED: DICYCLOMINE HCL 10 MG CAPSULE PO ONE (11:00)
[2019-02-22 12:10] VITALS: BP_SYST 116
[2019-02-22] MEDS ORDERED: HYDROmorphone 1 MG INJ. 1 MG/ML AMPUL IM PRN (12:15)
[2019-02-22] MEDS: NACL 0.9% 1,000 ML IV SCH ×2 (12:35→21:06)
[2019-02-22] MEDS ORDERED: HYDROmorphone 1 MG INJ. 1 MG/ML AMPUL IVP PRN (13:00)
[2019-02-22 16:00] VITALS: BP_SYST 115
[2019-02-22 16:17] VITALS: BP_SYST 127
[2019-02-22] MEDS: HYDROmorphone 1 MG INJ. 1 MG/ML AMPUL IVP PRN ×2 (16:36→21:04)
[2019-02-22] MEDS ORDERED: HYDROmorphone 1 MG INJ. 1 MG/ML AMPUL ONE (16:45)
[2019-02-22 17:16] LABS: PROTHROMBIN TIME 10.4 SECS (9.5-12.5)
[2019-02-22] MEDS: DICYCLOMINE HCL 10 MG CAPSULE PO SCH ×2 (17:33→20:32)
[2019-02-22] MEDS: OXYCODONE/ACETAMINOPHEN *10*mg/325 mg TABLET PO SCH ×2 (17:33→20:34)
[2019-02-22] MEDS ORDERED: DICYCLOMINE HCL 10 MG CAPSULE ONE ×2 (17:43→20:42)
[2019-02-22] MEDS ORDERED: OXYCODONE/ACETAMINOPHEN *10*mg/325 mg TABLET ONE ×2 (17:43→20:43)
[2019-02-22 20:00] VITALS: BP_SYST 123
[2019-02-22] MEDS: levETIRAcetam 500 MG TABLET PO SCH (20:33)
[2019-02-22] MEDS: OXcarbazepine 150 MG TABLET(TRILEPTAL) PO SCH (20:33)
[2019-02-22] MEDS ORDERED: levETIRAcetam 500 MG TABLET ONE (20:42)
[2019-02-22] MEDS ORDERED: LANSOPRAZOLE 30 MG CAPSULE.DR ONE (20:42)
[2019-02-22] MEDS ORDERED: OXcarbazepine 150 MG TABLET(TRILEPTAL) ONE (20:43)
[2019-02-22] MEDS: LACOSAMIDE 100 MG TABLET PO SCH (21:00)
[2019-02-22] MEDS: CEFEPIME 1 GM in D5W 50 ML IV SCH (21:06)
[2019-02-22] MEDS: DIPHENHYDRAMINE INJ 50 MG/ML VIAL IVP PRN (21:08)
[2019-02-22] MEDS ORDERED: DIPHENHYDRAMINE INJ 50 MG/ML VIAL ONE (21:22)
[2019-02-23 00:21] VITALS: BP_SYST 118
[2019-02-23] MEDS: HYDROmorphone 1 MG INJ. 1 MG/ML AMPUL IVP PRN ×6 (02:06→22:05)
[2019-02-23] MEDS ORDERED: HYDROmorphone 1 MG INJ. 1 MG/ML AMPUL ONE ×3 (02:13→10:15)
[2019-02-23] MEDS: NACL 0.9% 1,000 ML IV SCH ×2 (05:18→17:51)
[2019-02-23] MEDS: DIPHENHYDRAMINE INJ 50 MG/ML VIAL IVP PRN ×5 (06:00→22:06)
[2019-02-23] MEDS ORDERED: DIPHENHYDRAMINE INJ 50 MG/ML VIAL ONE ×2 (06:11→10:18)
[2019-02-23 06:34] LABS: ALBUMIN 3.1 g/dL (3.4-4.8); CREATININE 0.63 mg/dL (0.55-1.30); POTASSIUM 3.8 mmol/L (3.5-5.1); TOTAL BILIRUBIN 1.7 mg/dL (0.0-1.0)
[2019-02-23 06:43] LABS: BASOPHILS % (AUTO) 0.5 % (0.0-2.0); EOSINOPHILS # (AUTO) 0.1 K/uL (0.0-0.4); EOSINOPHILS % (AUTO) 1.4 % (0.0-4.0); HEMATOCRIT 37.6 % (36-54); HEMOGLOBIN 12.7 g/dL (14.0-18.0); LYMPHOCYTES # (AUTO) 1.1 K/uL (1.0-5.5); LYMPHOCYTES % (AUTO) 11.9 % (20.5-51.5); MEAN CORPUSCULAR HEMOGLOBIN 30 pg (27-31); MEAN CORPUSCULAR HGB CONC 34 % (32-36); MEAN CORPUSCULAR VOLUME 89 fL (79.0-98.0); MONOCYTES # (AUTO) 0.4 K/uL (0.0-1.0); MONOCYTES % (AUTO) 4.2 % (1.7-9.3); NEUTROPHILS # (AUTO) 7.3 K/uL (1.8-7.7); PLATELET COUNT (AUTO) 189 K/uL (130-430); RED BLOOD CELL COUNT(AUTO) 4.23 MIL/uL (4.2-6.2); RED CELL DISTRIBUTION WIDTH 15.8 % (9.0-15.0); WHITE BLOOD COUNT (AUTO) 8.9 K/uL (4.8-10.8)
[2019-02-23 08:00] VITALS: BP_SYST 113
[2019-02-23] MEDS: OXYCODONE/ACETAMINOPHEN *10*mg/325 mg TABLET PO SCH ×3 (08:05→20:29)
[2019-02-23] MEDS ORDERED: OXYCODONE/ACETAMINOPHEN *10*mg/325 mg TABLET ONE (08:18)
[2019-02-23 08:40] LABS: ERYTHROCYTE SEDIMENTATION RATE 37 MM/HR (0-15)
[2019-02-23] MEDS ORDERED: levETIRAcetam 500 MG TABLET ONE (08:40)
[2019-02-23] MEDS ORDERED: DICYCLOMINE HCL 10 MG CAPSULE ONE (08:40)
[2019-02-23] MEDS ORDERED: LANSOPRAZOLE 30 MG CAPSULE.DR ONE (08:40)
[2019-02-23] MEDS ORDERED: OXcarbazepine 150 MG TABLET(TRILEPTAL) ONE (08:41)
[2019-02-23] MEDS: OXcarbazepine 150 MG TABLET(TRILEPTAL) PO SCH ×2 (08:58→21:31)
[2019-02-23] MEDS: LACOSAMIDE 100 MG TABLET PO SCH ×2 (08:58→21:30)
[2019-02-23] MEDS: levETIRAcetam 500 MG TABLET PO SCH ×2 (08:58→21:30)
[2019-02-23] MEDS: DICYCLOMINE HCL 10 MG CAPSULE PO SCH ×4 (08:59→21:30)
[2019-02-23] MEDS: CEFEPIME 1 GM in D5W 50 ML IV SCH ×2 (08:59→21:29)
[2019-02-23] MEDS: LANSOPRAZOLE 30 MG CAPSULE.DR PO SCH (08:59)
[2019-02-23] MEDS ORDERED: LACOSAMIDE 100 MG TABLET ONE (09:03)
[2019-02-23 12:05] VITALS: BP_SYST 111
[2019-02-23 16:03] VITALS: BP_SYST 120
[2019-02-23 20:17] VITALS: BP_SYST 124
[2019-02-24 01:30] VITALS: BP_SYST 119
[2019-02-24] MEDS: HYDROmorphone 1 MG INJ. 1 MG/ML AMPUL IVP PRN ×6 (01:35→21:09)
[2019-02-24] MEDS: DIPHENHYDRAMINE INJ 50 MG/ML VIAL IVP PRN ×4 (01:35→21:33)
[2019-02-24 08:00] VITALS: BP_SYST 138
[2019-02-24] MEDS: OXYCODONE/ACETAMINOPHEN *10*mg/325 mg TABLET PO SCH ×3 (08:22→20:00)
[2019-02-24] MEDS: NACL 0.9% 1,000 ML IV SCH ×3 (08:29→23:37)
[2019-02-24] MEDS: CEFEPIME 1 GM in D5W 50 ML IV SCH ×2 (09:19→19:59)
[2019-02-24] MEDS: levETIRAcetam 500 MG TABLET PO SCH ×2 (09:43→19:59)
[2019-02-24] MEDS: OXcarbazepine 150 MG TABLET(TRILEPTAL) PO SCH ×2 (09:43→20:01)
[2019-02-24] MEDS: LACOSAMIDE 100 MG TABLET PO SCH ×2 (09:44→20:01)
[2019-02-24] MEDS: LANSOPRAZOLE 30 MG CAPSULE.DR PO SCH (09:44)
[2019-02-24] MEDS: DICYCLOMINE HCL 10 MG CAPSULE PO SCH ×4 (09:44→20:01)
[2019-02-24 12:05] VITALS: BP_SYST 132
[2019-02-24 16:00] VITALS: BP_SYST 129
[2019-02-24 20:00] VITALS: BP_SYST 141
[2019-02-25] MEDS: HYDROmorphone 1 MG INJ. 1 MG/ML AMPUL IVP PRN ×5 (01:17→17:15)
[2019-02-25 01:53] VITALS: BP_SYST 127
[2019-02-25] MEDS: levETIRAcetam 500 MG TABLET PO SCH (07:57)
[2019-02-25] MEDS: DICYCLOMINE HCL 10 MG CAPSULE PO SCH ×3 (07:57→17:21)
[2019-02-25] MEDS: LANSOPRAZOLE 30 MG CAPSULE.DR PO SCH (07:57)
[2019-02-25] MEDS: OXcarbazepine 150 MG TABLET(TRILEPTAL) PO SCH (07:57)
[2019-02-25] MEDS: OXYCODONE/ACETAMINOPHEN *10*mg/325 mg TABLET PO SCH ×3 (07:59→19:01)
[2019-02-25] MEDS: CEFEPIME 1 GM in D5W 50 ML IV SCH (08:13)
[2019-02-25] MEDS: NACL 0.9% 1,000 ML IV SCH (08:13)
[2019-02-25 08:25] VITALS: BP_SYST 123
[2019-02-25] MEDS: LACOSAMIDE 100 MG TABLET PO SCH (09:44)
[2019-02-25] MEDS: DIPHENHYDRAMINE INJ 50 MG/ML VIAL IVP PRN ×2 (09:52→13:36)
[2019-02-25 12:53] VITALS: BP_SYST 113
[2019-02-25 17:01] VITALS: BP_SYST 118
[2019-02-25] MEDS ORDERED: NITR-85 PO (17:14)
[2019-02-25] MEDS ORDERED: OXYC-133 PO (17:28)
[2019-02-25] MEDS ORDERED: NITROFURANTOIN MONOHYD/M-CRYST 100 MG CAPSULE PO ONE (17:30)
[2019-02-25 18:29] VITALS: BP_SYST 118
[2019-02-25] MEDS ORDERED: OXYCODONE/ACETAMINOPHEN *10*mg/325 mg TABLET PO ONE (19:00)
== END 2019-02-25 19:36 | disposition home or self-care (01) | DRG 466 ==
LOC: SED 19:26 → SMU 02-22 09:11
PROVIDERS: ADMIT Internal Medicine; ATTEND Internal Medicine
PROC: 02HV33Z Insertion of Infusion Device into Superior Vena Cava, Percutaneous Approach (ICD-10-PCS; principal; 2019-02-22)
PROC: B548ZZA Ultrasonography of Superior Vena Cava, Guidance (ICD-10-PCS; 2019-02-22)
DX: T83.9XXA Unspecified complication of genitourinary prosthetic device, implant and graft, initial encounter (principal); N31.9 Neuromuscular dysfunction of bladder, unspecified; D64.9 Anemia, unspecified; G40.909 Epilepsy, unspecified, not intractable, without status epilepticus; E11.9 Type 2 diabetes mellitus without complications; G89.4 Chronic pain syndrome; H54.8 Legal blindness, as defined in USA; N39.0 Urinary tract infection, site not specified; M45.9 Ankylosing spondylitis of unspecified sites in spine; I10 Essential (primary) hypertension; N40.0 Benign prostatic hyperplasia without lower urinary tract symptoms; Z87.440 Personal history of urinary (tract) infections; Z95.0 Presence of cardiac pacemaker; Z88.8 Allergy status to other drugs, medicaments and biological substances; Z88.1 Allergy status to other antibiotic agents; Z79.899 Other long term (current) drug therapy
CPT/HCPCS: 36415; 71045; 80053; 81000-TC; 83605; 85025; 85610-TC; 85651-TC; 85730-TC; 87040-TC; 87086; 87186-TC; 96365; 96366; 96367; 96375; 99285; C1751; C1769; J0692; J1170; J1200; J7030; J7060

== ENCOUNTER 2019-03-12 11:26 | Emergency (ER) | payer MEDICAID ==
[~2019-03-12] VITALS: Ht 167.6 cm; Wt 81.6 kg
[~2019-03-12 11:26] MED LIST changes: +NITR-85 PO
[2019-03-12 11:30] VITALS: BP_SYST 149
--- NOTE | 2019-03-12 11:30 | NUR ---
BROUGHT BACK TO BED #5 AND TRIAGED. REPORT GIVEN TO CHHAYA
--- NOTE | 2019-03-12 11:50 | NUR ---
pt arrives from home w/ multiple c/o. Main concern is increasing lower back pain. Will conitnue to monitor.
--- NOTE | 2019-03-12 11:55 | NUR ---
DR ALFRDE AT BEDSIDE FOR EVALUATION
[2019-03-12] MEDS ORDERED: HYDROcodone/ACETAMIN 10-325 MG TAB PO ONE (12:00)
[2019-03-12] MEDS ORDERED: IBUPROFEN 800 MG TABLET PO ONE (12:00)
--- NOTE | 2019-03-12 12:10 | NUR ---
medicated the pt w/ [place] and Motrin per MD order. Will reassess
[2019-03-12 12:38] VITALS: BP_SYST 149
--- NOTE | 2019-03-12 12:38 | NUR ---
pt signed out AMA. Stated that he prefers to f/u w/ his PMD.
== END 2019-03-12 12:38 | disposition left against medical advice (07) ==
LOC: SED 11:26
DX: M54.5 Low back pain (principal); E11.9 Type 2 diabetes mellitus without complications; I10 Essential (primary) hypertension; N40.0 Benign prostatic hyperplasia without lower urinary tract symptoms; Z79.899 Other long term (current) drug therapy; Z95.0 Presence of cardiac pacemaker; Z87.448 Personal history of other diseases of urinary system; Z88.8 Allergy status to other drugs, medicaments and biological substances; Z88.1 Allergy status to other antibiotic agents; Z88.6 Allergy status to analgesic agent
CPT/HCPCS: 99283

== ENCOUNTER 2019-05-29 10:54 | Emergency (ER) | payer MEDICAID ==
[~2019-05-29] VITALS: Ht 167.6 cm; Wt 90.7 kg
[2019-05-29 11:04] VITALS: BP_SYST 155
[2019-05-29 13:37] LABS: BILIRUBIN,URINE NEGATIVE (NEGATIVE); BLOOD, URINE 1+ (NEGATIVE); CLARITY/URINE SL CLOUDY (CLEAR); COLOR,URINE YELLOW (YELLOW); GLUCOSE,URINE NEGATIVE (NEGATIVE); KETONES,URINE NEGATIVE (NEGATIVE); LEUKOCYTE ESTERASE ,URINE 1+ (NEGATIVE); NITRITE, URINE POSITIVE (NEGATIVE); PROTEIN URINE 2+ (NEGATIVE); UROBILINOGEN,URINE 0.2 (0.2-1.0)
[2019-05-29 13:43] LABS: BACTERIA,URINE MANY /HPF (None Seen); WBC,URINE 20-50 /HPF (0-3)
[2019-05-29 14:03] LABS: BASOPHILS # (AUTO) 0.1 K/uL (0.0-0.2); BASOPHILS % (AUTO) 0.5 % (0.0-2.0); EOSINOPHILS % (AUTO) 0.2 % (0.0-4.0); HEMATOCRIT 47.4 % (36-54); HEMOGLOBIN 15.8 g/dL (14.0-18.0); LYMPHOCYTES # (AUTO) 1.2 K/uL (1.0-5.5); MEAN CORPUSCULAR HEMOGLOBIN 30 pg (27-31); MEAN CORPUSCULAR HGB CONC 33 % (32-36); MEAN CORPUSCULAR VOLUME 92 fL (79.0-98.0); MONOCYTES # (AUTO) 0.4 K/uL (0.0-1.0); MONOCYTES % (AUTO) 3.8 % (1.7-9.3); NEUTROPHILS # (AUTO) 10.1 K/uL (1.8-7.7); NEUTROPHILS % (AUTO) 85.5 % (40.0-70.0); PLATELET COUNT (AUTO) 271 K/uL (130-430); RED BLOOD CELL COUNT(AUTO) 5.17 MIL/uL (4.2-6.2); RED CELL DISTRIBUTION WIDTH 15.8 % (9.0-15.0); WHITE BLOOD COUNT (AUTO) 11.8 K/uL (4.8-10.8)
[2019-05-29 14:18] LABS: CALCIUM 9.3 mg/dL (8.4-11.0); POTASSIUM 3.6 mmol/L (3.5-5.1)
[2019-05-29 14:19] LABS: CREATININE 0.85 mg/dL (0.55-1.30); TOTAL BILIRUBIN 0.8 mg/dL (0.0-1.0)
[2019-05-29 14:20] LABS: ALBUMIN 4.5 g/dL (3.4-4.8)
[2019-05-29] MEDS ORDERED: VANCOMYCIN HCL 1,000 MG in NS 250 ML IV ONE (15:45)
[2019-05-29] MEDS ORDERED: VANCOMYCIN HCL 1000 MG/VIAL IV ONE (16:22)
[2019-05-29] MEDS ORDERED: MORPHINE 4 MG/ML INJ. SYRINGE IVP ONE (17:00)
[2019-05-29 20:25] VITALS: BP_SYST 130
== END 2019-05-29 20:25 | disposition home or self-care (01) ==
LOC: SED 10:54
DX: N30.91 Cystitis, unspecified with hematuria (principal); E11.29 Type 2 diabetes mellitus with other diabetic kidney complication; N28.9 Disorder of kidney and ureter, unspecified; I10 Essential (primary) hypertension; N40.0 Benign prostatic hyperplasia without lower urinary tract symptoms; Z79.899 Other long term (current) drug therapy; Z88.1 Allergy status to other antibiotic agents; Z88.6 Allergy status to analgesic agent
CPT/HCPCS: 36415; 80053; 81000; 84484; 85025; 87086; 87186; 93005; 96365; 96375; 99284; J2270; J3370

== ENCOUNTER 2020-10-24 16:43 | Emergency (ER) | payer MEDICAID, SELFPAY ==
[~2020-10-24] VITALS: Ht 167.6 cm; Wt 81.6 kg
[~2020-10-24 16:43] MED LIST changes: -LEVE250T2 PO; +LEVE750T4 PO; +LORA-259 PO; -NITR-85 PO; -ONDA4TAB22 SL; -OXCA150T5 PO; +OXCA600T5 PO; +SULF1TAB48 PO
[2020-10-24 17:20] VITALS: BP_SYST 117
[2020-10-24 18:09] LABS: BASOPHILS % (AUTO) 0.6 % (0.0-2.0); EOSINOPHILS % (AUTO) 0.9 % (0.0-4.0); HEMATOCRIT 38.3 % (36-54); LYMPHOCYTES # (AUTO) 0.8 K/uL (1.0-5.5); LYMPHOCYTES % (AUTO) 20.9 % (20.5-51.5); MEAN CORPUSCULAR HEMOGLOBIN 33 pg (27-31); MEAN CORPUSCULAR HGB CONC 34 % (32-36); MEAN CORPUSCULAR VOLUME 98 fL (79.0-98.0); MONOCYTES # (AUTO) 0.4 K/uL (0.0-1.0); MONOCYTES % (AUTO) 11.5 % (1.7-9.3); NEUTROPHILS # (AUTO) 2.5 K/uL (1.8-7.7); NEUTROPHILS % (AUTO) 66.1 % (40.0-70.0); PLATELET COUNT (AUTO) 231 K/uL (130-430); RED BLOOD CELL COUNT(AUTO) 3.92 MIL/uL (4.2-6.2); WHITE BLOOD COUNT (AUTO) 3.8 K/uL (4.8-10.8)
[2020-10-24 18:59] LABS: ACETONE, SERUM NEGATIVE (NEGATIVE)
[2020-10-24 19:04] LABS: INR 1.1 (0.80-1.20); PROTHROMBIN TIME 11.6 SECS (9.5-12.5)
[2020-10-24 19:19] LABS: SODIUM SERUM 135 mmol/L (136-145)
[2020-10-24 19:20] LABS: ANION GAP 8 (5-15); CALCIUM 8.7 mg/dL (8.4-11.0); CHLORIDE 102 mmol/L (98-107); CREATININE 0.95 mg/dL (0.55-1.30); GFR AFRICAN AMERICAN 110 mL/min (>90); GLUCOSE 182 mg/dL (70-99); POTASSIUM 3.5 mmol/L (3.5-5.1); UREA NITROGEN, BLOOD 7 mg/dL (8-21)
[2020-10-24 19:21] LABS: ALANINE AMINOTRANSFERASE 38 U/L (12-78); ALBUMIN 3.6 g/dL (3.4-4.8); ASPARTATE AMINOTRANSFERASE 55 U/L (10-37); TOTAL BILIRUBIN 0.7 mg/dL (0.0-1.0)
[2020-10-24] MEDS ORDERED: HYDR-3917 PO (19:31)
[2020-10-24] MEDS ORDERED: LEVE500T9 PO (19:34)
[2020-10-24] MEDS ORDERED: OXCA600T5 PO (19:34)
[2020-10-24 19:50] VITALS: BP_SYST 117
== END 2020-10-24 19:50 | disposition home or self-care (01) ==
LOC: SED 16:43
DX: R53.1 Weakness (principal); I10 Essential (primary) hypertension; E11.9 Type 2 diabetes mellitus without complications; Z88.1 Allergy status to other antibiotic agents; Z88.8 Allergy status to other drugs, medicaments and biological substances; Z79.899 Other long term (current) drug therapy
CPT/HCPCS: 36415; 71045; 80053; 82009; 82550; 83605; 84484; 85025; 85610-TC; 85730-TC; 93005; 99285

== ENCOUNTER 2020-11-01 15:11 | Emergency (ER) | payer MEDICAID ==
[~2020-11-01] VITALS: Ht 167.6 cm; Wt 81.6 kg
[~2020-11-01 15:11] MED LIST changes: +HYDR-3917 PO; +LEVE500T9 PO
[2020-11-01 15:47] VITALS: BP_SYST 153
--- NOTE | 2020-11-01 17:35 | NUR ---
PT TO BED 6 FOR EVALUATION.
--- NOTE | 2020-11-01 17:40 | NUR ---
PT AAO AND AMBULATORY REPORTING A SEIZURE AT HOME THIS MORNING. PT DENIES ANY ACUTE INJURY FROM SEIZURE. PT WAS PLACED IN SEIZURE PRECUTIONS ON ARRIVAL AND REPORTS THAT HE HAS BEEN COMPLIANT WITH HIS SZ MEDICATION. PT REPORTING RECENTLY RESOLVED UTI, HEADACHE, DIZZINESS, AND A RASH ON HIS BLE'S. V/S STABLE AND PT REPORTS PAIN 6/10 ON PAIN SCALE.
[2020-11-01] MEDS ORDERED: NACL 0.9% 1,000 ML IV ONE (17:45)
--- NOTE | 2020-11-01 17:45 | NUR ---
DR. WU AT BEDSIDE TO ASSESS.
--- NOTE | 2020-11-01 18:35 | NUR ---
PT STRAIGHT CATH'D FOR URINE SPECIMENT SENT TO LAB FOR ANALYSIS.
--- NOTE | 2020-11-01 19:00 | NUR ---
# 20 gauge angiocath placed to LEFT HAND. Use of asceptic technique. Opsite placed over site. Blood return noted. Blood for lab drawn from site. Flushed with 10 cc of normal saline. No evidence of infiltration noted. Patient tolerated well.
--- NOTE | 2020-11-01 19:08 | NUR ---
LAB AT BEDSIDE FOR BLOOD DRAW.
--- NOTE | 2020-11-01 19:09 | NUR ---
REPORT GIVEN TO ANJELICA LOPEZ WHO WILL ASSUME CARE.
[2020-11-01 19:42] LABS: CALCIUM 9.2 mg/dL (8.4-11.0); CREATININE 0.79 mg/dL (0.55-1.30); POTASSIUM 3.3 mmol/L (3.5-5.1)
[2020-11-01 19:45] LABS: INR 1.1 (0.80-1.20); PROTHROMBIN TIME 11.6 SECS (9.5-12.5)
[2020-11-01 19:48] LABS: ALBUMIN 3.8 g/dL (3.4-4.8)
[2020-11-01 19:49] LABS: BASOPHILS % (AUTO) 0.4 % (0.0-2.0); EOSINOPHILS % (AUTO) 0.6 % (0.0-4.0); HEMATOCRIT 38.1 % (36-54); HEMOGLOBIN 13.2 g/dL (14.0-18.0); LYMPHOCYTES % (AUTO) 18.7 % (20.5-51.5); MEAN CORPUSCULAR HEMOGLOBIN 34 pg (27-31); MEAN CORPUSCULAR HGB CONC 35 % (32-36); MEAN CORPUSCULAR VOLUME 97 fL (79.0-98.0); MONOCYTES # (AUTO) 0.4 K/uL (0.0-1.0); MONOCYTES % (AUTO) 8.3 % (1.7-9.3); NEUTROPHILS # (AUTO) 3.8 K/uL (1.8-7.7); PLATELET COUNT (AUTO) 194 K/uL (130-430); RED BLOOD CELL COUNT(AUTO) 3.93 MIL/uL (4.2-6.2); RED CELL DISTRIBUTION WIDTH 14.1 % (9.0-15.0); WHITE BLOOD COUNT (AUTO) 5.3 K/uL (4.8-10.8)
[2020-11-01] MEDS ORDERED: DIPHENHYDRAMINE INJ 50 MG/ML VIAL IVP ONE (20:00)
[2020-11-01] MEDS ORDERED: MORPHINE 4 MG INJ. 4 MG/ML VIAL IVP ONE (20:00)
--- NOTE | 2020-11-01 20:00 | NUR ---
Patient resting quietly. No acute distress noted. Vital signs within normal range.
[2020-11-01 20:08] LABS: BILIRUBIN,URINE 1+ (NEGATIVE); BLOOD, URINE NEGATIVE (NEGATIVE); COLOR,URINE YELLOW (YELLOW); GLUCOSE,URINE NEGATIVE (NEGATIVE); KETONES,URINE NEGATIVE (NEGATIVE); LEUKOCYTE ESTERASE ,URINE TRACE (NEGATIVE); NITRITE, URINE NEGATIVE (NEGATIVE); PH,URINE 7.5 (5.0-8.0); PROTEIN URINE TRACE (NEGATIVE)
[2020-11-01 20:13] LABS: CLARITY/URINE SLIGHTLY HAZY (CLEAR)
[2020-11-01 20:39] LABS: BACTERIA,URINE MODERATE /HPF (None Seen); RBC,URINE 0-3 /HPF (0-3); WBC,URINE 0-3 /HPF (0-3)
--- NOTE | 2020-11-01 21:00 | NUR ---
MEDICATION ADMINISTERED ORDERED.
[2020-11-01] MEDS ORDERED: levETIRAcetam 500 MG TABLET PO ONE (21:45)
[2020-11-01] MEDS ORDERED: fentaNYL CITRATE/PF 100 MCG/2 ML AMP IVP ONE (21:45)
[2020-11-01 22:27] VITALS: BP_SYST 153
--- NOTE | 2020-11-01 22:27 | NUR ---
Patient given written and verbal discharge instructions and verbalizes understanding. DR. BRYCE CABRALES MD discussed with patient the results and treatment provided. Patient in stable condition. ID arm band removed. IV catheter removed intact and dressing applied, no active bleeding. Patient educated on pain management and to follow up with PMD. Pain Scale 0/10 Opportunity for questions provided and answered. Medication side effect fact sheet provided.
[2020-11-01 23:20] LABS: BARBITURATE, URINE NEGATIVE (NEG <=200); BENZODIAZEPINE, URINE POSITIVE (NEG <=150); CANNABINOID, URINE POSITIVE (NEG <=50); COCAINE, URINE NEGATIVE (NEG <=150); METHAMPHETAMINES SCREEN,URINE NEGATIVE (NEG <=500); OPIATE, URINE NEGATIVE (NEG <=100); PHENCYCLIDINE SCREEN,URINE NEGATIVE (NEG <=25); UR TRICYCLIC ANTIDEPRESSANTS NEGATIVE (NEG <=300); URINE AMPHETAMINE NEGATIVE (NEG <=500); URINE METHADONE NEGATIVE (NEG <=200); URINE OXYCODONE SCREEN NEGATIVE (NEG <=100); URINE PROPOXYPHENE SCREEN NEGATIVE (NEG <=300)
== END 2020-11-01 22:27 | disposition home or self-care (01) ==
LOC: SED 15:11
DX: R56.9 Unspecified convulsions (principal); R51.9 Headache, unspecified; R42 Dizziness and giddiness; I10 Essential (primary) hypertension; E11.9 Type 2 diabetes mellitus without complications; Z88.1 Allergy status to other antibiotic agents; Z88.8 Allergy status to other drugs, medicaments and biological substances; Z79.899 Other long term (current) drug therapy
CPT/HCPCS: 36415; 80053; 80307; 81000; 83605; 85025; 85610; 87040; 87086; 87186; 93005; 96361; 96374; 96375; 99284; J1200; J2270; J3010; J7030

== ENCOUNTER 2020-11-02 08:30 | Emergency (ER) | payer MEDICAID ==
[~2020-11-02] VITALS: Ht 167.6 cm; Wt 81.6 kg
[2020-11-02 08:30] VITALS: BP_SYST 143
[2020-11-02] MEDS ORDERED: levETIRAcetam 500 MG TABLET PO ONE (08:45)
[2020-11-02] MEDS ORDERED: OXcarbazepine 150 MG TABLET(TRILEPTAL) PO ONE (08:45)
[2020-11-02] MEDS ORDERED: LORazepam 1 MG TABLET PO ONE (08:45)
[2020-11-02 09:29] LABS: BASOPHILS % (AUTO) 0.4 % (0.0-2.0); HEMOGLOBIN 12.6 g/dL (14.0-18.0); LYMPHOCYTES # (AUTO) 0.9 K/uL (1.0-5.5); LYMPHOCYTES % (AUTO) 23.1 % (20.5-51.5); MEAN CORPUSCULAR HEMOGLOBIN 34 pg (27-31); MEAN CORPUSCULAR HGB CONC 35 % (32-36); MEAN CORPUSCULAR VOLUME 97 fL (79.0-98.0); MONOCYTES # (AUTO) 0.4 K/uL (0.0-1.0); MONOCYTES % (AUTO) 10.1 % (1.7-9.3); NEUTROPHILS # (AUTO) 2.7 K/uL (1.8-7.7); NEUTROPHILS % (AUTO) 65.4 % (40.0-70.0); PLATELET COUNT (AUTO) 162 K/uL (130-430); RED BLOOD CELL COUNT(AUTO) 3.71 MIL/uL (4.2-6.2); RED CELL DISTRIBUTION WIDTH 14.1 % (9.0-15.0); WHITE BLOOD COUNT (AUTO) 4.1 K/uL (4.8-10.8)
[2020-11-02 09:37] VITALS: BP_SYST 143
[2020-11-02 10:05] LABS: CALCIUM 8.4 mg/dL (8.4-11.0); CREATININE 0.91 mg/dL (0.55-1.30); POTASSIUM 3.8 mmol/L (3.5-5.1)
[2020-11-02 10:06] LABS: ALBUMIN 3.5 g/dL (3.4-4.8)
[2020-11-02 10:27] LABS: TOTAL BILIRUBIN 0.8 mg/dL (0.0-1.0)
== END 2020-11-02 09:32 | disposition left against medical advice (07) ==
LOC: SED 08:30
DX: R56.9 Unspecified convulsions (principal); I10 Essential (primary) hypertension; E11.9 Type 2 diabetes mellitus without complications; Z88.1 Allergy status to other antibiotic agents; Z88.8 Allergy status to other drugs, medicaments and biological substances; Z79.899 Other long term (current) drug therapy
CPT/HCPCS: 36415; 80053; 83605; 85025; 99284

== ENCOUNTER 2020-11-28 08:43 | Observation (INO) | payer MEDICAID, SELFPAY ==
[~2020-11-28] VITALS: Ht 167.6 cm; Wt 90.7 kg
[2020-11-28 09:05] VITALS: BP_SYST 148
--- NOTE | 2020-11-28 09:05 | NUR ---
Patient to ER bed 8 to gown for evaluation. Side rails up. Report given to Danie DEJESUS.
--- NOTE | 2020-11-28 09:13 | NUR ---
ER at bedside examining patient.
--- NOTE | 2020-11-28 09:14 | NUR ---
DR NEVAREZ IN TO ASSESS
--- NOTE | 2020-11-28 09:50 | NUR ---
UP AMBULATING TO BATHROOM, STEADY GAIT, NO DYSPNEA
--- NOTE | 2020-11-28 10:15 | NUR ---
LABS OBTAINED, TOLERATED WELL. NO DISTRESS, CALM, ALERT, RESP UNLABORED. SKIN WARM AND DRY. COMMUNICATES CLEARLY
[2020-11-28 10:20] LABS: BASOPHILS % (AUTO) 0.5 % (0.0-2.0); EOSINOPHILS % (AUTO) 0.5 % (0.0-4.0); HEMATOCRIT 41.7 % (36-54); HEMOGLOBIN 14.3 g/dL (14.0-18.0); LYMPHOCYTES # (AUTO) 0.7 K/uL (1.0-5.5); LYMPHOCYTES % (AUTO) 17.3 % (20.5-51.5); MEAN CORPUSCULAR HEMOGLOBIN 34 pg (27-31); MEAN CORPUSCULAR HGB CONC 34 % (32-36); MEAN CORPUSCULAR VOLUME 98 fL (79.0-98.0); MONOCYTES # (AUTO) 0.3 K/uL (0.0-1.0); MONOCYTES % (AUTO) 8.7 % (1.7-9.3); NEUTROPHILS # (AUTO) 2.9 K/uL (1.8-7.7); PLATELET COUNT (AUTO) 180 K/uL (130-430); RED BLOOD CELL COUNT(AUTO) 4.26 MIL/uL (4.2-6.2); RED CELL DISTRIBUTION WIDTH 14.1 % (9.0-15.0)
[2020-11-28 10:33] LABS: CALCIUM 9.1 mg/dL (8.4-11.0); CREATININE 0.83 mg/dL (0.55-1.30); POTASSIUM 3.5 mmol/L (3.5-5.1)
[2020-11-28 10:40] LABS: TOTAL BILIRUBIN 1.1 mg/dL (0.0-1.0)
[2020-11-28 10:58] LABS: BILIRUBIN,URINE NEGATIVE (NEGATIVE); BLOOD, URINE NEGATIVE (NEGATIVE); CLARITY/URINE CLEAR (CLEAR); COLOR,URINE YELLOW (YELLOW); GLUCOSE,URINE NEGATIVE (NEGATIVE); KETONES,URINE NEGATIVE (NEGATIVE); LEUKOCYTE ESTERASE ,URINE NEGATIVE (NEGATIVE); NITRITE, URINE NEGATIVE (NEGATIVE); PROTEIN URINE NEGATIVE (NEGATIVE)
[2020-11-28] MEDS ORDERED: HYDROcodone/ACETAMIN 5-325 MG TAB (NORCO/ VICODIN) PO ONE (11:00)
--- NOTE | 2020-11-28 12:05 | NUR ---
TELE ADMIT AV LOPEZ SYNCOPE
--- NOTE | 2020-11-28 12:50 | NUR ---
OFF TO RADIOLOGY VIA WHEELCHAIR, CALM, ALERT, NO DISTRESS
--- NOTE | 2020-11-28 13:13 | NUR ---
SITTING UP MEAL PROVIDED, NO DISTRESS
--- NOTE | 2020-11-28 14:30 | NUR ---
Pt resting quietly in no distress awaiting Tele bed assignment.
--- NOTE | 2020-11-28 15:55 | NUR ---
Patient will be admitted to care of Dr. Edwards. Admitted to Tele unit. Will go to room 119B. Belongings list completed. Complete and up to date summary report printed. SBAR report to be given at bedside with opportunity for questions.
--- NOTE | 2020-11-28 15:56 | NUR ---
Transfer to Tele via ACLS protocol. Licensed nurse present. IV present no signs or symptoms of infiltration.
[2020-11-28 16:15] VITALS: BP_SYST 132
--- NOTE | 2020-11-28 16:15 | NUR ---
Admission Note Received patient from ER with diagnosis of syncope. Initial Plan of Care discussed-patient verbalized understanding. . Oriented to room, call light, pain management and safety.
--- NOTE | 2020-11-28 16:26 | NUR ---
CONSULT NEUROLOGY SYNCOPE AKSHAT ANDINO SENT TO DR GRULLON
--- NOTE | 2020-11-28 16:31 | NUR ---
CONSULT CARDIOLOGY SYNCOPE MIKAYLA GRADY [phone] S/W XAVIER DAVIS
--- NOTE | 2020-11-28 18:15 | NUR ---
GONZALEZ CATH GONZALEZ CATH: PT C/O urinary retention. as per pt pt self catheterize with 24 [place]ank[place] in and out catheter.pt requesting for indwelling catheter. called dr caceres and notified. new order received for gonzalez insertion. # 22 FR Gonzalez catheter with 30 cc bulb inserted with use of sterile technique. Bulb inflated with 25cc sterile water. Immediate return of 400 cc urine noted. Bedside drainage bag placed below level of bladder. Pt tolerated procedure .will conitnue to monitor
--- NOTE | 2020-11-28 19:20 | NUR ---
OPENING NOTE/DR. JOSHI AT BEDSIDE BEDSIDE REPORT RECEIVED FROM DAYSWAFT NURSE. PATIENT RECEIVED LYING IN BED, AWAKE, NO S/S OF ACUTE DISTRESS NOTED. BREATHING EVEN AND UNLABORED. HOB SLIGHTLY RAISED. DR. JOSHI AT BEDSIDE, TALKING TO PATIENT. MORGAN ATTACHED, SECURED, AND DRAINING BY GRAVITY. CALL LIGHT WITH PATIENT. IV SITE IS PATENT, NO SIGNS OF INFILTRATION OR INFECTION NOTED. BED IS LOCKED AND AT LOWEST POSITION. WILL CONTINUE TO MONITOR.
[2020-11-28] MEDS ORDERED: ALBUTEROL MDI INHALATION 8 GM INH INH PRN (19:45)
[2020-11-28] MEDS ORDERED: NALOXONE HCL 0.4 MG/ML AMP (NARCAN) IVP PRN (19:45)
[2020-11-28 20:00] VITALS: BP_SYST 127
[2020-11-28] MEDS: OXYCODONE/ACETAMINOPHEN *10*mg/325 mg TABLET PO PRN (20:31)
[2020-11-28] MEDS: LACOSAMIDE 100 MG TABLET PO SCH (20:31)
[2020-11-28] MEDS ORDERED: DICYCLOMINE HCL 20 MG/2 ML AMP IM SCH (21:00)
[2020-11-28] MEDS: OXcarbazepine 150 MG TABLET(TRILEPTAL) PO SCH (21:38)
[2020-11-28] MEDS: levETIRAcetam 500 MG TABLET PO SCH (21:39)
[2020-11-28] MEDS: LORazepam 1 MG TABLET PO PRN (21:39)
[2020-11-29] VITALS: BP_SYST 118
--- NOTE | 2020-11-29 | NUR ---
ROUNDS PATIENT IN BED, ASLEEP, NO SIGNS OF DISCOMFORT NOTED. CHEST RISE AND FALL EVEN BILATERALLY. CALL LIGHT WITH PATIENT. WILL CONTINUE TO MONITOR .
[2020-11-29] MEDS: OXYCODONE/ACETAMINOPHEN *10*mg/325 mg TABLET PO PRN ×4 (01:54→20:12)
[2020-11-29] MEDS: LORazepam 1 MG TABLET PO PRN ×2 (04:09→21:15)
[2020-11-29] MEDS: HYDROcodone/ACETAMIN 5-325 MG TAB (NORCO/ VICODIN) PO PRN ×2 (04:09→11:04)
--- NOTE | 2020-11-29 04:48 | NUR ---
PAGED DR. JOSHI ORDERS 3RD ATTEMPT DIALED: [phone] SPOKE TO: XAVIER
[2020-11-29] MEDS ORDERED: MORPHINE 2 MG/ML INJ. SYRINGE IVP ONE (05:00)
--- NOTE | 2020-11-29 05:08 | NUR ---
HIGH ALERT NOTE/MORPHINE Called Dr. JOSHI back, identified within the medical roster to verify physician authenticity. MD ordered morphine one time order. will carry out.
[2020-11-29] MEDS ORDERED: MORPHINE 2 MG/ML INJ. SYRINGE ONE (05:20)
--- NOTE | 2020-11-29 06:36 | NUR ---
CLOSING NOTE PATIENT IN BED, ASLEEP, NO S/S OF ACUTE DISTRESS NOTED. BREATHING EVEN AND UNLABORED. IV SITE PATENT, NO SIGNS OF INFILTRATION OR INFECTION NOTED. MORGAN ATTACHED, SECURED, AND DRAINING BY GRAVITY. ALL NEEDS MET. FALL AND SAFETY PRECAUTIONS MAINTAINED THROUGHOUT SHIFT. WILL CONTINUE TO MONITOR UNTIL PATIENT CARE IS ENDORSED TO ONCOMING DAYSHIFT NURSE.
[2020-11-29] MEDS ORDERED: DICY10CA13 PO (06:48)
[2020-11-29] MEDS ORDERED: ALBUTEROL SULFATE 0.083% 2.5 MG/3 ML VIAL.NEB INH PRN (07:00)
--- NOTE | 2020-11-29 07:30 | NUR ---
AM ROUNDS: PATIENT RESTING DURING ROUNDS. NO ACUTE DISTRESS. CONTINUE TO MONITOR.
[2020-11-29] MEDS: PANTOPRAZOLE SODIUM 40 MG TAB PO SCH (08:33)
[2020-11-29] MEDS: LACOSAMIDE 100 MG TABLET PO SCH ×2 (08:33→21:06)
[2020-11-29] MEDS: OXcarbazepine 150 MG TABLET(TRILEPTAL) PO SCH ×2 (08:34→21:06)
[2020-11-29] MEDS: levETIRAcetam 500 MG TABLET PO SCH ×2 (08:35→21:07)
[2020-11-29] MEDS: DICYCLOMINE HCL 10 MG CAPSULE PO SCH ×4 (08:35→21:07)
[2020-11-29 08:36] VITALS: BP_SYST 125
[2020-11-29] MEDS ORDERED: LANSOPRAZOLE 30 MG CAPSULE.DR PO SCH (09:00)
[2020-11-29 12:41] VITALS: BP_SYST 110
--- NOTE | 2020-11-29 14:04 | NUR ---
CONSULTATION PAGED/CALLED Reason for Consultation: PAINMANAGEMENT Person Who was Notified: Consulting Physician: CHRIS [employer]p [employer] Specialty: NEUROSURGEON Ordering Physician: ADI
[2020-11-29] MEDS: GABAPENTIN 300 MG CAPSULE PO SCH ×2 (15:39→21:07)
[2020-11-29] MEDS ORDERED: NALOXONE HCL 0.4 MG/ML AMP (NARCAN) IVP PRN (15:45)
--- NOTE | 2020-11-29 16:14 | NUR ---
DC TELEMETRY: DOWNGRADE PATIENT TO MEDICAL SURGICAL UNIT ORDERED BY DR Robret JOSHI.
[2020-11-29] MEDS: HYDROmorphone 2 MG TAB PO PRN ×2 (16:33→22:27)
[2020-11-29 16:42] VITALS: BP_SYST 112
--- NOTE | 2020-11-29 18:36 | NUR ---
END OF SHIFT: PATIENT STABLE. SAFETY MEASURES RENDERED.MORGAN IN PLACED,DRAINING TO MODERATE LUC URINE.CALL LIGHT WITH IN REACH. PAIN MANAGEMENT ADDRESSED BY DR Robert JOSHI.AWAITS DR Robert PEREZ TO SEE PATIENT.
[2020-11-30] MEDS: OXYCODONE/ACETAMINOPHEN *10*mg/325 mg TABLET PO PRN ×3 (02:09→20:31)
[2020-11-30 06:22] LABS: CALCIUM 8.4 mg/dL (8.4-11.0); CREATININE 0.79 mg/dL (0.55-1.30); POTASSIUM 3.8 mmol/L (3.5-5.1)
[2020-11-30 06:23] LABS: BASOPHILS % (AUTO) 0.4 % (0.0-2.0); EOSINOPHILS # (AUTO) 0.1 K/uL (0.0-0.4); HEMATOCRIT 37.6 % (36-54); HEMOGLOBIN 12.7 g/dL (14.0-18.0); LYMPHOCYTES % (AUTO) 27.3 % (20.5-51.5); MEAN CORPUSCULAR HEMOGLOBIN 34 pg (27-31); MEAN CORPUSCULAR HGB CONC 34 % (32-36); MEAN CORPUSCULAR VOLUME 100 fL (79.0-98.0); MONOCYTES # (AUTO) 0.5 K/uL (0.0-1.0); MONOCYTES % (AUTO) 13.4 % (1.7-9.3); NEUTROPHILS # (AUTO) 2.1 K/uL (1.8-7.7); NEUTROPHILS % (AUTO) 56.9 % (40.0-70.0); PLATELET COUNT (AUTO) 160 K/uL (130-430); RED BLOOD CELL COUNT(AUTO) 3.77 MIL/uL (4.2-6.2); RED CELL DISTRIBUTION WIDTH 14.3 % (9.0-15.0); WHITE BLOOD COUNT (AUTO) 3.6 K/uL (4.8-10.8)
[2020-11-30 08:00] VITALS: BP_SYST 130
--- NOTE | 2020-11-30 08:00 | NUR ---
Opening note Patient is resting in bed A&Ox 4 no complaint of pain or discomfort. No signs or symptoms of respiratory distress. IV is patent no signs or symptoms of infiltration. Educated patient on plan of care, patient verbalized understanding. Bed is in lowest position call light within reach, fall and aspiration precautions are in place. Will continue to monitor.
[2020-11-30] MEDS: DICYCLOMINE HCL 10 MG CAPSULE PO SCH ×4 (09:12→20:32)
[2020-11-30] MEDS: PANTOPRAZOLE SODIUM 40 MG TAB PO SCH (09:13)
[2020-11-30] MEDS: OXcarbazepine 150 MG TABLET(TRILEPTAL) PO SCH ×2 (09:13→20:32)
[2020-11-30] MEDS: levETIRAcetam 500 MG TABLET PO SCH ×2 (09:14→20:31)
[2020-11-30] MEDS: LACOSAMIDE 100 MG TABLET PO SCH ×2 (09:14→20:31)
[2020-11-30] MEDS: HYDROmorphone 2 MG TAB PO PRN ×2 (09:15→15:22)
[2020-11-30] MEDS: GABAPENTIN 300 MG CAPSULE PO SCH ×3 (09:25→20:32)
--- NOTE | 2020-11-30 11:21 | NUR ---
CM note: Updated and faxed FS and clinicals to Fabian/Armando xiao.
--- NOTE | 2020-11-30 17:20 | NUR ---
RN note Spoke with Dr. Rosenberg regarding patients bloody urine output, new orders were given and place. Will continue to monitor.
--- NOTE | 2020-11-30 19:56 | NUR ---
Received bedside report. pt in bed resting. rr even and unlabored on ra. pt med surg. call light within reach. bed locked in lowest position. will continue to monitor.
[2020-11-30 20:30] VITALS: BP_SYST 140
[2020-12-01 01:22] VITALS: BP_SYST 113
[2020-12-01] MEDS: HYDROmorphone 2 MG TAB PO PRN ×2 (01:24→09:38)
[2020-12-01 06:02] VITALS: BP_SYST 118
[2020-12-01] MEDS: OXYCODONE/ACETAMINOPHEN *10*mg/325 mg TABLET PO PRN ×2 (06:03→13:15)
--- NOTE | 2020-12-01 07:39 | NUR ---
Pt in bed resting. urine sent to lab during shift. gonzalez cath irrigated with bright red urine. md at bedside. report given to day shift rn.
[2020-12-01 08:00] VITALS: BP_SYST 100
[2020-12-01] MEDS: LACOSAMIDE 100 MG TABLET PO SCH (09:30)
[2020-12-01] MEDS: DICYCLOMINE HCL 10 MG CAPSULE PO SCH ×2 (09:30→12:42)
[2020-12-01] MEDS: PANTOPRAZOLE SODIUM 40 MG TAB PO SCH (09:31)
[2020-12-01] MEDS: GABAPENTIN 300 MG CAPSULE PO SCH (09:31)
[2020-12-01] MEDS: levETIRAcetam 500 MG TABLET PO SCH (09:31)
[2020-12-01] MEDS: OXcarbazepine 150 MG TABLET(TRILEPTAL) PO SCH (09:32)
[2020-12-01] MEDS: HYDROcodone/ACETAMIN 5-325 MG TAB (NORCO/ VICODIN) PO PRN (11:31)
[2020-12-01] MEDS ORDERED: HYDR2TAB7 PO (13:49)
--- NOTE | 2020-12-01 14:00 | NUR ---
PATIENT DISCHARGED DISCHARGE TEACHING COMPLETED. PATIENT NEED'S TO FOLLOW UP WITH PRIMARY AND FOLLOW UPWITH UROLOGY. MUST COME BACK TO HOSPITAL IF CATHETER CLOTS MUST RETURN IMMEDIATELY. ATTENDING IN TO SEE PATIENT RIGHT AT DISCHARGE TO REINFORCE PLAN OF CARE INSTRUCTED TO FOLLOW UP WITH prism measurer IN 5 TO 7 DAY'S. MEDICATIONS WENT OVER WITH PATIENT MAY PICK MED'S UP AT LOCAL PHARMACY. PATIENT HAS GOOD SUPPLY NOW IN ALL MEDICATION INCLUDING SEISURE MED'S AND PAIN MEDICATION
[2020-12-01 14:06] VITALS: BP_SYST 108
[2020-12-01 14:33] VITALS: BP_SYST 108
== END 2020-12-01 14:45 | disposition home or self-care (01) ==
LOC: SED 08:43 → STU 12:01 → SMU 11-29 20:32
PROVIDERS: ADMIT Preventive Medicine Preventive Medicine/Occupational Environmental Medicine; ATTEND Preventive Medicine Preventive Medicine/Occupational Environmental Medicine
DX: R55 Syncope and collapse (principal); Z20.822 Contact with and (suspected) exposure to COVID-19; E11.65 Type 2 diabetes mellitus with hyperglycemia; N40.1 Benign prostatic hyperplasia with lower urinary tract symptoms; R31.9 Hematuria, unspecified; I10 Essential (primary) hypertension; N28.9 Disorder of kidney and ureter, unspecified; G40.909 Epilepsy, unspecified, not intractable, without status epilepticus; H54.61 Unqualified visual loss, right eye, normal vision left eye; M45.9 Ankylosing spondylitis of unspecified sites in spine; D72.819 Decreased white blood cell count, unspecified; R74.01 Elevation of levels of liver transaminase levels; G89.4 Chronic pain syndrome; E78.5 Hyperlipidemia, unspecified; I45.10 Unspecified right bundle-branch block; I44.4 Left anterior fascicular block; Z79.899 Other long term (current) drug therapy; Z95.0 Presence of cardiac pacemaker
CPT/HCPCS: 36415 ×2; 70450; 71045; 72110; 76376; 76770; 80048; 80053; 81003; 83605; 84484; 85025 ×2; 87040; 87086 ×2; 87426; 93005; 93306; 93880; 96374; 99285; G0378 ×4; J0500; J2270

== ENCOUNTER 2021-01-18 21:38 | Emergency (ER) | payer MEDICAID, SELFPAY ==
[~2021-01-18] VITALS: Ht 167.6 cm; Wt 81.6 kg
[~2021-01-18 21:38] MED LIST changes: -BENI20 PO; +DICY10CA13 PO; +HYDR2TAB7 PO
[2021-01-18 21:50] VITALS: BP_SYST 116
--- NOTE | 2021-01-18 22:27 | NUR ---
Patient to ER bed 1 to gown for evaluation. Side rails up. Report given to ARIAN DEJESUS.
--- NOTE | 2021-01-18 22:35 | NUR ---
Patient present to the ed complaining of chronic back pain. Reports increasling lower back pain with electrical stimulator malfunctioning. Patient also complains of diarrhea for several days and fecal incontinence twice today. Patient reports able to void today. Pain 12/25. Ambulates with cane and braces.
--- NOTE | 2021-01-18 23:18 | NUR ---
ER Dr. Matthew Reina at bedside examining patient.
[2021-01-18] MEDS ORDERED: DEXAMETHASONE SOD PHOSPHATE 10 MG/ML VIAL IVP ONE (23:30)
[2021-01-18] MEDS ORDERED: MORPHINE 4 MG INJ. 4 MG/ML VIAL IVP ONE (23:30)
[2021-01-18] MEDS ORDERED: NACL 0.9% 1,000 ML IV ONE (23:30)
[2021-01-18] MEDS ORDERED: LORazepam 2 MG/ML VIAL IVP ONE (23:30)
[2021-01-18 23:50] LABS: BASOPHILS % (AUTO) 0.7 % (0.0-2.0); EOSINOPHILS # (AUTO) 0.1 K/uL (0.0-0.4); EOSINOPHILS % (AUTO) 1.5 % (0.0-4.0); HEMATOCRIT 36.7 % (36-54); HEMOGLOBIN 12.6 g/dL (14.0-18.0); LYMPHOCYTES # (AUTO) 1.5 K/uL (1.0-5.5); LYMPHOCYTES % (AUTO) 29.8 % (20.5-51.5); MEAN CORPUSCULAR HEMOGLOBIN 34 pg (27-31); MEAN CORPUSCULAR HGB CONC 34 % (32-36); MEAN CORPUSCULAR VOLUME 97 fL (79.0-98.0); MONOCYTES # (AUTO) 0.6 K/uL (0.0-1.0); MONOCYTES % (AUTO) 11.8 % (1.7-9.3); NEUTROPHILS # (AUTO) 2.9 K/uL (1.8-7.7); NEUTROPHILS % (AUTO) 56.2 % (40.0-70.0); PLATELET COUNT (AUTO) 182 K/uL (130-430); RED BLOOD CELL COUNT(AUTO) 3.78 MIL/uL (4.2-6.2); RED CELL DISTRIBUTION WIDTH 13.2 % (9.0-15.0); WHITE BLOOD COUNT (AUTO) 5.2 K/uL (4.8-10.8)
[2021-01-19 00:08] LABS: ALBUMIN 3.6 g/dL (3.4-4.8); CALCIUM 8.9 mg/dL (8.4-11.0); CREATININE 0.99 mg/dL (0.55-1.30); POTASSIUM 4.1 mmol/L (3.5-5.1); TOTAL BILIRUBIN 0.3 mg/dL (0.0-1.0)
[2021-01-19 00:27] LABS: ERYTHROCYTE SEDIMENTATION RATE 13 MM/HR (0-15)
--- NOTE | 2021-01-19 00:30 | NUR ---
Patient off unit to CT Scan.
--- NOTE | 2021-01-19 00:48 | NUR ---
Patient resting comfortably in bed. no acute distress noted
--- NOTE | 2021-01-19 01:47 | NUR ---
Patient requesting pain medication. Dr Markham at bedside re examining patient
[2021-01-19] MEDS ORDERED: HYDROmorphone 1 MG/ML INJ. CARTRIDGE IVP ONE (02:00)
[2021-01-19] MEDS ORDERED: LORazepam 2 MG/ML VIAL IVP ONE (02:00)
--- NOTE | 2021-01-19 02:10 | NUR ---
Rectal exam performed by Dr. Mccullough with Myself at bedside during procedure. Patient tolerated well.
[2021-01-19] MEDS ORDERED: CYCL10TA24 PO (02:21)
[2021-01-19] MEDS ORDERED: HYDR-3917 PO (02:21)
[2021-01-19] MEDS ORDERED: PRED20TA PO (02:21)
[2021-01-19 02:30] VITALS: BP_SYST 121
--- NOTE | 2021-01-19 02:30 | NUR ---
Patient given written and verbal discharge instructions and verbalizes understanding. ER MD discussed with patient the results and treatment provided. Patient in stable condition. ID arm band removed. IV catheter removed intact and dressing applied, no active bleeding. Rx of flexeril, [place] and prednisone given. Patient educated on pain management and to follow up with PMD. Pain Scale 2/10 Opportunity for questions provided and answered. Medication side effect fact sheet provided.
== END 2021-01-19 02:30 | disposition home or self-care (01) ==
LOC: SED 21:38
DX: T85.193A Other mechanical complication of implanted electronic neurostimulator, generator, initial encounter (principal); G89.29 Other chronic pain; M54.50 Low back pain, unspecified; I10 Essential (primary) hypertension; E11.9 Type 2 diabetes mellitus without complications; Z88.1 Allergy status to other antibiotic agents; Z88.8 Allergy status to other drugs, medicaments and biological substances; Z79.899 Other long term (current) drug therapy
CPT/HCPCS: 36415; 72132; 76376; 80053; 85025; 85651; 96361; 96374; 96375; 96376; 99285; J1100; J1170; J2060; J2270; J7030; Q9967

== ENCOUNTER 2021-01-31 20:06 | Emergency (ER) | payer MEDICAID, SELFPAY ==
[~2021-01-31] VITALS: Ht 167.6 cm; Wt 81.6 kg
[~2021-01-31 20:06] MED LIST changes: +CYCL10TA24 PO; +PRED20TA PO
[2021-01-31 20:14] VITALS: BP_SYST 117
--- NOTE | 2021-01-31 20:30 | NUR ---
Patient to ER bed 7 to gown for evaluation. Side rails up.
--- NOTE | 2021-01-31 20:31 | NUR ---
ER Dr. Truong at bedside examining patient.
--- NOTE | 2021-01-31 20:40 | NUR ---
Patient refused pain medication. Dr. Truong notified.
--- NOTE | 2021-01-31 20:43 | NUR ---
Dr. Truong at bedside speaking with patient.
--- NOTE | 2021-01-31 20:44 | NUR ---
Patient requesting Dilaudid medication. aware.
[2021-01-31] MEDS ORDERED: MORPHINE SULFATE 10 MG/ML VIAL IM ONE (20:45)
--- NOTE | 2021-01-31 20:48 | NUR ---
Patient given written and verbal discharge instructions and verbalizes understanding. ER MD discussed with patient the results and treatment provided. Patient in stable condition. ID arm band removed. no iv No Rx given. Patient educated on pain management and to follow up with PMD. Pain Scale 10/10. Opportunity for questions provided and answered. Medication side effect fact sheet provided.
== END 2021-01-31 20:48 | disposition left against medical advice (07) ==
LOC: SED 20:06
DX: G89.29 Other chronic pain (principal); M54.9 Dorsalgia, unspecified; I10 Essential (primary) hypertension; E11.9 Type 2 diabetes mellitus without complications; Z88.1 Allergy status to other antibiotic agents; Z88.8 Allergy status to other drugs, medicaments and biological substances; Z79.899 Other long term (current) drug therapy
CPT/HCPCS: 99281; J2270

== ENCOUNTER 2021-04-19 19:06 | Emergency (ER) | payer MEDICAID, SELFPAY ==
[~2021-04-19] VITALS: Ht 167.6 cm; Wt 86.2 kg
[2021-04-19 19:11] VITALS: BP_SYST 109
--- NOTE | 2021-04-19 19:15 | NUR ---
Note cecilyarpita in EDM - 04/19/21 at 2147 by SDEDAFJ Pt brought by self, A&Ox4, pt presents to ER with R wrist pain after falling from skateboard, swelling noted, skin pink and warm, cap refill <3, VSS.
[2021-04-19 21:15] LABS: CALCIUM 9.1 mg/dL (8.4-11.0); CREATININE 0.83 mg/dL (0.55-1.30); POTASSIUM 4.2 mmol/L (3.5-5.1)
[2021-04-19 21:22] LABS: ALBUMIN 3.9 g/dL (3.4-4.8); PHOSPHORUS 4.2 mg/dL (2.7-4.5); TOTAL BILIRUBIN 0.7 mg/dL (0.0-1.0)
[2021-04-19 21:27] LABS: BASOPHILS % (AUTO) 0.4 % (0.0-2.0); EOSINOPHILS % (AUTO) 0.8 % (0.0-4.0); HEMATOCRIT 43.6 % (36-54); HEMOGLOBIN 14.6 g/dL (14.0-18.0); LYMPHOCYTES # (AUTO) 1.6 K/uL (1.0-5.5); LYMPHOCYTES % (AUTO) 30.4 % (20.5-51.5); MEAN CORPUSCULAR HEMOGLOBIN 32 pg (27-31); MEAN CORPUSCULAR HGB CONC 33 % (32-36); MEAN CORPUSCULAR VOLUME 95 fL (79.0-98.0); MONOCYTES # (AUTO) 0.6 K/uL (0.0-1.0); MONOCYTES % (AUTO) 12.2 % (1.7-9.3); NEUTROPHILS # (AUTO) 2.9 K/uL (1.8-7.7); NEUTROPHILS % (AUTO) 56.2 % (40.0-70.0); PLATELET COUNT (AUTO) 186 K/uL (130-430); RED BLOOD CELL COUNT(AUTO) 4.61 MIL/uL (4.2-6.2); WHITE BLOOD COUNT (AUTO) 5.1 K/uL (4.8-10.8)
[2021-04-19] MEDS ORDERED: MORPHINE 4 MG INJ. 4 MG/ML VIAL IM ONE (22:45)
[2021-04-19] MEDS ORDERED: HYDROcodone/ACETAMIN 5-325 MG TAB (NORCO/ VICODIN) ONE (23:13)
[2021-04-19] MEDS ORDERED: HYDROcodone/ACETAMIN 5-325 MG TAB (NORCO/ VICODIN) PO ONE (23:15)
--- NOTE | 2021-04-19 23:17 | NUR ---
assessment hurting mostly in the neck and all over his hands. vital sign is BP 107/77, Pulse 98 SpO2 98%.
--- NOTE | 2021-04-19 23:20 | NUR ---
PT was upset since the he didnt want to have the meds on deltoid and ventogluteal asked the nurse to initiate the IV but he said he hard stick. DR amezcua to [facility] PO. Pt decided to leave on his own since he was upset with everything is going on.
[2021-04-19 23:56] VITALS: BP_SYST 109
--- NOTE | 2021-04-19 23:58 | NUR ---
Patient given written and verbal discharge instructions and verbalizes understanding. Arti Davis MD discussed with patient the results and treatment provided. Patient in stable condition. Patient educated on pain management and to follow up with PMD. Pain Scale 0/10 Opportunity for questions provided and answered. Medication side effect fact sheet provided.
== END 2021-04-19 23:56 | disposition home or self-care (01) ==
LOC: SED 19:06
DX: I73.9 Peripheral vascular disease, unspecified (principal); I77.1 Stricture of artery; E11.9 Type 2 diabetes mellitus without complications; I10 Essential (primary) hypertension; Z88.1 Allergy status to other antibiotic agents; Z88.6 Allergy status to analgesic agent; Z88.8 Allergy status to other drugs, medicaments and biological substances
CPT/HCPCS: 36415; 71045; 80053; 83735; 84100; 85025; 93005; 93923; 99285; J2270

== ENCOUNTER 2021-11-26 20:02 | Emergency (ER) | payer MEDICAID ==
[~2021-11-26] VITALS: Ht 167.6 cm; Wt 90.3 kg
[2021-11-26 20:17] VITALS: BP_SYST 134
--- NOTE | 2021-11-26 20:23 | NUR ---
PT AMBULATEDF WITH STAEDY GAIT USING HIS CANE TO RM 4.
[2021-11-26 21:14] LABS: BASOPHILS % (AUTO) 0.9 % (0.0-2.0); EOSINOPHILS # (AUTO) 0.1 K/uL (0.0-0.4); EOSINOPHILS % (AUTO) 1.4 % (0.0-4.0); HEMATOCRIT 38.8 % (36-54); LYMPHOCYTES # (AUTO) 1.1 K/uL (1.0-5.5); LYMPHOCYTES % (AUTO) 24.8 % (20.5-51.5); MEAN CORPUSCULAR VOLUME 94 fL (79.0-98.0); MONOCYTES # (AUTO) 0.4 K/uL (0.0-1.0); MONOCYTES % (AUTO) 9.7 % (1.7-9.3); NEUTROPHILS # (AUTO) 2.9 K/uL (1.8-7.7); NEUTROPHILS % (AUTO) 63.2 % (40.0-70.0); PLATELET COUNT (AUTO) 181 K/uL (130-430); RED BLOOD CELL COUNT(AUTO) 4.12 MIL/uL (4.2-6.2); RED CELL DISTRIBUTION WIDTH 14.2 % (9.0-15.0); WHITE BLOOD COUNT (AUTO) 4.6 K/uL (4.8-10.8)
[2021-11-26 21:42] LABS: ANION GAP 11 (5-15); CALCIUM 8.7 mg/dL (8.4-11.0); CHLORIDE 93 mmol/L (98-107); CREATININE 0.97 mg/dL (0.55-1.30); GLUCOSE 136 mg/dL (70-99); POTASSIUM 3.4 mmol/L (3.5-5.1); SODIUM SERUM 129 mmol/L (136-145); UREA NITROGEN, BLOOD 11 mg/dL (8-21)
[2021-11-26 21:47] LABS: ALANINE AMINOTRANSFERASE 57 U/L (12-78); ALBUMIN 3.9 g/dL (3.4-4.8); AMYLASE 99 U/L (0-100); ASPARTATE AMINOTRANSFERASE 84 U/L (10-37); LIPASE 219 U/L (73-393)
--- NOTE | 2021-11-26 22:11 | NUR ---
Pt provided urine
[2021-11-26 22:27] LABS: BILIRUBIN,URINE NEGATIVE (NEGATIVE); BLOOD, URINE NEGATIVE (NEGATIVE); CLARITY/URINE CLEAR (CLEAR); COLOR,URINE YELLOW (YELLOW); GLUCOSE,URINE NEGATIVE (NEGATIVE); KETONES,URINE NEGATIVE (NEGATIVE); LEUKOCYTE ESTERASE ,URINE NEGATIVE (NEGATIVE); NITRITE, URINE NEGATIVE (NEGATIVE); PH,URINE 7.5 (5.0-8.0); PROTEIN URINE NEGATIVE (NEGATIVE)
[2021-11-26 22:45] LABS: C-REACTIVE PROTEIN QUANT < 0.2 mg/dL (0-0.5); GFR AFRICAN AMERICAN 107 mL/min (>90)
[2021-11-26] MEDS ORDERED: MORPHINE SULFATE 10 MG/ML VIAL IM ONE (22:45)
--- NOTE | 2021-11-26 23:39 | NUR ---
Bladder scanner urine volume 22ml
--- NOTE | 2021-11-27 03:10 | NUR ---
Patient given written and verbal discharge instructions and verbalizes understanding. ER MD discussed with patient the results and treatment provided. Patient in stable condition. ID arm band removed. Rx of given. Patient educated on pain management and to follow up with PMD. Pain Scale 2/10. Opportunity for questions provided and answered.
== END 2021-11-27 03:08 | disposition home or self-care (01) ==
LOC: SED 20:02
DX: M54.50 Low back pain, unspecified (principal); G89.29 Other chronic pain; E11.9 Type 2 diabetes mellitus without complications; I10 Essential (primary) hypertension; Z88.1 Allergy status to other antibiotic agents; Z88.6 Allergy status to analgesic agent; Z88.8 Allergy status to other drugs, medicaments and biological substances; Z79.899 Other long term (current) drug therapy
CPT/HCPCS: 99284; 72128; 80053; 82150; 83690; 85025; 86140; 36415; 72131; 74176; 96372; 81003; 76376; J2270

== ENCOUNTER 2022-09-20 10:58 | Emergency (ER) | payer MEDICAID ==
[~2022-09-20] VITALS: Ht 167.6 cm; Wt 86.2 kg
[2022-09-20 11:12] VITALS: RESP 18; TEMP 98.3
[2022-09-20] MEDS ORDERED: OXcarbazepine 150 MG TABLET(TRILEPTAL) PO ONE (11:15)
[2022-09-20] MEDS ORDERED: OXcarbazepine 150 MG TABLET(TRILEPTAL) PO SCH (11:15)
[2022-09-20] MEDS ORDERED: MORPHINE 4 MG INJ. 4 MG/ML VIAL IM ONE (11:15)
[2022-09-20] MEDS ORDERED: levETIRAcetam 500 MG TABLET PO ONE (11:15)
[2022-09-20] MEDS ORDERED: predniSONE 20 MG TABLET PO ONE (11:15)
[2022-09-20 11:28] LABS: ERYTHROCYTE SEDIMENTATION RATE 48 MM/HR (0-15)
[2022-09-20 11:31] LABS: BASOPHILS % (AUTO) 0.8 % (0.0-2.0); EOSINOPHILS % (AUTO) 0.4 % (0.0-4.0); HEMATOCRIT 43.1 % (36-54); HEMOGLOBIN 14.6 g/dL (14.0-18.0); LYMPHOCYTES # (AUTO) 1.1 K/uL (1.0-5.5); MEAN CORPUSCULAR HEMOGLOBIN 33 pg (27-31); MEAN CORPUSCULAR HGB CONC 34 % (32-36); MEAN CORPUSCULAR VOLUME 98 fL (79.0-98.0); MONOCYTES # (AUTO) 0.6 K/uL (0.0-1.0); MONOCYTES % (AUTO) 10.9 % (1.7-9.3); NEUTROPHILS # (AUTO) 3.9 K/uL (1.8-7.7); NEUTROPHILS % (AUTO) 67.9 % (40.0-70.0); PLATELET COUNT (AUTO) 221 K/uL (130-430); RED BLOOD CELL COUNT(AUTO) 4.39 MIL/uL (4.2-6.2); WHITE BLOOD COUNT (AUTO) 5.7 K/uL (4.8-10.8)
[2022-09-20 11:48] LABS: CALCIUM 8.6 mg/dL (8.4-11.0); CREATININE 0.98 mg/dL (0.55-1.30)
[2022-09-20 11:53] LABS: TOTAL BILIRUBIN 0.9 mg/dL (0.0-1.0)
[2022-09-20] MEDS ORDERED: TRAM50TA2 PO (14:09)
[2022-09-20] MEDS ORDERED: PRED20TA PO (14:09)
[2022-09-20 14:51] VITALS: BP_SYST 136; PULSE 91; RESP 18; TEMP 98.3; O2SAT 98
== END 2022-09-20 14:50 | disposition home or self-care (01) ==
LOC: SED 10:58
DX: R56.9 Unspecified convulsions (principal); M32.10 Systemic lupus erythematosus, organ or system involvement unspecified; M54.50 Low back pain, unspecified; E11.9 Type 2 diabetes mellitus without complications; I10 Essential (primary) hypertension; Z88.1 Allergy status to other antibiotic agents; Z88.6 Allergy status to analgesic agent; Z88.8 Allergy status to other drugs, medicaments and biological substances; Z79.899 Other long term (current) drug therapy
CPT/HCPCS: 99284; 96374; 80053; 85025; 85651; 36415; 83605; 82397; J7512; J2270

== ENCOUNTER 2023-05-06 10:55 | Emergency (ER) | payer OTHER ==
[~2023-05-06] VITALS: Ht 167.6 cm; Wt 84.4 kg
[~2023-05-06 10:55] MED LIST changes: +DICY-14 PO; -DICY10CA13 PO; +OXCA150T5 PO; +TRAM50TA2 PO
[2023-05-06 11:37] VITALS: BP_SYST 121; PULSE 82; RESP 17; TEMP 98; O2SAT 96
[2023-05-06] MEDS: HYDROmorphone 1 MG/ML INJ. CARTRIDGE IM ONE ×2 (11:51→14:06)
[2023-05-06 12:30] LABS: ANION GAP 9 (5-15); CALCIUM 9.2 mg/dL (8.4-11.0); CARBON DIOXIDE 24 mmol/L (23-29); CHLORIDE 106 mmol/L (98-107); CREATININE 0.94 mg/dL (0.55-1.30); GFR AFRICAN AMERICAN 110 mL/min (>90); GLUCOSE 99 mg/dL (74-106); POTASSIUM 4.6 mmol/L (3.5-5.1); SODIUM SERUM 139 mmol/L (136-145); UREA NITROGEN, BLOOD 13 mg/dL (8-21)
[2023-05-06 12:33] LABS: GFR NON AFRICAN-AMERICAN 91 mL/min (>90)
[2023-05-06 12:57] LABS: BASOPHILS % (AUTO) 0.5 % (0.0-2.0); EOSINOPHILS % (AUTO) 0.3 % (0.0-4.0); HEMATOCRIT 40.6 % (36-54); LYMPHOCYTES % (AUTO) 24.8 % (20.5-51.5); MEAN CORPUSCULAR HEMOGLOBIN 34 pg (27-31); MEAN CORPUSCULAR HGB CONC 35 % (32-36); MEAN CORPUSCULAR VOLUME 98 fL (79.0-98.0); MONOCYTES # (AUTO) 0.3 K/uL (0.0-1.0); MONOCYTES % (AUTO) 8.2 % (1.7-9.3); NEUTROPHILS # (AUTO) 2.7 K/uL (1.8-7.7); NEUTROPHILS % (AUTO) 66.2 % (40.0-70.0); PLATELET COUNT (AUTO) 195 K/uL (130-430); RED BLOOD CELL COUNT(AUTO) 4.16 MIL/uL (4.2-6.2); RED CELL DISTRIBUTION WIDTH 13.8 % (9.0-15.0); WHITE BLOOD COUNT (AUTO) 4.1 K/uL (4.8-10.8)
[2023-05-06 14:16] VITALS: BP_SYST 118; PULSE 63; RESP 18; TEMP 98; O2SAT 100
== END 2023-05-06 14:15 | disposition home or self-care (01) ==
LOC: SED 10:55
DX: G89.29 Other chronic pain (principal); R07.89 Other chest pain; E11.9 Type 2 diabetes mellitus without complications; I10 Essential (primary) hypertension; Z88.1 Allergy status to other antibiotic agents; Z88.6 Allergy status to analgesic agent; Z88.8 Allergy status to other drugs, medicaments and biological substances; Z79.899 Other long term (current) drug therapy; Z98.890 Other specified postprocedural states; Z95.0 Presence of cardiac pacemaker
CPT/HCPCS: 99284; 80048; 85025; 84484; 36415; 93005; 96372; J1170

== ENCOUNTER 2023-07-15 00:46 | Emergency (ER) | payer OTHER ==
[~2023-07-15] VITALS: Ht 167.6 cm; Wt 78.0 kg
[2023-07-15 00:57] VITALS: BP_SYST 117; PULSE 78; RESP 20; TEMP 97.8; O2SAT 96
[2023-07-15] MEDS: LIDOCAINE 1% 10 MG/ML, 20 ML MDV INJ ONE (01:58)
[2023-07-15] MEDS: HYDROcodone/ACETAMIN 5-325 MG TAB (NORCO/ VICODIN) PO ONE (01:58)
[2023-07-15] MEDS: BACITRACIN 1 GM OINT TP ONE (03:00)
[2023-07-15] MEDS: LIDOCAINE PATCH 5% 1 EA TP ONE (03:12)
[2023-07-15 04:05] LABS: CALCIUM 8.5 mg/dL (8.4-11.0); CREATININE 0.77 mg/dL (0.55-1.30); POTASSIUM 3.8 mmol/L (3.5-5.1)
[2023-07-15 04:28] LABS: BASOPHILS % (AUTO) 0.5 % (0.0-2.0); EOSINOPHILS % (AUTO) 0.3 % (0.0-4.0); HEMATOCRIT 41.3 % (36-54); LYMPHOCYTES # (AUTO) 0.9 K/uL (1.0-5.5); LYMPHOCYTES % (AUTO) 13.2 % (20.5-51.5); MEAN CORPUSCULAR HEMOGLOBIN 32 pg (27-31); MEAN CORPUSCULAR HGB CONC 34 % (32-36); MEAN CORPUSCULAR VOLUME 94 fL (79.0-98.0); MONOCYTES # (AUTO) 0.6 K/uL (0.0-1.0); MONOCYTES % (AUTO) 9.2 % (1.7-9.3); NEUTROPHILS % (AUTO) 76.8 % (40.0-70.0); PLATELET COUNT (AUTO) 248 K/uL (130-430); RED BLOOD CELL COUNT(AUTO) 4.38 MIL/uL (4.2-6.2); RED CELL DISTRIBUTION WIDTH 13.7 % (9.0-15.0); WHITE BLOOD COUNT (AUTO) 6.5 K/uL (4.8-10.8)
[2023-07-15] MEDS ORDERED: BACI1OIN7 TP (04:40)
[2023-07-15 04:45] VITALS: BP_SYST 117; PULSE 78; RESP 20; TEMP 97.8; O2SAT 96
== END 2023-07-15 05:14 | disposition home or self-care (01) ==
LOC: SED 00:46
DX: S01.112A Laceration without foreign body of left eyelid and periocular area, initial encounter (principal); S80.11XA Contusion of right lower leg, initial encounter; R56.9 Unspecified convulsions; E11.9 Type 2 diabetes mellitus without complications; I10 Essential (primary) hypertension; Z88.1 Allergy status to other antibiotic agents; Z88.6 Allergy status to analgesic agent; Z88.8 Allergy status to other drugs, medicaments and biological substances; Z79.899 Other long term (current) drug therapy; W22.8XXA Striking against or struck by other objects, initial encounter; Y93.89 Activity, other specified; Y92.89 Other specified places as the place of occurrence of the external cause; Y99.8 Other external cause status
CPT/HCPCS: 36415; 70450-TC; 73590; 80048; 82948; 85025; 93005; 99285; J2001

== ENCOUNTER 2023-09-27 01:19 | Emergency (ER) | payer OTHER ==
[~2023-09-27] VITALS: Ht 167.6 cm; Wt 77.1 kg
[~2023-09-27 01:19] MED LIST changes: +BACI1OIN7 TP
[2023-09-27 01:28] VITALS: BP_SYST 131; PULSE 76; RESP 20; TEMP 97.4; O2SAT 95
[2023-09-27 04:36] VITALS: BP_SYST 113; PULSE 57; RESP 19; TEMP 98.8; O2SAT 94
== END 2023-09-27 04:35 | disposition home or self-care (01) ==
LOC: SED 01:19
DX: S00.83XA Contusion of other part of head, initial encounter (principal); S80.11XA Contusion of right lower leg, initial encounter; R56.9 Unspecified convulsions; E11.9 Type 2 diabetes mellitus without complications; I10 Essential (primary) hypertension; Z95.0 Presence of cardiac pacemaker; Z88.1 Allergy status to other antibiotic agents; Z88.5 Allergy status to narcotic agent; Z79.899 Other long term (current) drug therapy; Z79.2 Long term (current) use of antibiotics; W22.8XXA Striking against or struck by other objects, initial encounter; Y93.89 Activity, other specified; Y92.89 Other specified places as the place of occurrence of the external cause; Y99.8 Other external cause status
CPT/HCPCS: 70450-TC; 70486; 73590; 99284

== ENCOUNTER 2023-10-18 15:00 | Emergency (ER) | payer OTHER ==
[~2023-10-18] VITALS: Ht 167.6 cm; Wt 81.6 kg
[2023-10-18 15:05] VITALS: BP_SYST 119; PULSE 78; RESP 18; TEMP 98.6; O2SAT 91
[2023-10-18 15:54] LABS: BASOPHILS # (AUTO) 0.1 K/uL (0.0-0.2); EOSINOPHILS % (AUTO) 0.8 % (0.0-4.0); HEMATOCRIT 40.6 % (36-54); HEMOGLOBIN 13.9 g/dL (14.0-18.0); LYMPHOCYTES # (AUTO) 1.6 K/uL (1.0-5.5); LYMPHOCYTES % (AUTO) 26.6 % (20.5-51.5); MEAN CORPUSCULAR HEMOGLOBIN 32 pg (27-31); MEAN CORPUSCULAR HGB CONC 34 % (32-36); MEAN CORPUSCULAR VOLUME 94 fL (79.0-98.0); MONOCYTES % (AUTO) 17.2 % (1.7-9.3); NEUTROPHILS # (AUTO) 3.2 K/uL (1.8-7.7); NEUTROPHILS % (AUTO) 54.4 % (40.0-70.0); PLATELET COUNT (AUTO) 210 K/uL (130-430); RED CELL DISTRIBUTION WIDTH 14.2 % (9.0-15.0); WHITE BLOOD COUNT (AUTO) 5.8 K/uL (4.8-10.8)
[2023-10-18 16:04] LABS: CALCIUM 8.8 mg/dL (8.4-11.0); CREATININE 0.93 mg/dL (0.55-1.30); POTASSIUM 3.3 mmol/L (3.5-5.1)
[2023-10-18 16:31] LABS: BILIRUBIN,URINE 2+ (NEGATIVE); BLOOD, URINE NEGATIVE (NEGATIVE); CLARITY/URINE CLEAR (CLEAR); GLUCOSE,URINE NEGATIVE (NEGATIVE); KETONES,URINE NEGATIVE (NEGATIVE); LEUKOCYTE ESTERASE ,URINE NEGATIVE (NEGATIVE); NITRITE, URINE NEGATIVE (NEGATIVE); PROTEIN URINE 1+ (NEGATIVE)
[2023-10-18 16:41] LABS: COLOR,URINE AMBER (YELLOW)
[2023-10-18 16:42] LABS: BACTERIA,URINE FEW /HPF (None Seen); CALCIUM OXALATE CRYSTALS,UR 0-10 /HPF (None Seen); MUCUS,URINE 3+ /LPF (None Seen); RBC,URINE 0-3 /HPF (0-3); WBC,URINE 0-3 /HPF (0-3)
[2023-10-18 16:48] VITALS: RESP 16; TEMP 98.2; O2SAT 98
[2023-10-18 16:50] VITALS: BP_SYST 122; PULSE 75
== END 2023-10-18 16:35 | disposition home or self-care (01) ==
LOC: SED 15:00
DX: I95.9 Hypotension, unspecified (principal); I10 Essential (primary) hypertension; E11.9 Type 2 diabetes mellitus without complications; Z95.0 Presence of cardiac pacemaker; Z88.1 Allergy status to other antibiotic agents; Z88.5 Allergy status to narcotic agent; Z79.899 Other long term (current) drug therapy; Z79.2 Long term (current) use of antibiotics
CPT/HCPCS: 36415; 80048; 81000; 81001; 81015; 83605; 85025; 99283